=== PATIENT | male | born 1945 | race Caucasian/White ===

== ENCOUNTER 2016-12-12 14:44 | Inpatient (IN) | payer MEDICARE ==
--- NOTE | 2016-12-12 15:49 | ED ---
Recheck HPI - General Chief Complaint: Recheck/Abnormal Lab/Rx Stated Complaint: low blood sugar; sent from Dialysis Center Time Seen by Provider: 12/12/16 15:20 Source: patient, family, RN notes reviewed Mode of arrival: wheelchair Limitations: no limitations - History of Present Illness Initial Comments: This is a 71-year-old male with history of chronic renal failure on dialysis who was sent here for evaluation for low hemoglobin and low blood pressure. He feels generally tired and weak denies any fevers chills or sweats he states he always have black stool because he is iron infusions as well as oral iron he denies any change in texture or the color of his stool is had no bright red blood or burgundy colored stools. No bleeding from any other source. He states she's had this before and he could never find a source of bleeding. Per family he did have blood work done today at the Dialysis [facility]tr[facility] which showed a hemoglobin of 5.4 this is down from where was a month ago. - Related Data Home Medications Medication Instructions Recorded Confirmed ALPRAZolam [Xanax] 0.5 mg PO HS 12/12/16 12/12/16 Albuterol Inhaler [Ventolin Hfa 2 puff INHALATION RT-QID PRN 12/12/16 12/12/16 Inhaler] Budesonide/Formoterol Fumarate 2 puff INHALATION RT-BID 12/12/16 12/12/16 [Symbicort 80-4.5 Mcg Inhaler] Cholecalciferol [Vitamin D3] 1,000 unit PO DAILY 12/12/16 12/12/16 Clopidogrel Bisulfate [Plavix] 75 mg PO DAILY 12/12/16 12/12/16 Levothyroxine Sodium [Synthroid] 100 mcg PO DAILY 12/12/16 12/12/16 Liothyronine Sodium [Cytomel] 5 mcg PO BID 12/12/16 12/12/16 Mirtazapine [Remeron] 15 mg PO HS 12/12/16 12/12/16 Multivitamin [Men's Multi-Vitamin] 1 tab PO DAILY 12/12/16 12/12/16 Omeprazole [PriLOSEC] 20 mg PO AC-BRKFST 12/12/16 12/12/16 Tamsulosin [Flomax] 0.4 mg PO DAILY 12/12/16 12/12/16 Ubidecarenone [Co Q-10] 100 mg PO DAILY 12/12/16 12/12/16 Velphoro 500 mg PO AC-TID 12/12/16 12/12/16 Allergies Allergy/AdvReac Type Severity Reaction Status Date / Time cimetidine Allergy Nausea & Verified 12/12/16 15:17 Vomiting & Diarrhea Penicillins Allergy Rash/Hives Verified 12/12/16 15:17 Review of Systems ROS Statement: Those systems with pertinent positive or pertinent negative responses have been documented in the HPI. ROS Other: All systems not noted in ROS Statement are negative. Past Medical History Past Medical History: Coronary Artery Disease (CAD), Chest Pain / Angina, COPD, Hyperlipidemia, Renal Disease History of Any Multi-Drug Resistant Organisms: None Reported Past Surgical History: AICD, Heart Catheterization With Stent Past Psychological History: No Psychological Hx Reported Smoking Status: Former smoker Past Alcohol Use History: None Reported Past Drug Use History: None Reported General Exam - General Exam Comments Initial Comments: This is a well-developed well-nourished awake alert oriented 3 male Limitations: no limitations General appearance: alert Head exam: Present: atraumatic, normocephalic, normal inspection Eye exam: Present: normal appearance, PERRL, EOMI. Absent: scleral icterus, conjunctival injection, periorbital swelling ENT exam: Present: normal exam, mucous membranes moist Neck exam: Present: normal inspection. Absent: tenderness, meningismus, lymphadenopathy Respiratory exam: Present: normal lung sounds bilaterally. Absent: respiratory distress, wheezes, rales, rhonchi, stridor Cardiovascular Exam: Present: regular rate, normal rhythm, normal heart sounds. Absent: systolic murmur, diastolic murmur, rubs, gallop, clicks GI/Abdominal exam: Present: soft, normal bowel sounds. Absent: distended, tenderness, guarding, rebound, rigid Extremities exam: Present: normal inspection, full ROM, normal capillary refill. Absent: tenderness, pedal edema, joint swelling, calf tenderness Back exam: Present: normal inspection Neurological exam: Present: alert, oriented X3, CN II-XII intact Psychiatric exam: Present: normal affect, normal mood Skin exam: Present: warm, dry, intact, pallor. Absent: rash Course Vital Signs 12/12/16 12/12/16 12/12/16 14:52 15:36 15:42 Temperature 97.5 F L Pulse Rate 67 70 Respiratory 20 18 Rate Blood Pressure 81/46 72/45 81/47 O2 Sat by Pulse 88 L 92 L 93 L Oximetry 12/12/16 12/12/16 16:05 16:39 Temperature Pulse Rate 76 Respiratory 18 Rate Blood Pressure 86/48 86/51 O2 Sat by Pulse 100 Oximetry Medical Decision Making - Medical Decision Making I did discuss findings with the patient and family as well as with Dr. Traylor patient will be admitted to units of blood been ordered the lab work is pending from the other facility. - EKG Data -: EKG Interpreted by Me (EKG shows a pacemaker rhythm with occasional P PVCs. Rate was 74 QRS of 20) Disposition Clinical Impression: Anemia, Chronic renal failure syndrome Disposition: ADMITTED IP TO THIS HOSP Condition: Stable
--- NOTE | 2016-12-12 16:53 | ED ---
Disposition Clinical Impression: Anemia, Chronic renal failure syndrome, Hypotensive episode Disposition: ADMITTED IP TO THIS HOSP Condition: Stable Referrals: Jamal Posada DO [Primary Care Provider] - 1-2 days
[2016-12-12 17:16] LABS: Anisocytosis Moderate; Basophils % (A) 1 %; CH 32.3; CHCM 30.5; Eosinophils # (A) 0.3 k/uL (0-0.7); Eosinophils % (A) 11 %; HCT 21.3 % (39.0-53.0); HDW 3.13; Hypochromasia Moderate; Luc # (Auto) 0.11; Luc % (Auto) 4; Lymphocytes # (A) 0.4 k/uL (1.0-4.8); Lymphocytes % (A) 15 %; MCH 32.3 pg (25.0-35.0); MCHC 30.2 g/dL (31.0-37.0); Macrocytosis Marked; Mean Platelet Volume 8.3; Monocytes # (A) 0.2 k/uL (0-1.0); Monocytes % (A) 9 %; Neutrophils # (A) 1.5 k/uL (1.3-7.7); Neutrophils % (A) 60 %; RBC 1.99 m/uL (4.30-5.90); RDW 23.2 % (11.5-15.5); WBC 2.5 k/uL (3.8-10.6); WBC (Perox) 2.52
[2016-12-12 17:21] LABS: HGB 6.4 gm/dL (13.0-17.5)
[2016-12-12 18:45] LABS: Manual Review Performed; Polychromasia Present
[2016-12-12 18:46] LABS: Ovalocytes Present
[2016-12-12 19:01] LABS: Calcium 8.8 mg/dL (8.4-10.2); Potassium 3.3 mmol/L (3.5-5.1); Total Protein 6.1 g/dL (6.3-8.2)
[2016-12-12 19:06] LABS: INR 1.2 (<1.1); Partial Thromboplastin Time 26.7 sec (22.0-30.0); Prothrombin Time 11.5 sec (9.0-12.0)
[2016-12-12 19:16] LABS: Creatine Kinase MB 2.1 ng/mL (0.0-2.4)
[2016-12-12 19:18] LABS: Troponin I 0.27 ng/mL (0.000-0.034)
[2016-12-12] MEDS ORDERED: NALOXONE 0.4 MG/ML 1 ML VIAL IV PRN (21:19)
[2016-12-12 22:35] LABS: Glucose,Whole Blood 94 mg/dL (75-99)
[2016-12-12 23:32] VITALS: BMI 21.7
[2016-12-12] MEDS ORDERED: Potassium Replacement Protocol 1 EACH MISC MISCELLANE PRN (23:47)
[2016-12-13] MEDS: POTASSIUM CHLORIDE ORAL LIQUID 40 MEQ/30 ML CUP NG-TUBE SCH ×2 (00:05→03:43)
[2016-12-13] MEDS ORDERED: SODIUM CHLORIDE 0.9% 1,000 ML IV SCH (00:45)
[2016-12-13 05:24] LABS: Calcium 8.8 mg/dL (8.4-10.2); Magnesium 2.1 mg/dL (1.6-2.3); Phosphorous 3.6 mg/dL (2.5-4.5)
[2016-12-13 05:55] LABS: Anisocytosis Moderate; Aty Lym Flag Slight; CH 31.8; CHCM 30.4; HCT 28.2 % (39.0-53.0); HDW 4.01; Hypochromasia Marked; MCH 32.5 pg (25.0-35.0); MCHC 30.6 g/dL (31.0-37.0); MCV 106.2 fL (80.0-100.0); Macrocytosis Marked; Mean Platelet Volume 8.3; Poikilocytosis Moderate; RBC 2.65 m/uL (4.30-5.90); RDW 22.9 % (11.5-15.5); WBC 3.4 k/uL (3.8-10.6)
[2016-12-13 05:58] LABS: HGB 8.6 gm/dL (13.0-17.5)
[2016-12-13] MEDS: LEVOTHYROXINE 100 MCG TAB PO SCH (06:27)
[2016-12-13] MEDS ORDERED: BENZOCAINE/MENTHOL LOZENG 1 EACH LOZENGE MUCOUS MEM PRN (06:28)
--- NOTE | 2016-12-13 07:39 | XR ---
EXAMINATION TYPE: XR chest 1V DATE OF EXAM: 12/13/2016 6:32 AM COMPARISON: NONE HISTORY: Shortness of breath TECHNIQUE: Single frontal view of the chest is obtained. FINDINGS: Large right pleural effusion is seen. Cardiomegaly with cardiac device noted. Small left p leural effusion and basilar consolidation. Underlying COPD suspected. Dialysis catheter seen with tip overlying the right atrium. Underlying venous congestion suggested. IMPRESSION: 1. Large right pleural effusion with small left effusion and bilateral lower lobe infiltrate. Correla te for venous congestion.
[2016-12-13] MEDS: SYMBICORT 80-4.5 MCG INHALER INHALATION SCH ×2 (07:54→20:59)
[2016-12-13] MEDS: ALBUTEROL NEBULIZED 2.5 MG/3 ML INHALATION PRN ×3 (07:55→20:59)
[2016-12-13] MEDS: CHOLECALCIFEROL 1,000 UNIT TAB PO SCH (08:45)
[2016-12-13] MEDS: LIOTHYRONINE SODIUM 5 MCG TAB PO SCH ×2 (08:45→20:36)
[2016-12-13] MEDS: PANTOPRAZOLE 40 MG TABLET PO SCH (08:45)
--- NOTE | 2016-12-13 10:42 | P.CNPUL ---
History of Present Illness Consult date: 12/13/16 Reason for consult: other Chief complaint: Abnormal labs, possible pneumonia, renal failure, anemia. History of present illness: 71-year-old gentleman who apparently was sent in from my hemodialysis because of a low hemoglobin. His single lobe was apparently 5.4. The patient was given a 2 units of PRBCs. He is a dialysis patient. His primary doctor is Dr. Posada this he also sees Dr. Escobedo and cardiology. Also sees his hemodialysis doctor. Cannot remember his name. He's currently on 0.9 IV at KVO in 2 L nasal cannula. He was would've a week admission to the ICU. The patient really denies any blood in his stools or black tarry stools. Was vomiting up any blood or anything like that. Anyway the patient was admitted to the ICU for observation and he's been stable here throughout. He was admitted on December 12. Review of Systems A 12 point review of system is really not remarkable. He does have a bit of a cough. Not producing really any phlegm. No fever no chills. No shortness of breath. Feels rather well. Past Medical History Past Medical History: Coronary Artery Disease (CAD), Chest Pain / Angina, COPD, Hyperlipidemia, Renal Disease History of Any Multi-Drug Resistant Organisms: None Reported Past Surgical History: AICD, Heart Catheterization With Stent Past Anesthesia/Blood Transfusion Reactions: No Reported Reaction Date of Last Stent Placement:: april 2016 Type of Cardiac Device: AICD Device Placement Date:: april 2016 Past Psychological History: No Psychological Hx Reported Smoking Status: Former smoker Past Alcohol Use History: None Reported Past Drug Use History: None Reported Medications and Allergies Home Medications Medication Instructions Recorded Confirmed Type ALPRAZolam [Xanax] 0.5 mg PO HS 12/12/16 12/12/16 History Albuterol Inhaler [Ventolin Hfa 2 puff INHALATION RT-QID PRN 12/12/16 12/12/16 History Inhaler] Budesonide/Formoterol Fumarate 2 puff INHALATION RT-BID 12/12/16 12/12/16 History [Symbicort 80-4.5 Mcg Inhaler] Cholecalciferol [Vitamin D3] 1,000 unit PO DAILY 12/12/16 12/12/16 History Clopidogrel Bisulfate [Plavix] 75 mg PO DAILY 12/12/16 12/12/16 History Levothyroxine Sodium [Synthroid] 100 mcg PO DAILY 12/12/16 12/12/16 History Liothyronine Sodium [Cytomel] 5 mcg PO BID 12/12/16 12/12/16 History Mirtazapine [Remeron] 15 mg PO HS 12/12/16 12/12/16 History Multivitamin [Men's Multi-Vitamin] 1 tab PO DAILY 12/12/16 12/12/16 History Omeprazole [PriLOSEC] 20 mg PO AC-BRKFST 12/12/16 12/12/16 History Tamsulosin [Flomax] 0.4 mg PO DAILY 12/12/16 12/12/16 History Ubidecarenone [Co Q-10] 100 mg PO DAILY 12/12/16 12/12/16 History Velphoro 500 mg PO AC-TID 12/12/16 12/12/16 History Allergies Allergy/AdvReac Type Severity Reaction Status Date / Time cimetidine Allergy Nausea & Verified 12/12/16 15:17 Vomiting & Diarrhea Penicillins Allergy Rash/Hives Verified 12/12/16 15:17 Physical Exam Osteopathic Statement: *. No significant issues noted on an osteopathic structural exam other than those noted in the History and Physical/Consult. Vitals: Vital Signs Temp Pulse Resp BP Pulse Ox 12/13/16 10:00 69 12 86/52 100 12/13/16 09:00 69 18 85/52 94 L 12/13/16 08:05 61 12/13/16 08:00 97.3 F L 73 15 91/58 90 L 12/13/16 07:55 62 15 12/13/16 07:00 71 15 90 L 12/13/16 06:00 62 15 84/55 92 L 12/13/16 05:00 71 15 86/55 94 L 12/13/16 04:00 98.0 F 70 14 85/58 92 L 12/13/16 03:00 69 13 86/47 96 12/13/16 01:00 69 15 86/46 93 L 12/13/16 00:17 97.8 F 69 16 88/56 93 L 12/13/16 00:00 97.8 F 70 19 87/50 93 L 12/12/16 23:00 55 L 14 82/49 92 L 12/12/16 22:37 72 16 12/12/16 22:10 97.5 F L 69 18 82/54 94 L 12/12/16 21:50 97.7 F 69 20 81/50 97 12/12/16 21:40 98.2 F 70 20 85/52 95 12/12/16 21:23 97.9 F 70 20 91/52 Intake and Output 12/12/16 12/13/16 12/13/16 21:59 06:59 14:59 Intake Total 80 Output Total Balance 80 Intake: IV 80 .9 Nacl 80 Amount of Fluid Infused ( ml) Oral Blood Product Rc As-1 Unit [id number] Rc As-1 Unit [id number] Output: Urine Other: Voiding Method Urinal Weight No acute distress, oriented 3. Next HEENT examination is grossly unremarkable. Mucous membranes are moist. Next Supple. Full range of motion. No adenopathy. Next Cardiovascular examination reveals regular rhythm rate. Heart sounds are somewhat distant. Lungs reveal relatively clear breath sounds. A few scattered mild rhonchi. No wheezes or crackles. Abdomen soft bowel sounds are heard. Next Extremities are intact. Results - Laboratory Findings CBC and BMP: 12/13/16 04:11 12/13/16 04:11 PT/INR, D-dimer PT 11.5 sec (9.0-12.0) 12/12/16 15:35 INR 1.2 (<1.1) 12/12/16 15:35 Abnormal lab findings: Abnormal Labs 12/13/16 12/13/16 04:11 04:11 WBC 3.4 L RBC 2.65 L Hgb 8.6 L D Hct 28.2 L MCV 106.2 H MCHC 30.6 L RDW 22.9 H Plt Count 83 L BUN 24 H Creatinine 3.00 H - Diagnostic Findings Chest x-ray: image reviewed (Chest x-ray labs and medications are reviewed. Chest x-ray appears to show either fluid or infiltrate at the right lung base.) Assessment and Plan (1) Pneumonia Status: Acute (2) Pleural effusion Status: Acute (3) Anemia Status: Acute (4) Chronic renal failure syndrome Status: Acute (5) Hypotensive episode Status: Acute Plan: Plan The patient's doing well. He can be transferred out to the general medical floor. No additional recommendations are made. Labs medications x-rays are all reviewed. His overall condition is very stable. Not really having any respiratory issues or hemodynamic issues at this time. Feeling well. Again only up 0.9 at KVO on 2 L nasal cannula. Did receive 2 units of PRBCs. Time with Patient: Greater than 30
--- NOTE | 2016-12-13 12:13 | P.CRDCN ---
History of Present Illness Reason for Consult (text): Cardiomyopathy. History of present illness: This 71-year-old gentleman who is seen for cardiac evaluation. This patient was sent from the dialysis because of the low pressure and low hemoglobin. This patient had a fall couple of days ago he did have some bleeding from his arm. Hemoglobin initially was 5.4. He subsequently admitted to the intensive care unit. This patient has a known coronary artery disease and he had a stent placed in April 2016 at [facility]. This has subsequently had an AICD placed in and he is on dialysis since June. Patient otherwise was doing fairly well. Physically and functionally independent. She denies any orthopnea PND or denies any significant chest pain. Past Medical History Past Medical History: Coronary Artery Disease (CAD), Chest Pain / Angina, COPD, Hyperlipidemia, Renal Disease History of Any Multi-Drug Resistant Organisms: None Reported Past Surgical History: AICD, Heart Catheterization With Stent Past Anesthesia/Blood Transfusion Reactions: No Reported Reaction Date of Last Stent Placement:: april 2016 Type of Cardiac Device: AICD Device Placement Date:: april 2016 Past Psychological History: No Psychological Hx Reported Smoking Status: Former smoker Past Alcohol Use History: None Reported Past Drug Use History: None Reported Medications and Allergies Home Medications Medication Instructions Recorded Confirmed Type ALPRAZolam [Xanax] 0.5 mg PO HS 12/12/16 12/12/16 History Albuterol Inhaler [Ventolin Hfa 2 puff INHALATION RT-QID PRN 12/12/16 12/12/16 History Inhaler] Budesonide/Formoterol Fumarate 2 puff INHALATION RT-BID 12/12/16 12/12/16 History [Symbicort 80-4.5 Mcg Inhaler] Cholecalciferol [Vitamin D3] 1,000 unit PO DAILY 12/12/16 12/12/16 History Clopidogrel Bisulfate [Plavix] 75 mg PO DAILY 12/12/16 12/12/16 History Levothyroxine Sodium [Synthroid] 100 mcg PO DAILY 12/12/16 12/12/16 History Liothyronine Sodium [Cytomel] 5 mcg PO BID 12/12/16 12/12/16 History Mirtazapine [Remeron] 15 mg PO HS 12/12/16 12/12/16 History Multivitamin [Men's Multi-Vitamin] 1 tab PO DAILY 12/12/16 12/12/16 History Omeprazole [PriLOSEC] 20 mg PO AC-BRKFST 12/12/16 12/12/16 History Tamsulosin [Flomax] 0.4 mg PO DAILY 12/12/16 12/12/16 History Ubidecarenone [Co Q-10] 100 mg PO DAILY 12/12/16 12/12/16 History Velphoro 500 mg PO AC-TID 12/12/16 12/12/16 History Allergies Allergy/AdvReac Type Severity Reaction Status Date / Time cimetidine Allergy Nausea & Verified 12/12/16 15:17 Vomiting & Diarrhea Penicillins Allergy Rash/Hives Verified 12/12/16 15:17 Physical Exam Vitals: Vital Signs Temp Pulse Resp BP Pulse Ox 12/13/16 10:00 69 12 86/52 100 12/13/16 09:00 69 18 85/52 94 L 12/13/16 08:05 61 12/13/16 08:00 97.3 F L 73 15 91/58 90 L 12/13/16 07:55 62 15 12/13/16 07:00 71 15 90 L 12/13/16 06:00 62 15 84/55 92 L 12/13/16 05:00 71 15 86/55 94 L 12/13/16 04:00 98.0 F 70 14 85/58 92 L 12/13/16 03:00 69 13 86/47 96 12/13/16 01:00 69 15 86/46 93 L 12/13/16 00:17 97.8 F 69 16 88/56 93 L 12/13/16 00:00 97.8 F 70 19 87/50 93 L 12/12/16 23:00 55 L 14 82/49 92 L 12/12/16 22:37 72 16 12/12/16 22:10 97.5 F L 69 18 82/54 94 L 12/12/16 21:50 97.7 F 69 20 81/50 97 12/12/16 21:40 98.2 F 70 20 85/52 95 12/12/16 21:23 97.9 F 70 20 91/52 Intake and Output 12/12/16 12/13/16 12/13/16 21:59 06:59 14:59 Intake Total 80 Output Total Balance 80 Intake: IV 80 .9 Nacl 80 Amount of Fluid Infused ( ml) Oral Blood Product Rc As-1 Unit [id number] Rc As-1 Unit [id number] Output: Urine Other: Voiding Method Urinal Weight This patient is comfortable and is not in any acute distress. Vital signs are reviewed. HEENT negative. . Supple there is no increase in jugular venous pressure. No carotid bruits noted. Heart. First and second heart sounds are normal. No significant murmurs are heard. Lungs. The diminished percussive note in the lower one half of the lung field on the right side. Bilateral wheezing noted. Abdomen is soft. Extremities no evidence of any leg edema. EKG shows normal sinus rhythm with ventricular pacing. Chest x-ray shows evidence of moderate sized pleural effusion on the right side. Results 12/13/16 04:11 12/13/16 04:11 CBC 12/13/16 Range/Units 04:11 WBC 3.4 L (3.8-10.6) k/uL RBC 2.65 L (4.30-5.90) m/uL Hgb 8.6 L D (13.0-17.5) gm/dL Hct 28.2 L (39.0-53.0) % Plt Count 83 L (150-450) k/uL Comprehensive Metabolic Panel 12/13/16 Range/Units 04:11 Sodium 137 (137-145) mmol/L Potassium 4.0 (3.5-5.1) mmol/L Chloride 99 (98-107) mmol/L Carbon Dioxide 27 (22-30) mmol/L BUN 24 H (9-20) mg/dL Creatinine 3.00 H (0.66-1.25) mg/dL Glucose 87 (74-99) mg/dL Calcium 8.8 (8.4-10.2) mg/dL Current Medications Generic Name Dose Route Start Last Admin Trade Name Freq PRN Reason Stop Dose Admin Albuterol Sulfate 2.5 mg 12/12/16 21:21 12/13/16 07:55 Ventolin Nebulized INHALATION 2.5 mg RT-QID PRN Administration Shortness Of Breath Alprazolam 0.5 mg 12/13/16 21:00 Xanax PO HS [facility] Aspirin 81 mg 12/14/16 09:00 Aspirin PO DAILY [facility] Benzocaine/Menthol 1 each 12/13/16 06:28 Cepacol Lozenge MUCOUS MEM Q4HR PRN Cough Budesonide/Formoterol Fumarate 2 puff 12/13/16 08:00 12/13/16 07:54 Symbicort 80-4.5 Mcg Inhaler INHALATION 2 puff RT-BID [facility] Administration Cholecalciferol 1,000 unit 12/13/16 09:00 12/13/16 08:45 Vitamin D3 PO 1,000 unit DAILY [facility] Administration Clopidogrel Bisulfate 75 mg 12/14/16 09:00 Plavix PO DAILY [facility] Sodium Chloride 1,000 mls @ 20 mls/hr 12/13/16 00:45 12/13/16 03:43 Saline 0.9% IV 20 mls/hr .Q24H [facility] Administration Levothyroxine Sodium 100 mcg 12/13/16 06:30 12/13/16 06:27 Synthroid PO 100 mcg 0630 [facility] Administration Liothyronine Sodium 5 mcg 12/13/16 09:00 12/13/16 08:45 Cytomel PO 5 mcg BID [facility] Administration Mirtazapine 15 mg 12/13/16 21:00 Remeron PO HS [facility] Miscellaneous Information 1 each 12/12/16 23:47 Potassium Per Protocol MISCELLANE DAILY PRN Per Protocol Protocol Naloxone HCl 0.2 mg 12/12/16 21:19 Narcan IV Q2M PRN Opioid Reversal Pantoprazole Sodium 40 mg 12/13/16 07:30 12/13/16 08:45 Protonix PO 40 mg AC-BRKFST [facility] Administration Intake and Output 12/12/16 12/13/16 12/13/16 21:59 06:59 14:59 Intake Total 80 Output Total Balance 80 Intake: IV 80 .9 Nacl 80 Amount of Fluid Infused ( ml) Oral Blood Product Rc As-1 Unit [id number] Rc As-1 Unit [id number] Output: Urine Other: Voiding Method Urinal Weight 12/13/16 04:11 12/13/16 04:11 Assessment and Plan Plan: This patient has a history of ischemic cardiomyopathy with a prior history of post stent and AICD placement. Patient has evidence of probably congestive heart failure and some degree of fluid overload. Patient's low hemoglobin is improved. We will switch the patient from Effient or Plavix 75 mg daily. Fully with his dialysis is fluid volume will be corrected. We will do echo and Doppler study.
--- NOTE | 2016-12-13 12:41 | CONS ---
DATE OF CONSULTATION: 12/13/2016 REASON FOR CONSULTATION: End-stage renal disease. HISTORY OF PRESENT ILLNESS: Patient is a 71-year-old male who was currently on dialysis on a Wednesday, , Wednesday schedule at [facility]. His back tender pulp drier is Dr. Stovall. Patient was admitted to the hospital with a severely low hemoglobin of 5.4 g/dL. Patient had hurt his left forearm. He had peeling of the skin and significant bleeding from that site. He denies any obvious GI bleeding. He has been transfused 2 units packed RBCs. His current hemoglobin is at 8.6 g/dL. Patient has been hemodynamically stable. PAST MEDICAL HISTORY: End-stage renal disease on dialysis in June of 2016. Coronary artery disease, COPD, hyperlipidemia, CKD bone mineral disorder. PAST SURGICAL HISTORY: Cardiac catheterization, coronary stent placement, AICD placement. SOCIAL HISTORY: Patient is an ex-smoker. Medications at home include Xanax, Vitamin D3, Plavix, Synthroid, Cytomel, Remeron, Prilosec, Flomax, Velphoro, CO Q-10. Allergies include PENICILLIN, CIMETIDINE. On examination, patient is currently comfortable, awake, not in any acute distress. Alert and oriented x3. Blood pressure is 85/52, heart rate 69 per minute. He is afebrile. Examination of the heart, S1 and S2. Examination of lungs, good air entry bilaterally. No crackles or wheezing is heard. Abdomen is soft, nontender. Examination of lower extremities shows no significant edema. NON DESTRUCTIVE EVALUATION SPECIALIST exam is grossly intact. Labs show sodium 137, potassium 4.0. Hemoglobin 8.6 g/dL. ASSESSMENT: 1. End-stage renal disease, on hemodialysis on a Wednesday, , Wednesday schedule. Patient has received 2 units packed RBCs; however, he is not in obvious volume overload. We will assess him tomorrow regarding need for dialysis. Otherwise, he can be dialyzed on his regular day which is Wednesday. 2. Severe anemia with bleeding from skin tear in the right forearm. No obvious GI bleed, status post 2 units packed RBC transfusion, currently at 8.6. Continue to monitor the hemoglobin. 3. Chronic obstructive pulmonary disease, being followed by Pulmonology, maintained on breathing treatments. 4. Pleural effusion, possibly chronic. 5. Coronary artery disease with history of coronary artery stenting. 6. Hypotension, most likely secondary to severe anemia. PLAN: Will assess for need for dialysis tomorrow morning. Continue to follow the hemoglobin levels. Thank you for this consultation.
[2016-12-13 13:41] LABS: Add Differential Manual Differential
[2016-12-13 13:45] LABS: Nucleated Red Blood Cells 0 /100 WBC (0-0); Total Cells Counted 100
[2016-12-13 13:46] LABS: Ovalocytes Present; Polychromasia Present; Target Cells Present
[2016-12-13] MEDS: TAMSULOSIN 0.4 MG CAP.ER.24H PO SCH (17:30)
[2016-12-13] MEDS: CLOPIDOGREL 75 MG TAB PO SCH (17:30)
[2016-12-13] MEDS: SEVELAMER 800 MG TAB PO SCH (17:30)
--- NOTE | 2016-12-13 19:22 | HP ---
DATE OF ADMISSION: 12/12/2016 PRESENTING COMPLAINT: Weak, tired, low hemoglobin. HISTORY OF PRESENTING COMPLAINT: This is a 71-year-old patient of Dr. Posada, rather extensive medical history, was sent in because the patient has been feeling weak, tired, rundown. Patient's hemoglobin was 6.4. Patient does go for his dialysis to [facility]. Patient's chronic stable medical conditions include coronary artery disease, stents, COPD, hyperlipidemia, end-stage kidney disease on hemodialysis Wednesday, and Wednesday, AICD. Patient also has got some insomnia, hypothyroid, BPH, anxiety. Patient had a unilateral kidney, had a cardiac cath recently and then went on dialysis. Patient has also got an abdominal aneurysm. Patient did take a fall 2 to 3 days ago, had a lot of bleeding from his right hand as the skin is thin. Patient was ordered 2 units of blood. He also was hypotensive when he first presented with the blood pressure down in the 80s systolic. Patient's and son at the bedside. Patient initially was admitted into the ICU. REVIEW OF SYSTEMS: CONSTITUTIONAL: Weak and tired. HEENT: Decreased hearing. RESPIRATORY: Baseline short of breath. CARDIOVASCULAR: No chest pain. GASTROINTESTINAL: Occasional loose dark stools and work-up in the past has been negative. HEMATOLOGICAL: Bruising. DERMATOLOGICAL: Dry and thin skin. LYMPHATICS: None. PSYCHIATRY: None. NEUROLOGICAL: No focal weakness. Past medical history of coronary disease and stent, COPD, hyperlipidemia, end-stage kidney disease, hemodialysis, had unilateral kidney, AICD, COPD, insomnia, hyperthyroid, BPH, anxiety, abdominal aneurysm, no appetite. PAST SURGICAL HISTORY: AICD, cardiac cath with stent in April of 2016. PAST SOCIAL HISTORY: Patient smoked about 50 years; stopped last year. Does use a cane, retired police patrol officer, . FAMILY HISTORY: Reviewed, noncontributory to presentation. HOME MEDICATIONS: 1. Remeron 50 mg q.h.s. 2. Men's multivitamin 1 tablet p.o. daily. 3. Ventolin HFA 2 puffs q.i.d. p.r.n. 4. Co Q-10 one hundred mg p.o. daily. 5. Velphoro 500 mg a.c. t.i.d. 6. Xanax 0.5 mg q.h.s. 7. Flomax 0.4 mg p.o. daily. 8. Vitamin D3 three thousand units p.o. daily. 9. Symbicort 80/4.5 two puffs b.i.d. 10. Prilosec 20 mg p.o. at breakfast. 11. Cytomel 5 mcg p.o. b.i.d. 12. Synthroid 100 mcg p.o. daily. 13. Plavix 75 mg p.o. daily. Allergy to CIMETIDINE and PENICILLIN. On examination, vitals on presentation: Temperature 97.5, pulse 67, respirations 20, blood pressure 81/46, pulse ox 92% on room air. GENERAL APPEARANCE: Thin built, lying in bed, awake. EYES: Pupils equal. Conjunctivae are pale. HEENT: Oral cavity dry. NECK: JVD not raised. Mass not palpable. Respiratory effort normal. LUNGS: Diminished breath sounds. CARDIOVASCULAR: First and second sounds normal. No edema. ABDOMEN: Soft, nontender. Liver and spleen not palpable. LYMPHATIC: No lymph nodes palpable in neck or axillae. PSYCHIATRY: Alert and oriented x3, mood and affect normal. NEUROLOGICAL: Pupils equal. Cranial nerves grossly intact. Power and sensation grossly intact. MUSCULOSKELETAL: Evidence of osteoarthritis of multiple joints. DERMATOLOGICAL: Diffuse bruising and patient has got a dressing of the right hand where he had bled. INVESTIGATIONS: White count 2.5, hemoglobin 6.4 after transfusion. 8.6, MCV 107, platelets 83, potassium 3.3, BUN 23, creatinine 2.46. Troponin 0.27. ASSESSMENT: 1. Acute severe symptomatic blood loss anemia causing hypotension from blood loss from injury to the right hand when patient fell. 2. Hypotension from blood loss, present on admission. 3. End-stage kidney disease on hemodialysis Tuesdays, and Wednesday. 4. Chronic obstructive pulmonary disease in an ex-smoker. 5. AICD in place. 6. Hyperlipidemia. 7. Hypothyroidism. Rule out over-replacement. Patient is rather thin built. 8. Abdominal aortic aneurysm. 9. Benign prostatic hypertrophy. 10. Possible underlying chronic anemia, underlying end-stage kidney disease. 11. Troponin leak, not significant with no acute coronary syndrome symptoms likely from hypotension. PLAN: Patient did receive 2 units of blood. Patient will ( ) PPI, has had a previous GI work-up, has no need for further endoscopy at least at this point. This was discussed with the family. They are agreeable to the same. The patient may need erythropoietin injections for his renal failure. Care was discussed with the patient and family at the bedside. Patient probably cannot use the Symbicort inhaler, hence he will use nebulized bronchodilators and Pulmicort. Will also check patient's thyroid status and iron status. Consultation with Nephrology is being done. Care was discussed with the patient's family in detail.
[2016-12-13] MEDS: MELATONIN 3 MG TABLET PO SCH (20:36)
[2016-12-13] MEDS: ALPRAZolam 0.5 MG TAB PO SCH (20:36)
[2016-12-13] MEDS ORDERED: MIRTAZAPINE 15 MG TAB PO SCH (21:00)
[2016-12-14] MEDS: LEVOTHYROXINE 100 MCG TAB PO SCH (06:25)
--- NOTE | 2016-12-14 07:57 | XR ---
EXAMINATION TYPE: XR chest 1V DATE OF EXAM: 12/14/2016 7:34 AM COMPARISON: Prior chest x-ray 13 December 2016 HISTORY: Shortness of breath TECHNIQUE: Single frontal view of the chest is obtained. FINDINGS: Right jugular central venous catheter is present, distal tip is within the right atrium. G enerator is in the left pectoral region, there are leads in the right ventricle, coronary sinus. Basi lar density persists on the right, there is blunting of the costophrenic angles. No evident pneumotho rax. Heart size is stable. Interstitium is increased. Basilar density is greater on the right than on the left. IMPRESSION: Correlate for possible volume overload, congestive heart failure. Similar findings. Ther e may be a loculated right effusion.
[2016-12-14] MEDS: SEVELAMER 800 MG TAB PO SCH ×3 (08:14→16:21)
[2016-12-14] MEDS: PANTOPRAZOLE 40 MG TABLET PO SCH (08:14)
[2016-12-14] MEDS: CHOLECALCIFEROL 1,000 UNIT TAB PO SCH (08:15)
[2016-12-14] MEDS: LIOTHYRONINE SODIUM 5 MCG TAB PO SCH ×2 (08:15→21:54)
[2016-12-14] MEDS: ASPIRIN 81 MG CHEW PO SCH (08:15)
[2016-12-14] MEDS: CLOPIDOGREL 75 MG TAB PO SCH (08:15)
[2016-12-14] MEDS: TAMSULOSIN 0.4 MG CAP.ER.24H PO SCH (08:16)
[2016-12-14] MEDS: ALBUTEROL NEBULIZED 2.5 MG/3 ML INHALATION PRN (08:37)
[2016-12-14] MEDS: SYMBICORT 80-4.5 MCG INHALER INHALATION SCH (08:37)
[2016-12-14] MEDS ORDERED: CLOPIDOGREL 75 MG TAB PO SCH (09:00)
[2016-12-14 09:51] LABS: Anisocytosis Moderate; Basophils % (A) 1 %; CH 31.9; CHCM 30.9; Eosinophils # (A) 0.4 k/uL (0-0.7); Eosinophils % (A) 12 %; HCT 27.4 % (39.0-53.0); HDW 3.76; HGB 8.4 gm/dL (13.0-17.5); Hypochromasia Marked; Luc # (Auto) 0.13; Luc % (Auto) 4; Lymphocytes # (A) 0.4 k/uL (1.0-4.8); Lymphocytes % (A) 12 %; MCH 32.3 pg (25.0-35.0); MCHC 30.8 g/dL (31.0-37.0); MCV 104.8 fL (80.0-100.0); Macrocytosis Marked; Mean Platelet Volume 9.3; Monocytes # (A) 0.2 k/uL (0-1.0); Monocytes % (A) 7 %; Neutrophils % (A) 63 %; Poikilocytosis Slight; RBC 2.61 m/uL (4.30-5.90); RDW 21.9 % (11.5-15.5); WBC 3.2 k/uL (3.8-10.6); WBC (Perox) 3.25
--- NOTE | 2016-12-14 10:22 | P.PN ---
Subjective Patient is feeling better this morning is not short of breath. Is being dialyzed at the moment. Denies chest pain or difficulty in breathing. An echocardiogram I'm going to review the results Objective - Vital Signs Vital signs: Vital Signs Temp 97.3 F L 12/14/16 07:00 Pulse 72 12/14/16 08:50 Resp 19 12/14/16 07:00 BP 96/64 12/14/16 07:00 Pulse Ox 94 L 12/14/16 08:38 Intake & Output 12/13/16 12/14/16 12/14/16 18:59 06:59 18:59 Intake Total 80 Balance 80 Weight 76 kg Intake: IV 80 .9 Nacl 80 Other: Voiding Method Urinal Urinal # Voids 2 # Bowel Movements 0 - Exam Patient is comfortable at rest vital signs are stable chest exam reveals diminished air entry at the bases heart exam reveals first and second heart sounds systolic murmur at the left lower sternal border abdomen is soft exam extremities reveals bilateral 1+ edema - Labs CBC & Chem 7: 12/14/16 08:16 12/13/16 04:11 Labs: Abnormal Lab Results - Last 24 Hours (Table) 12/13/16 12/14/16 Range/Units 04:11 08:16 WBC 3.4 L 3.2 L (3.8-10.6) k/uL RBC 2.65 L 2.61 L (4.30-5.90) m/uL Hgb 8.6 L D 8.4 L (13.0-17.5) gm/dL Hct 28.2 L 27.4 L (39.0-53.0) % MCV 106.2 H 104.8 H (80.0-100.0) fL MCHC 30.6 L 30.8 L (31.0-37.0) g/dL RDW 22.9 H 21.9 H (11.5-15.5) % Plt Count 83 L 82 L (150-450) k/uL Lymphocytes # (Manual) 0.7 L (1.0-4.8) k/uL Assessment and Plan Plan: Shortness of breath secondary to anemia Known cardiomyopathy status post AICD CAD End-stage renal disease and hemodialysis I'm going to review the echocardiogram I reviewed labs I reviewed current medications reviewed the initial consultation
[2016-12-14 10:48] LABS: Manual Review Performed
[2016-12-14 11:35] LABS: Magnesium 2.2 mg/dL (1.6-2.3); Potassium 4.7 mmol/L (3.5-5.1)
[2016-12-14 11:47] LABS: % Iron Saturation 23.1 % (20-50)
--- NOTE | 2016-12-14 11:58 | ECHOF ---
Referral Reason:elevated troponins MEASUREMENTS -------- HEIGHT: 182.9 cm WEIGHT: 75.8 kg BP: 90/56 RVIDd: 3.4 cm (< 3.3) IVSd: 1.1 cm (0.6 - 1.1) LVIDd: 5.1 cm (3.9 - 5.3) LVPWd: 1.1 cm (0.6 - 1.1) IVSs: 1.5 cm LVIDs: 4.5 cm LVPWs: 1.4 cm LA Diam: 4.3 cm (2.7 - 3.8) LAESV Index (A-L): 35.24 ml/m Ao Diam: 2.7 cm (2.0 - 3.7) AV Cusp: 1.7 cm (1.5 - 2.6) LA Diam: 4.5 cm (2.7 - 3.8) MV EXCURSION: 8.677 mm (> 18.000) MV EF SLOPE: 58 mm/s (70 - 150) EPSS: 0.8 cm MV E Thierry: 0.96 m/s MV DecT: 216 ms MV A Thierry: 0.25 m/s MV E/A Ratio: 3.84 RAP: 15.00 mmHg RVSP: 47.51 mmHg FINDINGS -------- Paced rhythm. Pacerwire seen in RV and RA. This was a technically good study. There is borderline concentric left ventricular hypertrophy. Overall left ventricular systolic function is severely impaired with, an EF between 25 - 30 %. The right ventricle is mildly enlarged. LA is moderately dilated 34-39 ml/m2 The right atrium is normal in size. Aortic valve is trileaflet and is mildly thickened. The mitral valve leaflets are mild to moderately thickened. Moderate mitral annular calcification present. Mild mitral regurgitation is present. The peak and mean MV gradients are 4.48mmHg 1.36mmHg as measured by doppler. Mild tricuspid regurgitation present. There is mild to moderate pulmonary hypertension. The right ventricular systolic pressure, as measured by Doppler, is 47.51mmHg. Moderate pulmonic regurgitation. The aortic root size is normal. The inferior vena cava is dilated with no significant inspiratory collapse which is consistent estimated right atrial pressure of >15 mmHg. There is a small, generalized pericardial effusion present. CONCLUSIONS -------- 1. Paced rhythm. 2. The mitral valve leaflets are mild to moderately thickened. 3. Moderate mitral annular calcification present. 4. Mild mitral regurgitation is present. 5. The peak and mean MV gradients are 4.48mmHg 1.36mmHg as measured by doppler. 6. Mild tricuspid regurgitation present. 7. There is mild to moderate pulmonary hypertension. 8. The right ventricular systolic pressure, as measured by Doppler, is 47.51mmHg. 9. Moderate pulmonic regurgitation. 10. The aortic root size is normal. 11. The inferior vena cava is dilated with no significant inspiratory collapse which is consistent estimated right atrial pressure of >15 mmHg. 12. Pacerwire seen in RV and RA. 13. There is a small, generalized pericardial effusion present. 14. This was a technically good study. 15. There is borderline concentric left ventricular hypertrophy. 16. Overall left ventricular systolic function is severely impaired with, an EF between 25 - 30 %. 17. The right ventricle is mildly enlarged. 18. LA is moderately dilated 34-39 ml/m2 19. The right atrium is normal in size. 20. Aortic valve is trileaflet and is mildly thickened. CABLE WIRER: Garland Roman RDCS
--- NOTE | 2016-12-14 13:23 | P.PN ---
Subjective 71-year-old gentleman who apparently was sent in from my hemodialysis because of a low hemoglobin. His single lobe was apparently 5.4. The patient was given a 2 units of PRBCs. He is a dialysis patient. The patient really denies any blood in his stools or black tarry stools. He Was vomiting up any blood.The patient was initially admitted to the ICU because of his low hemoglobin. He was given a total of 2 units of packed RBCs. After being stabilized, the patient was moved out of the intensive care unit. He is currently on a medical floor. He is undergoing his routine dialysis which she does typically 3 days a week, Tuesdays, and Saturdays. His chest x- ray shows a chronic and large right-sided pleural effusion and the patient and his are very much aware of that. He is known to have congestion heart failure with an ejection fraction of 25% and he sees Dr. De Anda regarding his congestion heart failure. He has no chest pain. He was treated for a respiratory tract infection and he was given several courses of antibiotics over the past few months. He was also treated for cellulitis of the lower extremities. Objective - Vital Signs Vital signs: Vital Signs Temp 97.3 F L 12/14/16 07:00 Pulse 72 12/14/16 08:50 Resp 19 12/14/16 07:00 BP 96/64 12/14/16 07:00 Pulse Ox 94 L 12/14/16 08:38 Intake & Output 12/13/16 12/14/16 12/14/16 18:59 06:59 18:59 Intake Total 80 Balance 80 Weight 76 kg Intake: IV 80 .9 Nacl 80 Other: Voiding Method Urinal Urinal Urinal # Voids 2 # Bowel Movements 0 - Exam Head exam was generally normal. There was no scleral icterus or corneal arcus. Mucous membranes were moist.Neck was supple and without jugular venous distension, thyromegaly, or carotid bruits. Carotids were easily palpable bilaterally. There was no adenopathy. Lung sounds are diminished in the right lung base along with some dullness to percussion.Cardiac exam revealed the PMI to be normally situated and sized. The rhythm was regular and no extrasystoles were noted during several minutes of auscultation. The first and second heart sounds were normal and physiologic splitting of the second heart sound was noted. There were no murmurs, rubs, clicks, or gallops.Abdominal exam revealed normal bowel sounds. The abdomen was soft, non-tender, and without masses, organomegaly, or appreciable enlargement of the abdominal aorta. Examination of the extremities revealed easily palpable radial, femoral and pedal pulses. There was no cyanosis, clubbing plus 1 edema. - Labs CBC & Chem 7: 12/14/16 08:16 12/14/16 08:16 Labs: Abnormal Lab Results - Last 24 Hours (Table) 12/13/16 12/14/16 12/14/16 Range/Units 04:11 08:16 08:16 WBC 3.4 L 3.2 L (3.8-10.6) k/uL RBC 2.65 L 2.61 L (4.30-5.90) m/uL Hgb 8.6 L D 8.4 L (13.0-17.5) gm/dL Hct 28.2 L 27.4 L (39.0-53.0) % MCV 106.2 H 104.8 H (80.0-100.0) fL MCHC 30.6 L 30.8 L (31.0-37.0) g/dL RDW 22.9 H 21.9 H (11.5-15.5) % Plt Count 83 L 82 L (150-450) k/uL Lymphocytes # 0.4 L (1.0-4.8) k/uL Lymphocytes # (Manual) 0.7 L (1.0-4.8) k/uL Sodium 133 L (137-145) mmol/L Chloride 96 L (98-107) mmol/L BUN 32 H (9-20) mg/dL Creatinine 4.10 H (0.66-1.25) mg/dL TIBC 234 L (261-462) ug/dL TSH 13.300 H (0.465-4.680) mIU/L Assessment and Plan Plan: Assessment 1 right-sided pleural effusion, chronic, no signs of an acute pneumonia this point. This is most likely related to congestion heart failure and today's chest x-ray shows a stable right-sided pleural effusion 2 renal failure, end-stage renal disease currently on hemodialysis and the patient has been on dialysis since jun 2016 via permacath in his right chest area 3 profound anemia with interval drop in his hemoglobin status post transfusion with 2 units of packed RBCs. Hemoglobin is stable for now and there is no signs of GI bleeding 4 congestion heart failure with an ejection fraction of 20-25% secondary pulmonary hypertension 5 chronic anemia 6 COPD 7 peripheral vascular disease 8 recurrence unless of the lower extremities 9 history of pacemaker/defibrillator insertion 10 coronary artery disease with previous coronary intervention and stenting and previous bypass surgery. 11 chronic hypotension 12 hyperlipidemia 13 BPH 14 hypothyroidism Plan The chest x-ray was reviewed. The pleural effusion is most likely chronic and related to congestion heart failure. The patient is undergoing hemodialysis. He is hemodynamically stable. Follow-up with cardiology. Follow-up with nephrology. Monitor the hemoglobin and make sure there is no signs of GI bleeding. Further recommendations are to follow based on this patient's overall clinical progress.
[2016-12-14] MEDS ORDERED: HEPARIN SODIUM,PORCINE 5,000 UNIT/ML 1 ML VIAL ONE (13:30)
[2016-12-14 13:32] LABS: Hepatitis B Surface Ag Index 0.07
--- NOTE | 2016-12-14 19:19 | PN ---
Patient is seen on hemodialysis, tolerating his treatment fairly well. He is awake, comfortable, not in any acute distress. Blood pressure is about 92/53. He is afebrile. Heart rate 72 per minute. EXAMINATION OF THE HEART: S1 and S2. EXAMINATION OF THE LUNGS: Bilateral breath sounds are heard. ABDOMEN: Soft, nontender. Examination of lower extremities shows no evidence of edema. Labs show hemoglobin 8.4, sodium 133, potassium 4.7. ASSESSMENT: 1. End-stage renal disease, on hemodialysis on a Wednesday, , Wednesday schedule out of [place]. Looking to transfer here to [place] once room is available. 2. Severe anemia at the time of admission, currently improved, status post 2 units packed RBC transfusion. 3. Chronic kidney disease bone mineral disorder, maintained on Renvela. 4. Hypothyroidism. PLAN: Repeat dialysis in a.m., as tomorrow is patient's regular day. He can be discharged tomorrow with plans to follow up as outpatient for his regular dialysis on .
[2016-12-14] MEDS: IPRATROPIUM-ALBUTEROL 3 ML NEB INHALATION SCH (21:19)
[2016-12-14] MEDS: BUDESONIDE 0.5 MG/2 ML NEBU INHALATION SCH (21:19)
[2016-12-14] MEDS: MELATONIN 3 MG TABLET PO SCH (21:53)
[2016-12-14] MEDS: ALPRAZolam 0.5 MG TAB PO SCH (21:53)
[2016-12-14 23:08] VITALS: RESP 18
[2016-12-15] MEDS: LEVOTHYROXINE 100 MCG TAB PO SCH (05:53)
[2016-12-15] MEDS: SEVELAMER 800 MG TAB PO SCH ×2 (08:00→12:15)
[2016-12-15] MEDS: BUDESONIDE 0.5 MG/2 ML NEBU INHALATION SCH (08:06)
[2016-12-15] MEDS: IPRATROPIUM-ALBUTEROL 3 ML NEB INHALATION SCH ×2 (08:06→12:05)
[2016-12-15] MEDS: SYMBICORT 80-4.5 MCG INHALER INHALATION SCH (08:14)
[2016-12-15] MEDS: PANTOPRAZOLE 40 MG TABLET PO SCH ×2 (08:15→12:14)
[2016-12-15 08:24] VITALS: BP 97/38; TEMP 97.6
[2016-12-15 09:33] LABS: Calcium 8.8 mg/dL (8.4-10.2); Magnesium 2.1 mg/dL (1.6-2.3); Potassium 4.5 mmol/L (3.5-5.1)
--- NOTE | 2016-12-15 09:37 | PN ---
DATE OF SERVICE: 12/14/2016 PRESENTING COMPLAINT: Weak and tired. INTERVAL HISTORY: This is a patient who presented with severe symptomatic blood loss anemia after he had a bleed from his right hand. Patient has also got kidney disease. Patient is doing better. Tolerating his diet. Got dialyzed today. Review of systems is done for constitutional, cardiovascular, GI, pulmonary; relevant findings as above. Current medications are reviewed. On examination, temperature 97.3, pulse 70, respiration 19, blood pressure 96/64, pulse ox 98% on 2 L. GENERAL APPEARANCE: Sitting up, comfortable. EYES: Pupils equal. Conjunctivae are pale. NECK: JVD not raised. Mass not palpable. Respiratory effort normal. LUNGS: Diminished breath sounds. CARDIOVASCULAR: First and second sounds normal. No edema. ABDOMEN: Soft, nontender. PSYCHIATRY: Awake, answering questions. INVESTIGATIONS: White count 3.2, hemoglobin 8.4, platelets 82. A 2-D echo shows an EF of 25% to 30%. ASSESSMENT: 1. Acute severe symptomatic blood loss anemia causing hypotension from blood loss from injury to the right hand when patient fell. 2. Hypotension from blood loss, present on admission. 3. End-stage kidney disease on hemodialysis on Wednesday, and Wednesday. 4. Chronic obstructive pulmonary disease in an ex-smoker. 5. AICD, chronic. 6. Hyperlipidemia. 7. Hypothyroidism, probably sick euthyroid. 8. Abdominal aortic aneurysm. 9. Benign prostatic hypertrophy. 10. Anemia of chronic disease, probably underlying end-stage kidney disease. 11. Troponin leak, probably with hemodynamic instability. PLAN: Spoke to Dr. Mcelroy, patient will get dialyzed tomorrow morning and then patient can be discharged after that.
[2016-12-15] MEDS ORDERED: DARBEPOETIN ALFA 40 MCG/0.4 ML SYRINGE SQ SCH (12:00)
--- NOTE | 2016-12-15 12:00 | P.PN ---
Subjective Patient is seen in follow-up for end-stage renal disease. He is maintained on hemodialysis on a Wednesday schedule via permacath. Currently undergoing hemodialysis. Patient was noted to have anemia with a hemoglobin of 6.4 for which she did receive 2 units of packed red blood cell transfusion. Hemoglobin is of yesterday was 8.4. Denies any active chest pain or shortness of breath. No vomiting or diarrhea. Appetite is good. Vital signs are stable. General: The patient appeared well nourished and normally developed. HEENT: Head exam is unremarkable. Neck is without jugular venous distension. LUNGS: Lungs are clear to auscultation and percussion. Breath sounds decreased. HEART: Rate and Rhythm are regular. First and second heart sounds normal. No murmurs, rubs or gallops. ABDOMEN: Abdominal exam reveals normal bowel sounds. Non-tender and non- distended. No evidence of peritonitis. EXTREMITITES: No clubbing, cyanosis, or edema. Objective - Vital Signs Vital signs: Vital Signs Temp 97.6 F 12/15/16 07:00 Pulse 74 12/15/16 08:21 Resp 18 12/15/16 08:00 BP 97/38 12/15/16 07:00 Pulse Ox 99 12/15/16 08:08 Intake & Output 12/14/16 12/15/16 12/15/16 18:59 06:59 18:59 Intake Total 480 Output Total 0 Balance 480 0 Weight 76 kg Intake: Oral 480 Output: Urine 0 Other: Voiding Method Urinal Urinal Urinal # Voids 1 1 # Bowel Movements 0 - Labs CBC & Chem 7: 12/14/16 08:16 12/15/16 08:00 Labs: Abnormal Lab Results - Last 24 Hours (Table) 12/14/16 12/15/16 Range/Units 08:16 08:00 Sodium 133 L 135 L (137-145) mmol/L Chloride 96 L 97 L (98-107) mmol/L BUN 32 H 22 H (9-20) mg/dL Creatinine 4.10 H 3.57 H (0.66-1.25) mg/dL TIBC 234 L (261-462) ug/dL TSH 13.300 H (0.465-4.680) mIU/L Assessment and Plan Plan: Assessment: #1. End-stage renal disease maintained on hemodialysis on a Wednesday schedule via permacath. #2. Acute anemia status post packed red blood cell transfusion. #3. Chronic kidney disease mineral bone disease. Plan: Currently undergoing hemodialysis with goal to liters ultrafiltration. Maintain Aranesp. Maintain Renvela with meals. Possible discharge after dialysis today.
[2016-12-15 12:09] VITALS: PULSE 74
[2016-12-15] MEDS: CHOLECALCIFEROL 1,000 UNIT TAB PO SCH ×2 (12:15→12:17)
[2016-12-15] MEDS: ASPIRIN 81 MG CHEW PO SCH ×2 (12:15→12:18)
[2016-12-15] MEDS: TAMSULOSIN 0.4 MG CAP.ER.24H PO SCH (12:16)
[2016-12-15] MEDS: LIOTHYRONINE SODIUM 5 MCG TAB PO SCH (12:16)
[2016-12-15] MEDS: CLOPIDOGREL 75 MG TAB PO SCH (12:16)
--- NOTE | 2016-12-15 13:14 | XR ---
EXAMINATION TYPE: XR chest 1V DATE OF EXAM: 12/15/2016 1:08 PM CLINICAL HISTORY: Difficulty breathing progress study. COPD. TECHNIQUE: Single AP portable upright view of the chest is obtained. COMPARISON: Chest x-ray from one day earlier FINDINGS: There is stable right internal jugular large bore catheter. There is persistent cardiomega ly with dual lead pacemaker/AICD. There is persistent atherosclerotic change of thoracic aorta. There is persistent moderate-sized right pleural effusion. There is persistent bibasilar atelectasis and/o r infiltrate. There is suggestion of central vascular congestion. Chronic parenchymal changes are see n. Upper lungs remain clear without pneumothorax. Osseous structures are demineralized. IMPRESSION: Overall stable findings, cardiomegaly with central vascular congestion and moderate-siz ed right pleural effusion with bibasilar infiltrate and/or atelectasis all redemonstrated. No signifi cant change from prior.
--- NOTE | 2016-12-15 14:05 | P.PN ---
Subjective 71-year-old gentleman who apparently was sent in from my hemodialysis because of a low hemoglobin. His single lobe was apparently 5.4. The patient was given a 2 units of PRBCs. He is a dialysis patient. The patient really denies any blood in his stools or black tarry stools. He Was vomiting up any blood.The patient was initially admitted to the ICU because of his low hemoglobin. He was given a total of 2 units of packed RBCs. After being stabilized, the patient was moved out of the intensive care unit. He is currently on a medical floor. He is undergoing his routine dialysis which she does typically 3 days a week, Tuesdays, and Saturdays. His chest x- ray shows a chronic and large right-sided pleural effusion and the patient and his are very much aware of that. He is known to have congestion heart failure with an ejection fraction of 25% and he sees Dr. Morton regarding his congestion heart failure. He has no chest pain. He was treated for a respiratory tract infection and he was given several courses of antibiotics over the past few months. He was also treated for cellulitis of the lower extremities. The patient is seen again today 12/15/2016 in follow-up on the regular medical floor. He is awake and alert in no acute distress. He had hemodialysis today and 1.5 L were removed. His chest x-ray reveals overall stable findings of cardiomegaly with central vascular congestion and a moderate size right pleural effusion with bibasilar infiltrate/atelectasis. No significant change from previous. He denies any worsening shortness of breath, cough or congestion. No chills or night sweats. He is maintaining good O2 saturations in the high 90s on 2 L/m per nasal cannula. No significant dyspnea on exertion. Objective - Vital Signs Vital signs: Vital Signs Temp 97.6 F 12/15/16 07:00 Pulse 74 12/15/16 12:19 Resp 18 12/15/16 08:00 BP 97/38 12/15/16 07:00 Pulse Ox 99 12/15/16 08:08 Intake & Output 12/14/16 12/15/16 12/15/16 18:59 06:59 18:59 Intake Total 480 Output Total 0 Balance 480 0 Weight 76 kg Intake: Oral 480 Output: Urine 0 Other: Voiding Method Urinal Urinal Urinal # Voids 1 1 # Bowel Movements 0 - Exam Head exam was generally normal. There was no scleral icterus or corneal arcus. Mucous membranes were moist.Neck was supple and without jugular venous distension, thyromegaly, or carotid bruits. Carotids were easily palpable bilaterally. There was no adenopathy. Lung sounds are diminished in the right lung base along with some dullness to percussion.Cardiac exam revealed the PMI to be normally situated and sized. The rhythm was regular and no extrasystoles were noted during several minutes of auscultation. The first and second heart sounds were normal and physiologic splitting of the second heart sound was noted. There were no murmurs, rubs, clicks, or gallops.Abdominal exam revealed normal bowel sounds. The abdomen was soft, non-tender, and without masses, organomegaly, or appreciable enlargement of the abdominal aorta. Examination of the extremities revealed easily palpable radial, femoral and pedal pulses. There was no cyanosis, clubbing plus 1 edema. - Labs CBC & Chem 7: 12/14/16 08:16 12/15/16 08:00 Labs: Abnormal Lab Results - Last 24 Hours (Table) 12/15/16 Range/Units 08:00 Sodium 135 L (137-145) mmol/L Chloride 97 L (98-107) mmol/L BUN 22 H (9-20) mg/dL Creatinine 3.57 H (0.66-1.25) mg/dL Assessment and Plan Plan: Assessment 1 right-sided pleural effusion, chronic, no signs of an acute pneumonia this point. This is most likely related to congestion heart failure and today's chest x-ray shows a stable right-sided pleural effusion 2 renal failure, end-stage renal disease currently on hemodialysis and the patient has been on dialysis since jun 2016 via permacath in his right chest area 3 profound anemia with interval drop in his hemoglobin status post transfusion with 2 units of packed RBCs. Hemoglobin is stable for now and there is no signs of GI bleeding 4 congestion heart failure with an ejection fraction of 20-25% secondary pulmonary hypertension 5 chronic anemia 6 COPD 7 peripheral vascular disease 8 recurrence unless of the lower extremities 9 history of pacemaker/defibrillator insertion 10 coronary artery disease with previous coronary intervention and stenting and previous bypass surgery. 11 chronic hypotension 12 hyperlipidemia 13 BPH 14 hypothyroidism Plan: The patient was seen and evaluated by Dr. Masters. His chest x-ray was reviewed. The right pleural effusion is most likely chronic in nature and is currently stable. We'll continue with his current medications. Dialysis per nephrology. He could be discharged from the pulmonary standpoint. He is offered a follow-up in our office we can repeat his chest x-ray then. He and his are both encouraged however to call sooner with any recurrence of symptoms or other questions or concerns.
--- NOTE | 2016-12-16 08:17 | DS ---
DATE OF ADMISSION: 12/12/2016 DATE OF DISCHARGE: 12/15/2016 FINAL DIAGNOSES: 1. Acute right hand bleeding secondary to fall. 2. Hypertension from blood loss anemia, present at admission. 3. End-stage kidney disease, on hemodialysis Wednesday, , and Wednesday. 4. Chronic obstructive pulmonary disease in an ex-smoker. 5. AICD, chronic. 6. Hyperlipidemia. 7. Hypothyroidism. 8. Abdominal aortic aneurysm. 9. Benign prostatic hypertrophy. 10. Anemia of chronic disease, probably underlying end-stage kidney disease secondary to. 11. Troponin leak in the setting of renal failure, not significant. HOSPITAL COURSE: This patient presented with hypertension, severe anemia after losing blood from a skin tear after having a fall. Patient did receive 2 units of blood. Hemoglobin at the time of discharge was 8.4 kg. Care was discussed in detail with the patient and . Questions were answered. CONSULTATIONS: 1. Dr. Marie from Nephrology. 2. Dr. Kera Morton from Cardiology. 3. Dr. Hdez from Pulmonary. On examination, lungs decreased breath sounds. CARDIOVASCULAR: First and second seconds normal. DISCHARGE MEDICATIONS: 1. Xanax 0.5 p.o. q.h.s. 2. Ventolin HFA 2 puffs q.i.d. p.r.n. 3. Symbicort 80/4.5 two puffs b.i.d. 4. Vitamin D3 one thousand units p.o. daily. 5. Plavix 75 mg p.o. daily. 6. Synthroid 100 mcg p.o. daily. 7. Cytomel 5 mcg p.o. b.i.d. 8. Men's multivitamin 1 tablet p.o. daily. 9. Prilosec 20 mg at breakfast. 10. Flomax 0.4 mg p.o. daily. 11. Co Q-10 one hundred mg p.o. daily. 12. Velphoro 500 mg a.c. t.i.d. 13. Aspirin 81 mg p.o. daily. 14. Aranesp 40 mcg subQ every 7 days. 15. DuoNeb t.i.d. 16. Melatonin 3 mg p.o. q.h.s. Follow up with Dr. Posada on 12/18/2016. Patient to maintain dialysis, continue schedule. On exam, alert and oriented x3. LUNGS: Decreased breath sounds.
--- NOTE | 2017-01-04 18:30 | DS ---
DATE OF ADMISSION: 12/12/2016 DATE OF DISCHARGE: 12/15/2016 ADDENDUM: CORRECTION: FINAL DIAGNOSES: #2 should Correctly read as: Hypotension from blood loss anemia, present on admission.
== END 2016-12-15 16:13 | disposition home or self-care (01) | DRG 811 ==
LOC: EC 14:44 → 6ICU 21:19 → 4MS4W 12-13 14:11
PROVIDERS: ADMIT Hospitalist; ATTEND Hospitalist
PROC: 30233N1 Transfusion of Nonautologous Red Blood Cells into Peripheral Vein, Percutaneous Approach (ICD-10-PCS; principal; 2016-12-12)
PROC: 5A1D60Z (ICD-10-PCS; 2016-12-14)
DX: D62 Acute posthemorrhagic anemia (principal); N18.6 End stage renal disease; I13.2 Hypertensive heart and chronic kidney disease with heart failure and with stage 5 chronic kidney disease, or end stage renal disease; I95.89 Other hypotension; I27.2 Other secondary pulmonary hypertension; Q60.0 Renal agenesis, unilateral; D63.1 Anemia in chronic kidney disease; J44.9 Chronic obstructive pulmonary disease, unspecified; I71.4 Abdominal aortic aneurysm, without rupture; I25.10 Atherosclerotic heart disease of native coronary artery without angina pectoris; I73.9 Peripheral vascular disease, unspecified; I50.9 Heart failure, unspecified; R74.8 Abnormal levels of other serum enzymes; S61.411A Laceration without foreign body of right hand, initial encounter; E07.81 Sick-euthyroid syndrome; I49.3 Ventricular premature depolarization; I25.5 Ischemic cardiomyopathy; E03.9 Hypothyroidism, unspecified; E78.5 Hyperlipidemia, unspecified; M19.90 Unspecified osteoarthritis, unspecified site; N40.0 Benign prostatic hyperplasia without lower urinary tract symptoms; G47.00 Insomnia, unspecified; F41.9 Anxiety disorder, unspecified; R53.1 Weakness; H91.90 Unspecified hearing loss, unspecified ear; Z88.0 Allergy status to penicillin; Z95.810 Presence of automatic (implantable) cardiac defibrillator; Z99.2 Dependence on renal dialysis; Z87.891 Personal history of nicotine dependence; Z88.8 Allergy status to other drugs, medicaments and biological substances; Z86.19 Personal history of other infectious and parasitic diseases; Z87.09 Personal history of other diseases of the respiratory system; Z79.51 Long term (current) use of inhaled steroids; Z79.899 Other long term (current) drug therapy; Z79.02 Long term (current) use of antithrombotics/antiplatelets; Z95.5 Presence of coronary angioplasty implant and graft; Z95.1 Presence of aortocoronary bypass graft; W19.XXXA Unspecified fall, initial encounter; Y93.9 Activity, unspecified
CPT/HCPCS: 36415; 36430; 71010; 80048; 80053; 82550; 82553; 82607; 82728; 83540; 83550; 83735; 84100; 84439; 84443; 84484; 85025; 85610; 85730; 86850; 86900; 86901; 86920; 87340; 90935; 93005; 93306; 94640; 94760; 99285

== ENCOUNTER 2017-08-11 17:34 | Inpatient (IN) | payer MEDICARE ==
[2017-08-11] MEDS ORDERED: SODIUM CHLORIDE 0.9% 500 ML IV STA (18:03)
[2017-08-11] MEDS ORDERED: methylPREDNISolone SOD SUCCI 125 MG/2 ML VIAL IV STA (18:06)
[2017-08-11] MEDS ORDERED: IPRATROPIUM-ALBUTEROL 3 ML NEB INHALATION STA (18:06)
[2017-08-11 18:31] LABS: Anisocytosis Moderate; Basophils % (A) 1 %; CH 28.4; CHCM 29.7; Eosinophils # (A) 0.1 k/uL (0-0.7); Eosinophils % (A) 4 %; HCT 30.6 % (39.0-53.0); HDW 3.93; HGB 8.8 gm/dL (13.0-17.5); Hypochromasia Marked; Luc # (Auto) 0.17; Luc % (Auto) 4; Lymphocytes # (A) 0.7 k/uL (1.0-4.8); Lymphocytes % (A) 17 %; MCHC 28.9 g/dL (31.0-37.0); Macrocytosis Slight; Mean Platelet Volume 7.4; Monocytes # (A) 0.4 k/uL (0-1.0); Monocytes % (A) 9 %; Neutrophils # (A) 2.7 k/uL (1.3-7.7); Neutrophils % (A) 65 %; Poikilocytosis Slight; RBC 3.16 m/uL (4.30-5.90); RDW 20.8 % (11.5-15.5); VBG PH 7.34 (7.31-7.41); WBC 4.1 k/uL (3.8-10.6); WBC (Perox) 3.83
--- NOTE | 2017-08-11 18:37 | ED ---
Weakness HPI - General Chief complaint: Weakness Stated complaint: Weakness/sob Time Seen by Provider: 08/11/17 17:55 Source: family Mode of arrival: wheelchair Limitations: physical limitation - History of Present Illness Initial comments: 72 years old male with end-stage renal disease on dialysis with a history of coronary artery disease has a pacemaker in place, he had his dialysis done today feeling quite weak his blood pressure was noticed to be 73/30 and oxygen saturation was less than 80. His noticed he was quite shaky quite weak, and ambulate and she also noticed that he was confused his vision was blurred as well. Headaches no neck stiffness no chest pain has a shortness of breath no abdominal pain no frequency urgency dysuria no symptoms of TIA or CVA - Related Data Home Medications Medication Instructions Recorded Confirmed Albuterol Inhaler [Ventolin Hfa 2 puff INHALATION RT-QID PRN 12/12/16 08/11/17 Inhaler] Budesonide/Formoterol Fumarate 2 puff INHALATION RT-BID 12/12/16 08/11/17 [Symbicort 80-4.5 Mcg Inhaler] Clopidogrel Bisulfate [Plavix] 75 mg PO DAILY 12/12/16 08/11/17 Liothyronine Sodium [Cytomel] 5 mcg PO BID 12/12/16 08/11/17 Omeprazole [PriLOSEC] 20 mg PO HS 12/12/16 08/11/17 Midodrine [ProAmatine] 10 mg PO TID 05/29/17 08/11/17 Acetaminophen Tab [Tylenol] 500 mg PO Q6HR PRN 06/26/17 08/11/17 Cyanocobalamin [Vitamin B-12] 500 mcg PO DAILY 06/26/17 08/11/17 Levothyroxine Sodium [Synthroid] 137 mcg PO DAILY 06/26/17 08/11/17 Mirtazapine [Remeron] 15 mg PO HS 06/26/17 08/11/17 Renal Vitamin 1 tab PO HS 06/26/17 08/11/17 ALPRAZolam [Xanax] 0.25 mg PO DAILY PRN 08/11/17 08/11/17 ALPRAZolam [Xanax] 0.5 mg PO HS 08/11/17 08/11/17 Ipratropium-Albuterol Nebulize 3 ml INHALATION RT-QID PRN 08/11/17 08/11/17 [Duoneb 0.5 mg-3 mg/3 ml Soln] Sevelamer [Renvela] 800 mg PO AC-BID 08/11/17 08/11/17 Allergies Allergy/AdvReac Type Severity Reaction Status Date / Time cimetidine Allergy Nausea & Verified 08/11/17 18:35 Vomiting & Diarrhea Penicillins Allergy Rash/Hives Verified 08/11/17 18:35 Review of Systems ROS Statement: Those systems with pertinent positive or pertinent negative responses have been documented in the HPI. ROS Other: All systems not noted in ROS Statement are negative. Past Medical History Past Medical History: Coronary Artery Disease (CAD), Chest Pain / Angina, COPD, Hyperlipidemia, Renal Disease, Thyroid Disorder Additional Past Medical History / Comment(s): ESRD disease on hemodialysis, chronic right-sided pleural effusion, dialysis 3 times a week MWF chronic anemia , CHF with an ejection fraction of 20-25% and secondary pulmonary hypertension, COPD, peripheral vascular disease, recurrent cellulites of the lower extremities , pacemaker defibrillator insertion, coronary artery disease, chronic hypotension, hyperlipidemia, BPH, hypothyroidism History of Any Multi-Drug Resistant Organisms: None Reported Past Surgical History: AICD, Heart Catheterization With Stent Past Anesthesia/Blood Transfusion Reactions: No Reported Reaction Date of Last Stent Placement:: april 2016 Type of Cardiac Device: AICD Device Placement Date:: april 2016 Past Psychological History: No Psychological Hx Reported Smoking Status: Current some day smoker Past Alcohol Use History: None Reported Past Drug Use History: None Reported General Exam - General Exam Comments Initial Comments: General: The patient is awake and alert, looks pale and weak Skin: Skin is warm and dry and no rashes or lesions are noted. Eye: Pupils are equal, round and reactive to light, extra-ocular movements are intact; there is normal conjunctiva bilaterally. Ears, nose, mouth and throat: There are moist mucous membranes and no oral lesions. Neck: The neck is supple, there is no tenderness or JVD. Cardiovascular: There is a regular rate and rhythm. No murmur, rub or gallop is appreciated. Respiratory: To auscultation bilateral, severe COPD and crackles at the bases Gastrointestinal: Soft, non-distended, non-tender abdomen without masses or organomegaly noted. There is no rebound or guarding present. Bowel sounds are unremarkable. Back: There is no tenderness to palpation in the midline. There is no obvious deformity. Musculoskeletal: Normal ROM, no tenderness, There is no pedal edema. There is no calf tenderness or swelling. No cords were appreciated. Neurological: CN II-XII intact, Cranial nerves III through XII are intact. There are no obvious motor or sensory deficits. Coordination appears grossly intact. Speech is normal. Psychiatric: Cooperative, appropriate mood & affect, normal judgment. Limitations: physical limitation Course Vital Signs 08/11/17 08/11/17 08/11/17 17:37 18:11 18:17 Temperature 97.5 F L Pulse Rate 84 84 74 Respiratory 16 18 Rate Blood Pressure 73/30 95/50 O2 Sat by Pulse 78 L 97 Oximetry 08/11/17 08/11/17 08/11/17 18:21 19:02 19:26 Temperature Pulse Rate 84 74 81 Respiratory 16 20 Rate Blood Pressure 93/39 84/46 O2 Sat by Pulse 97 92 L Oximetry EKG Findings - EKG Comments: EKG Findings:: EKG is paced rhythm ventricular rate is 72 QRS duration is 152 QT /QTc is 438/479 Medical Decision Making - Lab Data Result diagrams: 08/11/17 18:16 08/11/17 18:16 Lab Results 08/11/17 08/11/17 08/11/17 Range/Units 18:16 18:16 18:16 WBC 4.1 (3.8-10.6) k/uL RBC 3.16 L (4.30-5.90) m/uL Hgb 8.8 L (13.0-17.5) gm/dL Hct 30.6 L (39.0-53.0) % MCV 97.0 (80.0-100.0) fL MCH 28.0 (25.0-35.0) pg MCHC 28.9 L (31.0-37.0) g/dL RDW 20.8 H (11.5-15.5) % Plt Count 173 (150-450) k/uL Neutrophils % 65 % Lymphocytes % 17 % Monocytes % 9 % Eosinophils % 4 % Basophils % 1 % Neutrophils # 2.7 (1.3-7.7) k/uL Lymphocytes # 0.7 L (1.0-4.8) k/uL Monocytes # 0.4 (0-1.0) k/uL Eosinophils # 0.1 (0-0.7) k/uL Basophils # 0.0 (0-0.2) k/uL Hypochromasia Marked Poikilocytosis Slight Anisocytosis Moderate Macrocytosis Slight PT (9.0-12.0) sec INR (<1.2) APTT (22.0-30.0) sec D-Dimer (<0.60) mg/L FEU VBG pH 7.34 (7.31-7.41) VBG pCO2 55 H (37-51) mmHg VBG HCO3 29 H (24-28) mmol/L Sodium (137-145) mmol/L Potassium (3.5-5.1) mmol/L Chloride (98-107) mmol/L Carbon Dioxide (22-30) mmol/L Anion Gap mmol/L BUN (9-20) mg/dL Creatinine (0.66-1.25) mg/dL Est GFR (MDRD) Af Amer (>60 ml/min/1.73 sqM) Est GFR (MDRD) Non-Af (>60 ml/min/1.73 sqM) Glucose (74-99) mg/dL Plasma Lactic Acid Roderick (0.7-2.0) mmol/L Calcium (8.4-10.2) mg/dL Total Bilirubin (0.2-1.3) mg/dL AST (17-59) U/L ALT (21-72) U/L Alkaline Phosphatase (38-126) U/L Total Creatine Kinase 35 L (55-170) U/L CK-MB (CK-2) 2.7 H* (0.0-2.4) ng/mL CK-MB (CK-2) Rel Index 7.7 Troponin I 0.066 H* (0.000-0.034) ng/mL Total Protein (6.3-8.2) g/dL Albumin (3.5-5.0) g/dL 08/11/17 08/11/17 08/11/17 Range/Units 18:16 18:16 18:16 WBC (3.8-10.6) k/uL RBC (4.30-5.90) m/uL Hgb (13.0-17.5) gm/dL Hct (39.0-53.0) % MCV (80.0-100.0) fL MCH (25.0-35.0) pg MCHC (31.0-37.0) g/dL RDW (11.5-15.5) % Plt Count (150-450) k/uL Neutrophils % % Lymphocytes % % Monocytes % % Eosinophils % % Basophils % % Neutrophils # (1.3-7.7) k/uL Lymphocytes # (1.0-4.8) k/uL Monocytes # (0-1.0) k/uL Eosinophils # (0-0.7) k/uL Basophils # (0-0.2) k/uL Hypochromasia Poikilocytosis Anisocytosis Macrocytosis PT 11.3 (9.0-12.0) sec INR 1.1 (<1.2) APTT 32.8 H (22.0-30.0) sec D-Dimer 3.99 H (<0.60) mg/L FEU VBG pH (7.31-7.41) VBG pCO2 (37-51) mmHg VBG HCO3 (24-28) mmol/L Sodium 134 L (137-145) mmol/L Potassium 3.6 (3.5-5.1) mmol/L Chloride 98 (98-107) mmol/L Carbon Dioxide 27 (22-30) mmol/L Anion Gap 9 mmol/L BUN 9 (9-20) mg/dL Creatinine 1.88 H (0.66-1.25) mg/dL Est GFR (MDRD) Af Amer 43 (>60 ml/min/1.73 sqM) Est GFR (MDRD) Non-Af 36 (>60 ml/min/1.73 sqM) Glucose 58 L (74-99) mg/dL Plasma Lactic Acid Roderick 1.6 (0.7-2.0) mmol/L Calcium 7.8 L (8.4-10.2) mg/dL Total Bilirubin 0.8 (0.2-1.3) mg/dL AST 22 (17-59) U/L ALT 27 (21-72) U/L Alkaline Phosphatase 380 H (38-126) U/L Total Creatine Kinase (55-170) U/L CK-MB (CK-2) (0.0-2.4) ng/mL CK-MB (CK-2) Rel Index Troponin I (0.000-0.034) ng/mL Total Protein 5.7 L (6.3-8.2) g/dL Albumin 2.7 L (3.5-5.0) g/dL Critical Care Time Total Critical Care Time: 60 Critical Care Time: 72 years old male came from dialysis with a blood pressure from 73/30, we gave him some mild fluids we cultured blood and urine and his oxygen saturation was 78 with the oxygen oxygen saturation improved chest x-ray revealed congestive heart failure he also had a confusion that led to a head CT which is normal and d-dimer is quite elevated considering his end-stage renal failure we'll go ahead and do a VQ scan as inpatient and he had a fluid bolus which didn't quite help with his blood pressure we can start him on a norepinephrine he be going to the ICU Dr. Street or has been paged and he be admitted under Dr. Korey dickinson noted his troponin is elevated we will heparinize him and will consult cardiology Disposition Clinical Impression: Hypertension, Myocardial infarction, Congestive heart failure Disposition: ADMITTED IP TO THIS HOSP Condition: Poor Referrals: Jamal Posada DO [Primary Care Provider] - 1-2 days
[2017-08-11 18:44] LABS: INR 1.1 (<1.2); Partial Thromboplastin Time 32.8 sec (22.0-30.0); Prothrombin Time 11.3 sec (9.0-12.0)
[2017-08-11 18:48] LABS: Calcium 7.8 mg/dL (8.4-10.2); Potassium 3.6 mmol/L (3.5-5.1); Total Bilirubin 0.8 mg/dL (0.2-1.3); Total Protein 5.7 g/dL (6.3-8.2)
--- NOTE | 2017-08-11 19:07 | CT ---
EXAMINATION TYPE: CT brain wo con DATE OF EXAM: 08/11/2017 COMPARISON: 06/27/2017 HISTORY: weakness and generalized pain CT DLP: 1184.9 mGycm Automated exposure control for dose reduction was used. FINDINGS: There is cerebral cortical atrophy. There is no mass effect nor midline shift. There is no sign of in tracranial hemorrhage. There is mucosal thickening in the maxillary sinuses. IMPRESSION: CEREBRAL ATROPHY AND CHRONIC SMALL VESSEL ISCHEMIA THERE IS SLIGHTLY WORSE THAN LAST EXAM. THERE IS N EW MILD BILATERAL MAXILLARY SINUSITIS.
--- NOTE | 2017-08-11 19:09 | XR ---
EXAMINATION TYPE: XR chest 2V DATE OF EXAM: 08/11/2017 COMPARISON: 07/05/2017 HISTORY: Weakness TECHNIQUE: Frontal and lateral views of the chest are obtained. FINDINGS: There is pulmonary edema. There is blunting of costophrenic angles and much more on the ri ght side. Thoracic aorta is atheromatous. There is a dual-lumen right central venous catheter with th e tip over the right atrium. There are chest leads. There is left axillary pacemaker with the lead ti p in the right ventricle. IMPRESSION: Congestive heart failure with pulmonary edema and bilateral pleural effusions. No signif icant change compared to last exam.
[2017-08-11 19:18] LABS: Creatine Kinase MB 2.7 ng/mL (0.0-2.4); Troponin I 0.066 ng/mL (0.000-0.034)
[2017-08-11] MEDS ORDERED: NOREPINEPHRIN 4 MG-0.9% NS PMX 4 MG/250 ML ML IV ONE (20:18)
[2017-08-11] MEDS ORDERED: NALOXONE 0.4 MG/ML 1 ML VIAL IV PRN (20:23)
[2017-08-11] MEDS ORDERED: ACETAMINOPHEN TAB 325 MG TAB PO PRN (20:23)
[2017-08-11] MEDS ORDERED: MORPHINE SULFATE 10 MG/ML SYRINGE IV PRN (20:23)
[2017-08-11] MEDS ORDERED: ALBUTEROL INHALER 60 PUFF/8 GM INHALER INHALATION PRN (20:36)
[2017-08-11] MEDS ORDERED: VANCOMYCIN 1,250 MG in SODIUM CHLORIDE 0.9% 250 ML IVPB STA (20:36)
[2017-08-11] MEDS ORDERED: ACETAMINOPHEN TAB 500 MG TAB PO PRN (20:36)
[2017-08-11] MEDS ORDERED: ALPRAZolam 0.25 MG TAB PO PRN (20:36)
[2017-08-11] MEDS ORDERED: cefTRIAXone IN SWFI 2,000 MG/20 ML SYRINGE IVP STA (20:38)
[2017-08-11] MEDS ORDERED: VANCOMYCIN IV PER PHARMACY 1 EACH MISC MISCELLANE ONE (20:45)
--- NOTE | 2017-08-11 22:16 | NM ---
EXAMINATION TYPE: NM pul vent and perfuse DATE OF EXAM: 08/11/2017 COMPARISON: NONE HISTORY: TECHNIQUE: Utilizing inhalation of 67.8 mCi Tc 99m DTPA aerosol and intravenous injection of 5.34 mC i of Tc 99m MAA, ventilation and perfusion images are acquired post injection in multiple projections . FINDINGS: There is a large area of decreased ventilation and perfusion involving the right lung. There is a lar ge right pleural effusion on the chest x-ray today. There is a matched defect at the left lung base r elated to left pleural effusion. I see no ventilation/perfusion mismatch. Perfusion of the lungs is b beverley than the ventilation. IMPRESSION: Large matched defects consistent with an intermediate probability of pulmonary embolism.
[2017-08-11] MEDS ORDERED: HEPARIN SODIUM,PORCINE 10,000 UNIT/ML 1 ML VIAL IV ONE (23:30)
[2017-08-11] MEDS ORDERED: HEPARIN SODIUM,PORCINE 5,000 UNIT/ML 1 ML VIAL IV PRN (23:30)
[2017-08-11] MEDS ORDERED: HEPARIN SODIUM,PORCINE/D5W PMX 25,000 UNIT in DEXTROSE/WATER 1 500ML.BAG IV SCH (23:30)
[2017-08-11] MEDS ORDERED: HEPARIN SODIUM,PORCINE 5,000 UNIT/ML 1 ML VIAL IV ONE (23:45)
[2017-08-12 00:38] LABS: Glucose,Whole Blood 87 mg/dL (75-99)
[2017-08-12] MEDS: LIOTHYRONINE SODIUM 5 MCG TAB PO SCH ×3 (02:34→20:46)
[2017-08-12] MEDS: ALPRAZolam 0.5 MG TAB PO SCH ×2 (02:34→20:46)
[2017-08-12] MEDS: FOLIC ACID-VIT B COMPLEX-VIT C 1 CAP PO SCH ×2 (02:34→20:46)
[2017-08-12] MEDS: MIRTAZAPINE 15 MG TAB PO SCH ×2 (02:35→20:46)
[2017-08-12] MEDS: PANTOPRAZOLE 40 MG TABLET PO SCH ×2 (02:35→20:46)
[2017-08-12] MEDS: SODIUM CHLORIDE 0.9% 500 ML IV SCH (02:51)
[2017-08-12 03:13] LABS: Anisocytosis Moderate; CH 27.1; CHCM 28.6; HCT 31.8 % (39.0-53.0); HDW 3.83; HGB 9.2 gm/dL (13.0-17.5); Hypochromasia Marked; MCH 27.9 pg (25.0-35.0); MCV 96.2 fL (80.0-100.0); Macrocytosis Slight; Mean Platelet Volume 7.3; Poikilocytosis Slight; RBC 3.31 m/uL (4.30-5.90); RDW 21.9 % (11.5-15.5); WBC 4.5 k/uL (3.8-10.6)
[2017-08-12 03:33] LABS: Calcium 8.4 mg/dL (8.4-10.2); Magnesium 1.9 mg/dL (1.6-2.3); Phosphorus 4.3 mg/dL (2.5-4.5); Potassium 4.1 mmol/L (3.5-5.1)
[2017-08-12] MEDS: LEVOTHYROXINE 137 MCG TAB PO SCH (06:47)
--- NOTE | 2017-08-12 07:07 | XR ---
EXAMINATION TYPE: XR chest 1V DATE OF EXAM: 08/12/2017 CLINICAL HISTORY: Difficulty breathing progress study. TECHNIQUE: Single AP portable upright view of the chest is obtained. COMPARISON: Chest x-ray from one day earlier and older studies. FINDINGS: There is stable large bore right internal jugular dialysis catheter with tip felt to be in IVC. There is persistent mild cardiomegaly with dual lead pacemaker/AICD and atherosclerotic thoraci c aorta. There is moderate size right pleural effusion and small size left pleural effusion with asso ciated compressive atelectasis and/or infiltrates. There is central vascular congestion which is slig htly improved. Osseous structures are intact. Atherosclerotic aorta is noted. IMPRESSION: There is persistent cardiomegaly with moderate size right and small size left pleural eff usions and associated bibasilar atelectasis and/or infiltrate felt stable. Improving but still persis tent mild to moderate central vascular congestion however is felt present.
[2017-08-12] MEDS: SYMBICORT 80-4.5 MCG INHALER INHALATION SCH ×2 (07:51→20:01)
[2017-08-12] MEDS: IPRATROPIUM-ALBUTEROL 3 ML NEB INHALATION PRN ×2 (07:51→15:07)
[2017-08-12] MEDS: MIDODRINE 5 MG TAB PO SCH ×3 (08:47→17:33)
[2017-08-12] MEDS: SEVELAMER 800 MG TAB PO SCH ×2 (08:48→17:32)
[2017-08-12] MEDS: HEPARIN SODIUM,PORCINE 5,000 UNIT/ML 1 ML VIAL SQ SCH ×2 (08:49→17:32)
[2017-08-12] MEDS ORDERED: VANCOMYCIN 1,250 MG in SODIUM CHLORIDE 0.9% 250 ML IVPB ONE (09:00)
[2017-08-12] MEDS ORDERED: CLOPIDOGREL 75 MG TAB PO SCH (09:00)
[2017-08-12] MEDS ORDERED: NOREPINEPHRIN 16 MG-0.9%NS PMX 16 MG/250 ML ML IV SCH (09:30)
[2017-08-12] MEDS ORDERED: DARBEPOETIN ALFA 40 MCG/0.4 ML SYRINGE SQ SCH (11:00)
--- NOTE | 2017-08-12 11:02 | P.NPCON ---
History of Present Illness - Reason for Consult end stage renal disease - History of Present Illness Reason for consultation: End-stage renal disease History of present illness: Patient is a 72-year-old male seen in renal consultation for end-stage renal disease. He is maintained on hemodialysis on a Wednesday schedule via permacath. Patient states he underwent dialysis yesterday. Patient states that since Wednesday he's been feeling progressively weaker. He initially refused to go to the hospital but when he went home after dialysis yesterday he felt quite shaky and had blurry vision as well. He was subsequently taken to the hospital. He was noted to be quite hypotensive with systolic blood pressure in the 70s to 80s. He was started on levo fed and is currently on 4 mics. Patient does have systolic CHF with ejection fraction of 20-25% with moderate pulmonary hypertension and his blood pressure tends to run low in the systolic 80s to 90s as an outpatient. He denies any vomiting or diarrhea. Denies chest pain. He denies excessive salt intake. He does not drink excess amounts of fluids. He does have pleural effusions and underwent bilateral thoracentesis during his last hospitalization in June 2017. He then went to an ECF and had developed pneumonia for which she completed antibiotics about 5 days ago. Denies any cough. No fever or chills at this time. Vital signs are stable. General: The patient appeared well nourished and normally developed. HEENT: Head exam is unremarkable. Neck is without jugular venous distension. LUNGS: Lungs are clear to auscultation and percussion. Breath sounds decreased. HEART: Rate and Rhythm are regular. First and second heart sounds normal. No murmurs, rubs or gallops. ABDOMEN: Abdominal exam reveals normal bowel sounds. Non-tender and non- distended. No evidence of peritonitis. EXTREMITITES: 1+ edema. Past Medical History Past Medical History: Coronary Artery Disease (CAD), Chest Pain / Angina, Heart Failure, COPD, Renal Disease, Thyroid Disorder Additional Past Medical History / Comment(s): ESRD disease on hemodialysis, chronic right-sided pleural effusion, dialysis 3 times a week MWF chronic anemia , CHF with an ejection fraction of 20-25% and secondary pulmonary hypertension, COPD, peripheral vascular disease, recurrent cellulites of the lower extremities , pacemaker, defibrillator insertion, coronary artery disease, chronic hypotension, hyperlipidemia, BPH, hypothyroidism History of Any Multi-Drug Resistant Organisms: None Reported Past Surgical History: AICD, Heart Catheterization With Stent, Pacemaker Past Anesthesia/Blood Transfusion Reactions: No Reported Reaction Date of Last Stent Placement:: april 2016 Type of Cardiac Device: AICD Device Placement Date:: april 2016 Past Psychological History: Anxiety, Depression Smoking Status: Former smoker Past Alcohol Use History: Heavy Additional Past Alcohol Use History / Comment(s): Past heavy drinking; quit 2014. Past Drug Use History: None Reported - Past Family History Mother Family Medical History: Diabetes Mellitus, Hypertension, Myocardial Infarction ( [place]) Father Family Medical History: Diabetes Mellitus, Hypertension, Myocardial Infarction ( [place]) Brother(s) Family Medical History: Hypertension Medications and Allergies Home Medications Medication Instructions Recorded Confirmed Type Albuterol Inhaler [Ventolin Hfa 2 puff INHALATION RT-QID PRN 12/12/16 08/11/17 History Inhaler] Budesonide/Formoterol Fumarate 2 puff INHALATION RT-BID 12/12/16 08/11/17 History [Symbicort 80-4.5 Mcg Inhaler] Clopidogrel Bisulfate [Plavix] 75 mg PO DAILY 12/12/16 08/11/17 History Liothyronine Sodium [Cytomel] 5 mcg PO BID 12/12/16 08/11/17 History Omeprazole [PriLOSEC] 20 mg PO HS 12/12/16 08/11/17 History Midodrine [ProAmatine] 10 mg PO TID 05/29/17 08/11/17 History Acetaminophen Tab [Tylenol] 500 mg PO Q6HR PRN 06/26/17 08/11/17 History Cyanocobalamin [Vitamin B-12] 500 mcg PO DAILY 06/26/17 08/11/17 History Levothyroxine Sodium [Synthroid] 137 mcg PO DAILY 06/26/17 08/11/17 History Mirtazapine [Remeron] 15 mg PO HS 06/26/17 08/11/17 History Renal Vitamin 1 tab PO HS 06/26/17 08/11/17 History ALPRAZolam [Xanax] 0.25 mg PO DAILY PRN 08/11/17 08/11/17 History ALPRAZolam [Xanax] 0.5 mg PO HS 08/11/17 08/11/17 History Ipratropium-Albuterol Nebulize 3 ml INHALATION RT-QID PRN 08/11/17 08/11/17 History [Duoneb 0.5 mg-3 mg/3 ml Soln] Sevelamer [Renvela] 800 mg PO AC-BID 08/11/17 08/11/17 History Allergies Allergy/AdvReac Type Severity Reaction Status Date / Time cimetidine Allergy Nausea & Verified 08/11/17 18:35 Vomiting & Diarrhea Penicillins Allergy Rash/Hives Verified 08/11/17 18:35 Physical Exam Vitals: Vital Signs Temp Pulse Resp BP Pulse Ox 08/12/17 08:01 65 08/12/17 07:51 85 08/12/17 07:00 90 20 83/52 99 08/12/17 06:00 84 20 95/53 99 08/12/17 05:00 92 20 95/52 99 08/12/17 04:00 98.5 F 91 20 94/50 96 08/12/17 03:00 89 22 95/53 94 L 08/12/17 02:00 85 20 82/47 92 L 08/12/17 01:38 98.1 F 08/12/17 01:00 86 18 90/50 84 L 08/12/17 00:25 98.1 F 79 20 77/44 90 L 08/12/17 00:00 81 20 90/52 97 08/11/17 23:00 77 18 92/55 97 08/11/17 22:00 80 20 96/52 98 08/11/17 21:40 79 18 101/55 84 L 08/11/17 21:00 68 18 95/53 93 L 08/11/17 20:44 67 18 84/50 94 L 08/11/17 19:26 81 20 84/46 92 L 08/11/17 19:02 74 16 93/39 97 08/11/17 18:21 84 08/11/17 18:17 74 18 95/50 97 08/11/17 18:11 84 08/11/17 17:37 97.5 F L 84 16 73/30 78 L Intake and Output 08/11/17 08/12/17 08/12/17 22:59 06:59 14:59 Intake Total 120 40 Output Total 0 0 Balance 120 40 Intake: IV 120 40 Sodium Chloride 0.9% 500 120 40 ml @ 20 mls/hr IV .Q24H [facility] Rx#:[id number] Output: Urine 0 0 Other: Weight 73.028 kg 72.9 kg 72.9 kg Patient Weight 08/13/17 06:59 Weight 72.9 kg Results - Lab Results Most recent lab results Calcium 8.4 mg/dL (8.4-10.2) 08/12/17 02:54 Phosphorus 4.3 mg/dL (2.5-4.5) 08/12/17 02:54 Magnesium 1.9 mg/dL (1.6-2.3) 08/12/17 02:54 08/12/17 02:54 08/12/17 02:54 Assessment and Plan Plan: Assessment: #1. End-stage renal disease maintained on hemodialysis on a Wednesday schedule via right chest permacath. Patient was not cleared by cardiology to undergo AV fistula surgery. #2. Systolic CHF with ejection fraction of 20-25% with moderate pulmonary hypertension. #3. Chronic hypotension maintained on midodrine due to underlying cardiac status. Currently also on vasopressors. #4. Volume overload. #5. Anemia of chronic kidney disease. Rule out iron deficiency. #6. Chronic kidney disease mineral bone disease maintained on Renvela. Plan: Hemodialysis tomorrow with goal 3-4 L ultrafiltration. Will use cool dialysate. Maintain midodrine 10 mg 3 times daily. Wean levofed. Check iron studies. Start Aranesp. Low-salt and 1500 mL fluid restricted diet. Chest ultrasound today to further characterize the pleural effusions. May require thoracentesis. Thank you for the consultation. I will continue to follow the patient with you during his hospital stay.
--- NOTE | 2017-08-12 11:51 | P.CRDCN ---
History of Present Illness Consult date: 08/12/17 Chief complaint: Weakness History of present illness: This is a pleasant 72-year-old gentleman who sees Dr. Escobedo in the office as an outpatient with an extensive past medical history consistent off coronary artery disease and prior coronary revascularization, severe ischemic cardiomyopathy and status post ICD, end stage renal disease on hemodialysis, chronic persistent atrial fibrillation not on any anticoagulation, was brought to the hospital by his after dialysis yesterday. The patient just was admitted to the hospital a few weeks ago after he was found unconscious at his bed by his . At that point he was intubated and then he was extubated and discharged in stable medical condition. This time the patient was in his usual state of health until yesterday when he had dialysis and 3 L of fluid were taken out on subsequently the patient was feeling weak and shaky and unable to stand up as usual. He did not lose his consciousness. No dizziness or lightheadedness and no syncope. No chest pain or chest discomfort. The blood pressure was found to be low in the 70s and 80s but the patient's blood pressure normally runs in the 80s systolic. The patient was admitted to the hospital and he was started on Levophed to support the blood pressure. Beside that he is on midodrine. The EKG showed ventricular paced rhythm with baseline atrial fibrillation. The cardiac enzymes are slightly elevated but the patient did not have any chest pain or chest discomfort. The chest x-ray showed bilateral pleural effusion and pulmonary vascular congestion. He is going to have dialysis tomorrow. Past Medical History Past Medical History: Coronary Artery Disease (CAD), Chest Pain / Angina, Heart Failure, COPD, Renal Disease, Thyroid Disorder Additional Past Medical History / Comment(s): ESRD disease on hemodialysis, chronic right-sided pleural effusion, dialysis 3 times a week MWF chronic anemia , CHF with an ejection fraction of 20-25% and secondary pulmonary hypertension, COPD, peripheral vascular disease, recurrent cellulites of the lower extremities , pacemaker, defibrillator insertion, coronary artery disease, chronic hypotension, hyperlipidemia, BPH, hypothyroidism History of Any Multi-Drug Resistant Organisms: None Reported Past Surgical History: AICD, Heart Catheterization With Stent, Pacemaker Past Anesthesia/Blood Transfusion Reactions: No Reported Reaction Date of Last Stent Placement:: april 2016 Type of Cardiac Device: AICD Device Placement Date:: april 2016 Past Psychological History: Anxiety, Depression Smoking Status: Former smoker Past Alcohol Use History: Heavy Additional Past Alcohol Use History / Comment(s): Past heavy drinking; quit 2014. Past Drug Use History: None Reported - Past Family History Mother Family Medical History: Diabetes Mellitus, Hypertension, Myocardial Infarction ( [place]) Father Family Medical History: Diabetes Mellitus, Hypertension, Myocardial Infarction ( [place]) Brother(s) Family Medical History: Hypertension Medications and Allergies Home Medications Medication Instructions Recorded Confirmed Type Albuterol Inhaler [Ventolin Hfa 2 puff INHALATION RT-QID PRN 12/12/16 08/11/17 History Inhaler] Budesonide/Formoterol Fumarate 2 puff INHALATION RT-BID 12/12/16 08/11/17 History [Symbicort 80-4.5 Mcg Inhaler] Clopidogrel Bisulfate [Plavix] 75 mg PO DAILY 12/12/16 08/11/17 History Liothyronine Sodium [Cytomel] 5 mcg PO BID 12/12/16 08/11/17 History Omeprazole [PriLOSEC] 20 mg PO HS 12/12/16 08/11/17 History Midodrine [ProAmatine] 10 mg PO TID 05/29/17 08/11/17 History Acetaminophen Tab [Tylenol] 500 mg PO Q6HR PRN 06/26/17 08/11/17 History Cyanocobalamin [Vitamin B-12] 500 mcg PO DAILY 06/26/17 08/11/17 History Levothyroxine Sodium [Synthroid] 137 mcg PO DAILY 06/26/17 08/11/17 History Mirtazapine [Remeron] 15 mg PO HS 06/26/17 08/11/17 History Renal Vitamin 1 tab PO HS 06/26/17 08/11/17 History ALPRAZolam [Xanax] 0.25 mg PO DAILY PRN 08/11/17 08/11/17 History ALPRAZolam [Xanax] 0.5 mg PO HS 08/11/17 08/11/17 History Ipratropium-Albuterol Nebulize 3 ml INHALATION RT-QID PRN 08/11/17 08/11/17 History [Duoneb 0.5 mg-3 mg/3 ml Soln] Sevelamer [Renvela] 800 mg PO AC-BID 08/11/17 08/11/17 History Allergies Allergy/AdvReac Type Severity Reaction Status Date / Time cimetidine Allergy Nausea & Verified 08/11/17 18:35 Vomiting & Diarrhea Penicillins Allergy Rash/Hives Verified 08/11/17 18:35 Physical Exam Vitals: Vital Signs Temp Pulse Resp BP Pulse Ox 08/12/17 11:00 79 32 H 86/52 98 08/12/17 10:00 94 22 97/57 96 08/12/17 09:00 89 85 H 94/55 95 08/12/17 08:01 65 08/12/17 08:00 97.9 F 89 61 H 105/62 98 08/12/17 07:51 85 08/12/17 07:00 90 20 83/52 99 08/12/17 06:00 84 20 95/53 99 08/12/17 05:00 92 20 95/52 99 08/12/17 04:00 98.5 F 91 20 94/50 96 08/12/17 03:00 89 22 95/53 94 L 08/12/17 02:00 85 20 82/47 92 L 08/12/17 01:38 98.1 F 08/12/17 01:00 86 18 90/50 84 L 08/12/17 00:25 98.1 F 79 20 77/44 90 L 08/12/17 00:00 81 20 90/52 97 08/11/17 23:00 77 18 92/55 97 08/11/17 22:00 80 20 96/52 98 08/11/17 21:40 79 18 101/55 84 L 08/11/17 21:00 68 18 95/53 93 L 08/11/17 20:44 67 18 84/50 94 L 08/11/17 19:26 81 20 84/46 92 L 08/11/17 19:02 74 16 93/39 97 08/11/17 18:21 84 08/11/17 18:17 74 18 95/50 97 08/11/17 18:11 84 08/11/17 17:37 97.5 F L 84 16 73/30 78 L Intake and Output 08/11/17 08/12/17 08/12/17 22:59 06:59 14:59 Intake Total 120 350 Output Total 0 0 Balance 120 350 Intake: IV 120 350 Sodium Chloride 0.9% 500 120 100 ml @ 20 mls/hr IV .Q24H [facility] Rx#:[id number] Vancomycin 1,250 mg In 250 Sodium Chloride 0.9% 250 ml @ 125 mls/hr IVPB ONCE ONE Rx#:[id number] Output: Urine 0 0 Other: Weight 73.028 kg 72.9 kg 72.9 kg Patient Weight 08/13/17 06:59 Weight 72.9 kg - Constitutional General appearance: no acute distress - Respiratory Respiratory: bilateral: diminished - Cardiovascular Rhythm: regular Heart sounds: normal: S1, S2 Abnormal Heart Sounds: systolic murmur Results 08/12/17 02:54 08/12/17 02:54 Cardiac Enzymes 08/11/17 08/11/17 Range/Units 18:16 18:16 AST 22 (17-59) U/L CK-MB (CK-2) 2.7 H* (0.0-2.4) ng/mL Troponin I 0.066 H* (0.000-0.034) ng/mL Coagulation 08/11/17 08/12/17 Range/Units 18:16 02:54 PT 11.3 (9.0-12.0) sec APTT 32.8 H 78.0 H (22.0-30.0) sec CBC 08/11/17 08/12/17 Range/Units 18:16 02:54 WBC 4.1 4.5 (3.8-10.6) k/uL RBC 3.16 L 3.31 L (4.30-5.90) m/uL Hgb 8.8 L 9.2 L (13.0-17.5) gm/dL Hct 30.6 L 31.8 L (39.0-53.0) % Plt Count 173 179 (150-450) k/uL Comprehensive Metabolic Panel 08/11/17 08/12/17 Range/Units 18:16 02:54 Sodium 134 L 134 L (137-145) mmol/L Potassium 3.6 4.1 (3.5-5.1) mmol/L Chloride 98 98 (98-107) mmol/L Carbon Dioxide 27 25 (22-30) mmol/L BUN 9 15 (9-20) mg/dL Creatinine 1.88 H 2.30 H (0.66-1.25) mg/dL Glucose 58 L 109 H (74-99) mg/dL Calcium 7.8 L 8.4 (8.4-10.2) mg/dL AST 22 (17-59) U/L ALT 27 (21-72) U/L Alkaline Phosphatase 380 H (38-126) U/L Total Protein 5.7 L (6.3-8.2) g/dL Albumin 2.7 L (3.5-5.0) g/dL Current Medications Generic Name Dose Route Start Last Admin Trade Name Freq PRN Reason Stop Dose Admin Acetaminophen 500 mg 08/11/17 20:36 Tylenol Tab PO Q6HR PRN Pain Albuterol/Ipratropium 3 ml 08/11/17 20:36 08/12/17 07:51 Duoneb 0.5 Mg-3 Mg/3 Ml Soln INHALATION 3 ml RT-QID PRN Administration Shortness Of Breath Alprazolam 0.25 mg 08/11/17 20:36 Xanax PO DAILY PRN Anxiety Alprazolam 0.5 mg 08/11/17 21:00 08/12/17 02:34 Xanax PO Not Given HS [facility] Budesonide/Formoterol Fumarate 2 puff 08/12/17 08:00 08/12/17 07:51 Symbicort 80-4.5 Mcg Inhaler INHALATION 2 puff RT-BID [facility] Administration Clopidogrel Bisulfate 75 mg 08/12/17 09:00 08/12/17 08:58 Plavix PO 75 mg DAILY [facility] Administration Cyanocobalamin 500 mcg 08/12/17 12:00 Vitamin B-12 PO 1200 [facility] Darbepoetin Xander 40 mcg 08/12/17 11:00 Aranesp SQ Q7D [facility] Heparin Sodium (Porcine) 5,000 unit 08/12/17 08:00 08/12/17 08:49 Heparin SQ 5,000 unit Q8HR [facility] Administration Sodium Chloride 500 mls @ 20 mls/hr 08/11/17 23:45 08/12/17 02:51 Saline 0.9% IV Not Given .Q24H [facility] Norepinephrine Bitartrate 16 mg in 250 mls @ 0 mls/hr 08/12/17 09:30 10:27 Levophed-0.9% Nacl 16 Mg/250ml Pmx IV 3 mcg/min .Q0M [facility] 2.813 mls/hr Protocol Administration Titrate Levothyroxine Sodium 137 mcg 08/12/17 06:30 08/12/17 06:47 Synthroid PO 137 mcg 0630 [facility] Administration Liothyronine Sodium 5 mcg 08/11/17 21:00 08/12/17 08:59 Cytomel PO 5 mcg BID [facility] Administration Midodrine 10 mg 08/12/17 07:30 08/12/17 08:47 Proamatine PO 10 mg AC-TID [facility] Administration Mirtazapine 15 mg 08/11/17 21:00 08/12/17 02:35 Remeron PO Not Given HS [facility] Morphine Sulfate 2 mg 08/11/17 20:23 Morphine Sulfate (Inj) IV Q2HR PRN Pain Scale 4 to 5 Multivit/Ca Carb/B Cmplx/FA/Prenat 1 each 08/11/17 21:00 08/12/17 02:34 Nephrocaps PO Not Given HS [facility] Naloxone HCl 0.2 mg 08/11/17 20:23 Narcan IV Q2M PRN Opioid Reversal Pantoprazole Sodium 40 mg 08/11/17 21:00 08/12/17 02:35 Protonix PO Not Given HS [facility] Sevelamer Carbonate 800 mg 08/12/17 07:30 08/12/17 08:48 Renvela PO Not Given AC-BID [facility] Intake and Output 08/11/17 08/12/17 08/12/17 22:59 06:59 14:59 Intake Total 120 350 Output Total 0 0 Balance 120 350 Intake: IV 120 350 Sodium Chloride 0.9% 500 120 100 ml @ 20 mls/hr IV .Q24H [facility] Rx#:[id number] Vancomycin 1,250 mg In 250 Sodium Chloride 0.9% 250 ml @ 125 mls/hr IVPB ONCE ONE Rx#:[id number] Output: Urine 0 0 Other: Weight 73.028 kg 72.9 kg 72.9 kg Patient Weight 08/13/17 06:59 Weight 72.9 kg 08/12/17 02:54 08/12/17 02:54 Assessment and Plan Assessment: This is a 72-year-old gentleman with extensive cardiac history as described above was brought to the hospital by his with generalized weakness and fatigue. Currently the patient is hypotensive and requires vasopressors. We will try to wean him from the Levophed. He is on midodrine 10 mg by mouth 3 times a day which quite high dose. The patient lives with a systolic blood pressure in the 80s. He is asymptomatic from a cardiovascular standpoint of view. I am not concerned about the mildly abnormal cardiac enzymes which is likely secondary to stage renal disease as well as cardiomyopathy. Anyway, the patient is not a candidate for any invasive cardiac workup because he is very frail and has multiple comorbidities. He is on Plavix which we will continue. Thank you for allowing us participate in his care and we'll continue following up with him.
--- NOTE | 2017-08-12 11:59 | US ---
EXAMINATION TYPE: US chest DATE OF EXAM: 08/12/2017 COMPARISON: Chest x-ray from earlier today CLINICAL HISTORY: rt pleural effusion. Right pleural effusion, exam done portable EXAM MEASUREMENTS: Right Pleural Effusion fluid pocket: 7.8 cm Right skin to fluid thickness: 2.5 cm Right side MARKED for possible thoracentesis outside the dept. Pulmonologists are able to review the images in the patient?s EMR. Moderate to large size right pleural effusion is confirmed on 3 images saved as suspected on recent c hest x-ray. IMPRESSIONS: As above
[2017-08-12 12:02] LABS: Glucose,Whole Blood 160 mg/dL (75-99)
[2017-08-12] MEDS: CYANOCOBALAMIN 500 MCG TAB PO SCH (12:19)
--- NOTE | 2017-08-12 14:30 | P.CNPUL ---
History of Present Illness Consult date: 08/12/17 Requesting physician: Cameron Traylor Reason for consult: pleural effusion Chief complaint: Weakness History of present illness: This is a 72-year-old white male with history of multiple medical problems including end-stage renal disease, on hemodialysis, severe ischemic cardiomyopathy and previous ICD placement, history of chronic right-sided pleural effusion, history of chronic atrial fibrillation, history of coronary artery disease and previous coronary revascularization, patient was recently discharged from [facility] on 07/07/2017, and at that time I saw the patient for pleural effusion were and I performed thoracentesis and 1500 mL of fluid were drained. Patient's last dialysis was yesterday, since Wednesday the patient has been progressively weaker. Refused to go to the hospital but when he went home after dialysis yesterday, he felt quite shaky, had some blurred vision, and was generally weak. Brought into the hospital were in he was found to be hypotensive systolic blood pressure was in the low 70s and 80s. Patient was placed on levo fed, however by the time I evaluated the patient in the ICU, he was off norepinephrine. Patient is known to have history of severe LV dysfunction and ejection fraction is 20-25%. His also known to have history of moderate pulmonary hypertension. At any rate considering his chest x-ray is showing pulmonary edema and right-sided pleural effusion, I was asked to see him on consultation. Ultrasound of the chest clearly showed is 7.8 cm pocket of fluid in the right pleural space, and I would likely consider holding anticoagulation therapy, and I will arrange for thoracentesis. Review of Systems 14 point review of systems were obtained, please refer to pertinent positives in the HPI, otherwise remaining systems are negative. Past Medical History Past Medical History: Coronary Artery Disease (CAD), Chest Pain / Angina, Heart Failure, COPD, Renal Disease, Thyroid Disorder Additional Past Medical History / Comment(s): ESRD disease on hemodialysis, chronic right-sided pleural effusion, dialysis 3 times a week MWF chronic anemia , CHF with an ejection fraction of 20-25% and secondary pulmonary hypertension, COPD, peripheral vascular disease, recurrent cellulites of the lower extremities , pacemaker, defibrillator insertion, coronary artery disease, chronic hypotension, hyperlipidemia, BPH, hypothyroidism History of Any Multi-Drug Resistant Organisms: None Reported Past Surgical History: AICD, Heart Catheterization With Stent, Pacemaker Past Anesthesia/Blood Transfusion Reactions: No Reported Reaction Date of Last Stent Placement:: april 2016 Type of Cardiac Device: AICD Device Placement Date:: april 2016 Past Psychological History: Anxiety, Depression Smoking Status: Former smoker Past Alcohol Use History: Heavy Additional Past Alcohol Use History / Comment(s): Past heavy drinking; quit 2014. Past Drug Use History: None Reported - Past Family History Mother Family Medical History: Diabetes Mellitus, Hypertension, Myocardial Infarction ( [place]) Father Family Medical History: Diabetes Mellitus, Hypertension, Myocardial Infarction ( [place]) Brother(s) Family Medical History: Hypertension Medications and Allergies Home Medications Medication Instructions Recorded Confirmed Type Albuterol Inhaler [Ventolin Hfa 2 puff INHALATION RT-QID PRN 12/12/16 08/11/17 History Inhaler] Budesonide/Formoterol Fumarate 2 puff INHALATION RT-BID 12/12/16 08/11/17 History [Symbicort 80-4.5 Mcg Inhaler] Clopidogrel Bisulfate [Plavix] 75 mg PO DAILY 12/12/16 08/11/17 History Liothyronine Sodium [Cytomel] 5 mcg PO BID 12/12/16 08/11/17 History Omeprazole [PriLOSEC] 20 mg PO HS 12/12/16 08/11/17 History Midodrine [ProAmatine] 10 mg PO TID 05/29/17 08/11/17 History Acetaminophen Tab [Tylenol] 500 mg PO Q6HR PRN 06/26/17 08/11/17 History Cyanocobalamin [Vitamin B-12] 500 mcg PO DAILY 06/26/17 08/11/17 History Levothyroxine Sodium [Synthroid] 137 mcg PO DAILY 06/26/17 08/11/17 History Mirtazapine [Remeron] 15 mg PO HS 06/26/17 08/11/17 History Renal Vitamin 1 tab PO HS 06/26/17 08/11/17 History ALPRAZolam [Xanax] 0.25 mg PO DAILY PRN 08/11/17 08/11/17 History ALPRAZolam [Xanax] 0.5 mg PO HS 08/11/17 08/11/17 History Ipratropium-Albuterol Nebulize 3 ml INHALATION RT-QID PRN 11/08/17 11/08/17 History [Duoneb 0.5 mg-3 mg/3 ml Soln] Sevelamer [Renvela] 800 mg PO AC-BID 08/11/17 08/11/17 History Allergies Allergy/AdvReac Type Severity Reaction Status Date / Time cimetidine Allergy Nausea & Verified 08/11/17 18:35 Vomiting & Diarrhea Penicillins Allergy Rash/Hives Verified 08/11/17 18:35 Physical Exam Vitals: Vital Signs Temp Pulse Resp BP Pulse Ox 08/12/17 14:00 71 18 98/59 98 08/12/17 13:00 88 63 H 86/48 99 08/12/17 12:00 96.9 F L 83 16 85/46 98 08/12/17 11:00 79 32 H 86/52 98 08/12/17 10:00 94 22 97/57 96 08/12/17 09:00 89 85 H 94/55 95 08/12/17 08:01 65 08/12/17 08:00 97.9 F 89 61 H 105/62 98 08/12/17 07:51 85 08/12/17 07:00 90 20 83/52 99 08/12/17 06:00 84 20 95/53 99 08/12/17 05:00 92 20 95/52 99 08/12/17 04:00 98.5 F 91 20 94/50 96 08/12/17 03:00 89 22 95/53 94 L 08/12/17 02:00 85 20 82/47 92 L 08/12/17 01:38 98.1 F 08/12/17 01:00 86 18 90/50 84 L 08/12/17 00:25 98.1 F 79 20 77/44 90 L 08/12/17 00:00 81 20 90/52 97 08/11/17 23:00 77 18 92/55 97 08/11/17 22:00 80 20 96/52 98 08/11/17 21:40 79 18 101/55 84 L 08/11/17 21:00 68 18 95/53 93 L 08/11/17 20:44 67 18 84/50 94 L 08/11/17 19:26 81 20 84/46 92 L 08/11/17 19:02 74 16 93/39 97 08/11/17 18:21 84 08/11/17 18:17 74 18 95/50 97 11/08/17 18:11 84 08/11/17 17:37 97.5 F L 84 16 73/30 78 L Intake and Output 08/11/17 08/12/17 08/12/17 22:59 06:59 14:59 Intake Total 120 420.643 Output Total 0 0 Balance 120 420.643 Intake: IV 120 410 Sodium Chloride 0.9% 500 120 160 ml @ 20 mls/hr IV .Q24H [facility] Rx#:[id number] Vancomycin 1,250 mg In 250 Sodium Chloride 0.9% 250 ml @ 125 mls/hr IVPB ONCE ONE Rx#:[id number] Intake, IV Titration 10.643 Amount Norepinephrin 16 mg-0.9% 10.643 Ns Pmx 16 mg In 250 ml @ Titrate IV .Q0M [facility] Rx#: [id number] Output: Urine 0 0 Other: Weight 73.028 kg 72.9 kg 72.9 kg Patient Weight 08/13/17 06:59 Weight 72.9 kg Gen. appearance, comfortable no acute distress. Head exam was generally normal. There was no scleral icterus or corneal arcus. Mucous membranes were moist. Neck was supple and without jugular venous distension, thyromegaly, or carotid bruits. Carotids were easily palpable bilaterally. There was no adenopathy. His got a permacath in his right subclavian area. Exit site is clean at this point Pulmonary: Diminished breath sounds bilaterally, no crackles or rhonchi or wheezes. Heart sounds are distant, positive S1-S2, rhythm. 2/6 systolic murmur throughout the precordium. Abdominal exam revealed normal bowel sounds. The abdomen was soft, non-tender, and without masses, organomegaly, or appreciable enlargement of the abdominal aorta. Examination of the extremities revealed easily palpable radial, femoral and pedal pulses. There was no cyanosis, clubbing or edema. Skin is thin and brittle and there is some ecchymotic areas and some superficial skin tears throughout his upper extremities. Neurologically is awake and alert and there is no focal neurological deficit. Skeletal exam shows no significant deformities or swelling Psychiatric: Adequate mental status examination, patient does have a blunt affect, Results - Laboratory Findings CBC and BMP: 08/12/17 02:54 08/12/17 02:54 PT/INR, D-dimer PT 11.3 sec (9.0-12.0) 08/11/17 18:16 INR 1.1 (<1.2) 08/11/17 18:16 D-Dimer 3.99 mg/L FEU (<0.60) H 08/11/17 18:16 Abnormal lab findings: Abnormal Labs 08/11/17 08/11/17 08/11/17 18:16 18:16 18:16 RBC 3.16 L Hgb 8.8 L Hct 30.6 L MCHC 28.9 L RDW 20.8 H Lymphocytes # 0.7 L APTT D-Dimer VBG pCO2 55 H VBG HCO3 29 H Sodium Creatinine Glucose POC Glucose (mg/dL) Calcium Alkaline Phosphatase Total Creatine Kinase 35 L CK-MB (CK-2) 2.7 H* Troponin I 0.066 H* Total Protein Albumin 08/11/17 08/11/17 08/12/17 18:16 18:16 02:54 RBC Hgb Hct MCHC RDW Lymphocytes # APTT 32.8 H 78.0 H D-Dimer 3.99 H VBG pCO2 VBG HCO3 Sodium 134 L Creatinine 1.88 H Glucose 58 L POC Glucose (mg/dL) Calcium 7.8 L Alkaline Phosphatase 380 H Total Creatine Kinase CK-MB (CK-2) Troponin I Total Protein 5.7 L Albumin 2.7 L 08/12/17 08/12/17 08/12/17 02:54 02:54 12:01 RBC 3.31 L Hgb 9.2 L Hct 31.8 L MCHC 29.0 L RDW 21.9 H Lymphocytes # APTT D-Dimer VBG pCO2 VBG HCO3 Sodium 134 L Creatinine 2.30 H Glucose 109 H POC Glucose (mg/dL) 160 H Calcium Alkaline Phosphatase Total Creatine Kinase CK-MB (CK-2) Troponin I Total Protein Albumin - Diagnostic Findings Chest x-ray: image reviewed Additional studies: Ultrasound of the chest was also reviewed and showed good sized right-sided pleural effusion. Assessment and Plan Assessment: Impression: 1 acute hypovolemic shock, possibility of sepsis and septic shock is less likely. His hypertension seems to be related to his recent hemodialysis and ultrafiltration. Not to mention the patient is known to have history of chronic hypotension related to severe LV function and has been on midodrine 10 mg 3 times a day for quite some time. 2 chronic right-sided pleural effusion and chronic systolic congestive heart failure. Will likely consider again a right-sided thoracentesis however I would have to hold Plavix for now. 3 multiple comorbidities including chronic renal failure and end-stage renal disease, COPD, peripheral vessel occlusive disease, coronary artery disease and previous stenting as well as previous bypass surgery, chronic hypotension, hyperlipidemia, hypothyroidism, chronic anemia, chronic medical debility, and previous history of syncope. Recommendation: Continue present supportive care measures, discussed his condition with his daughter at bedside, will likely arrange for thoracentesis in the next 24 hours. Time with Patient: Greater than 30
[2017-08-12 16:14] LABS: Iron Saturation 19.23 (15.00-50.00)
[2017-08-12 17:32] LABS: Glucose,Whole Blood 153 mg/dL (75-99)
--- NOTE | 2017-08-12 19:33 | HP ---
HISTORY AND PHYSICAL DATE OF ADMISSION: 08/11/2017. DATE OF SERVICE: 08/12/2017 PRESENTING COMPLAINT: Tired, short of breath. HISTORY OF PRESENTING COMPLAINT: This is a pleasant 72-year-old patient of Dr. Posada, rather extensive medical history. Patient has known end-stage kidney disease on hemodialysis Wednesday, , and Wednesday for close to a year and a half. The patient is a heavy ex-smoker. The patient normally runs a systolic blood pressure in the 70s. History is obtained from the patient and the at the bedside. The patient has been rather weak and needs to be transferred from bed to the wheelchair, barely able to walk. The patient's appetite has been fair. The patient has not been feeling well for the last 3 or 4 days. Patient did go home after hemodialysis yesterday. He felt really weak and tired. Again, blood pressure down in the 70s systolic. Like I said, the patient's blood pressure normally does run that low. The patient was short of breath. The patient was put on Levophed, admitted to the ICU. The patient has known chronic pleural effusion, was here in the hospital about 4 weeks ago and had pleural effusion that was tapped. The patient also had congestive heart failure with EF of 20% to 25%. Denies any fever. Some cough. REVIEW OF SYSTEMS: CONSTITUTIONAL: Weak, tired. HEENT: None. RESPIRATORY: Baseline short of breath. CARDIOVASCULAR: As above. GASTROINTESTINAL: Last bowel movement 5 days ago. GENITOURINARY: Does not make urine. MUSCULOSKELETAL: Aches and pains in joints. DERMATOLOGICAL: Some chronic skin changes. HEMATOLOGIC: None. LYMPHATIC: None. PSYCHIATRY: Some depression. NEUROLOGICAL: Generalized weakness of muscles. PAST MEDICAL HISTORY: End-stage kidney disease on hemodialysis, COPD, AICD, hyperlipidemia, hypothyroid, AAA, BPH, anemia, CHF from systolic and diastolic dysfunction, EF 20% to 25%, bilateral pleural effusion, secondary pulmonary hypertension, coronary artery disease with stent, depression. PAST SURGICAL HISTORY: Cardiac cath with stent, AICD, pacemaker. SOCIAL HISTORY: Patient was a heavy drinker, stopped in 2014. Smoked a pack a day for 50 years, stopped about a year and a half ago. Lives with his . FAMILY HISTORY: Diabetes, hypertension, myocardial infarction. HOME MEDICATIONS: 1. Renal vitamin 1 tablet p.o. q.h.s. 2. Renvela 800 mg p.o. a.c. b.i.d. 3. Prilosec 20 mg p.o. q.h.s. 4. Remeron 15 mg p.o. q.h.s. 5. Midodrine 10 mg p.o. t.i.d. 6. Cytomel 5 mcg p.o. daily. 7. Synthroid 137 mcg p.o. daily. 8. DuoNeb q.i.d. p.r.n. 9. Vitamin B12 500 mcg p.o. daily. 10.Plavix 75 mg p.o. daily. 11.Symbicort 80/4.5, 2 puffs b.i.d. 12.Ventolin HFA 2 puffs q.i.d. p.r.n. 13.Tylenol 500 mg every 6 hours p.r.n. 14.Xanax 0.5 p.o. q.h.s. ALLERGIES: TO CIMETIDINE, PENICILLIN. PHYSICAL EXAMINATION: VITAL SIGNS: On presentation, temperature 97.5, pulse 84, respirations 16, blood pressure 73/30, pulse ox 98% on room air. GENERAL APPEARANCE: Thin build, sitting up, tired-appearing. EYES: Showing exophthalmos. Conjunctivae pale. HEENT: External nose and ears normal. Oral cavity normal. NECK: JVD unable to assess. Mass not palpable. RESPIRATORY: Effort increased. LUNGS: Decreased breath sounds. Some crackles and wheezing. CARDIOVASCULAR: First and second sounds normal. Slight edema present. ABDOMEN: Soft, nontender. Liver, spleen not palpable. LYMPHATIC: No lymph nodes palpable in neck or axillae. PSYCHIATRY: Alert and oriented x3. Mood and affect tired-appearing. CHEST WALL: Right chest wall hemodialysis catheter. LOWER EXTREMITY: Slight redness is present with scabs are present. MUSCULOSKELETAL: Evidence of osteoarthritis in multiple joints. INVESTIGATIONS: White count 4.1, hemoglobin 8.8. D-dimer 3.99. Potassium 3.6, BUN 9, creatinine 1.88. Troponin 0.066. Albumin 2.7. Chest x-ray shows pleural effusion and pulmonary edema, more so on the right side. ASSESSMENT: 1. Acute on chronic congestive heart failure exacerbation with systolic and diastolic dysfunction, ejection fraction 20% to 25% from underlying hypertensive heart disease. 2. End-stage kidney disease on hemodialysis Wednesday, and Wednesday. 3. Acute chronic obstructive pulmonary disease exacerbation in an ex-smoker. 4. Automatic implantable cardioverter-defibrillator. 5. Hyperlipidemia. 6. Hypothyroidism. 7. Benign prostatic hypertrophy. 8. Anemia secondary to chronic kidney disease. 9. Bilateral pleural effusion. 10.Underlying congestive heart failure, right greater than left. 11.Secondary pulmonary hypertension secondary to chronic obstructive pulmonary disease. 12.Coronary artery disease with prior history of stent. 13.Depression, not otherwise specified. 14.Moderate protein-calorie malnutrition with decreased muscle mass, hypoalbuminemia. 15.Secondary hyperparathyroidism. 16.Chronic hypotension from decreased muscle mass. Poor ejection fraction. 17.CODE STATUS: FULL. PLAN: The patient has been on a Levophed drip. Cardiology, Pulmonary, Nephrology were consulted. The patient is already on midodrine. The patient has a very slight cellulitis of the lower extremity. We will use Silvadene cream with Kerlix and Medhat wrap. This should also help with the blood pressure. Will check patient's thyroid status, as I feel it may be a bit over-replaced, given that he has a bit of exophthalmos. Care was discussed in detail with the patient and the . Questions were answered. MMGERALDOL / GABRIELN: [id number] /
[2017-08-12] MEDS: IPRATROPIUM-ALBUTEROL 3 ML NEB INHALATION SCH (20:01)
[2017-08-13] MEDS: SODIUM CHLORIDE 0.9% 500 ML IV SCH ×2 (00:43→23:17)
[2017-08-13] MEDS: HEPARIN SODIUM,PORCINE 5,000 UNIT/ML 1 ML VIAL SQ SCH ×4 (00:49→23:17)
[2017-08-13 04:45] LABS: Anisocytosis Moderate; Basophils % (A) 0 %; CHCM 28.7; Eosinophils % (A) 0 %; HCT 29.1 % (39.0-53.0); HDW 3.71; HGB 8.7 gm/dL (13.0-17.5); Hypochromasia Marked; Luc # (Auto) 0.18; Luc % (Auto) 3; Lymphocytes # (A) 0.5 k/uL (1.0-4.8); Lymphocytes % (A) 9 %; MCH 28.4 pg (25.0-35.0); MCHC 29.7 g/dL (31.0-37.0); MCV 95.4 fL (80.0-100.0); Macrocytosis Slight; Mean Platelet Volume 8.3; Monocytes # (A) 0.4 k/uL (0-1.0); Monocytes % (A) 7 %; Neutrophils # (A) 4.2 k/uL (1.3-7.7); Neutrophils % (A) 80 %; Poikilocytosis Slight; RBC 3.05 m/uL (4.30-5.90); RDW 22.1 % (11.5-15.5); WBC 5.2 k/uL (3.8-10.6); WBC (Perox) 5.69
[2017-08-13 05:05] LABS: Calcium 8.8 mg/dL (8.4-10.2); Phosphorus 5.7 mg/dL (2.5-4.5); Potassium 3.8 mmol/L (3.5-5.1)
[2017-08-13] MEDS: LEVOTHYROXINE 137 MCG TAB PO SCH (06:17)
[2017-08-13] MEDS: SYMBICORT 80-4.5 MCG INHALER INHALATION SCH ×2 (07:12→20:46)
[2017-08-13] MEDS: IPRATROPIUM-ALBUTEROL 3 ML NEB INHALATION SCH ×4 (07:12→20:50)
[2017-08-13] MEDS: MIDODRINE 5 MG TAB PO SCH ×3 (07:52→22:56)
[2017-08-13] MEDS: SEVELAMER 800 MG TAB PO SCH ×2 (07:52→22:57)
[2017-08-13] MEDS: LIOTHYRONINE SODIUM 5 MCG TAB PO SCH ×2 (08:46→22:57)
--- NOTE | 2017-08-13 09:05 | XR ---
EXAMINATION TYPE: XR chest 1V DATE OF EXAM: 08/13/2017 COMPARISON: 08/12/2017 INDICATION: Congestive heart failure TECHNIQUE: Single frontal view of the chest is obtained. FINDINGS: The heart size is normal. The pulmonary vasculature is prominent. There is a moderate right pleural effusion. A small left pleural effusion is present. These appear st able. Some mild infiltrate is within the lungs likely on the basis of pulmonary edema or compressive atelectasis. Pacemaker overlies left chest. EKG leads overlie the chest. Double-lumen catheter is on the right wit h the tips in right atrium. IMPRESSION: 1. Moderate right and small left pleural effusion, stable. 2. Mild stable pulmonary edema or compressive atelectasis.
--- NOTE | 2017-08-13 10:37 | P.PN ---
Subjective Progress Note Date: 08/13/17 Principal diagnosis: Hypertension This is a pleasant 72-year-old gentleman who sees Dr. Escobedo in the office as an outpatient with an extensive past medical history consistent off coronary artery disease and prior coronary revascularization, severe ischemic cardiomyopathy and status post ICD, end stage renal disease on hemodialysis, chronic persistent atrial fibrillation not on any anticoagulation, was brought to the hospital by his after dialysis yesterday. The patient just was admitted to the hospital a few weeks ago after he was found unconscious at his bed by his . At that point he was intubated and then he was extubated and discharged in stable medical condition. This time the patient was in his usual state of health until yesterday when he had dialysis and 3 L of fluid were taken out on subsequently the patient was feeling weak and shaky and unable to stand up as usual. He did not lose his consciousness. No dizziness or lightheadedness and no syncope. No chest pain or chest discomfort. The blood pressure was found to be low in the 70s and 80s but the patient's blood pressure normally runs in the 80s systolic. The patient was admitted to the hospital and he was started on Levophed to support the blood pressure. Beside that he is on midodrine. The EKG showed ventricular paced rhythm with baseline atrial fibrillation. The cardiac enzymes are slightly elevated but the patient did not have any chest pain or chest discomfort. The chest x-ray showed bilateral pleural effusion and pulmonary vascular congestion. On follow-up with the patient on August 13, overall he is feeling better. He is off Levophed and currently he is on midodrine only. He just underwent pleurocentesis and 2 L of fluid were taken out. Otherwise the patient is asymptomatic. Objective - Vital Signs Vital signs: Vital Signs Temp 98.1 F 08/13/17 04:00 Pulse 78 08/13/17 07:23 Resp 20 08/13/17 07:00 BP 84/57 08/13/17 07:00 Pulse Ox 98 08/13/17 06:00 Intake & Output 08/12/17 08/13/17 08/13/17 18:59 06:59 18:59 Intake Total 750.643 440 160 Output Total 0 0 0 Balance 750.643 440 160 Weight 72.9 kg 78.6 kg Intake: IV 490 240 60 Sodium Chloride 0.9% 500 240 240 60 ml @ 20 mls/hr IV .Q24H [facility] Rx#:[id number] Vancomycin 1,250 mg In 250 Sodium Chloride 0.9% 250 ml @ 125 mls/hr IVPB ONCE ONE Rx#:[id number] Intake, IV Titration 10.643 Amount Norepinephrin 16 mg-0.9% 10.643 Ns Pmx 16 mg In 250 ml @ Titrate IV .Q0M [facility] Rx#: [id number] Oral 250 200 100 Output: Urine 0 0 0 Other: Voiding Method Urinal # Voids 0 0 - Constitutional General appearance: Present: no acute distress - Respiratory Respiratory: bilateral: diminished - Cardiovascular Heart sounds: normal: S2 Abnormal Heart Sounds: Present: systolic murmur - Labs CBC & Chem 7: 08/13/17 04:26 08/13/17 04:26 Labs: Abnormal Lab Results - Last 24 Hours (Table) 08/12/17 08/12/17 08/12/17 Range/Units 02:54 12:01 17:30 RBC (4.30-5.90) m/uL Hgb (13.0-17.5) gm/dL Hct (39.0-53.0) % MCHC (31.0-37.0) g/dL RDW (11.5-15.5) % Lymphocytes # (1.0-4.8) k/uL Sodium (137-145) mmol/L BUN (9-20) mg/dL Creatinine (0.66-1.25) mg/dL Glucose (74-99) mg/dL POC Glucose (mg/dL) 160 H 153 H (75-99) mg/dL Phosphorus (2.5-4.5) mg/dL Iron 40 L (65-175) ug/dL TIBC 208 L (228-460) ug/dL Ferritin 947.6 H (22.0-322.0) ng/mL 08/13/17 08/13/17 Range/Units 04:26 04:26 RBC 3.05 L (4.30-5.90) m/uL Hgb 8.7 L (13.0-17.5) gm/dL Hct 29.1 L (39.0-53.0) % MCHC 29.7 L (31.0-37.0) g/dL RDW 22.1 H (11.5-15.5) % Lymphocytes # 0.5 L (1.0-4.8) k/uL Sodium 133 L (137-145) mmol/L BUN 33 H (9-20) mg/dL Creatinine 3.50 H (0.66-1.25) mg/dL Glucose 128 H (74-99) mg/dL POC Glucose (mg/dL) (75-99) mg/dL Phosphorus 5.7 H (2.5-4.5) mg/dL Iron (65-175) ug/dL TIBC (228-460) ug/dL Ferritin (22.0-322.0) ng/mL Microbiology - Last 24 Hours (Table) 08/11/17 18:16 Blood Culture - Preliminary Blood No Growth after 24 hours Assessment and Plan Assessment: This is a 72-year-old gentleman with extensive cardiac history as described above was brought to the hospital by his with generalized weakness and fatigue. The patient of Levophed and currently he is on midodrine to support the blood pressure. He is asymptomatic from a cardiovascular standpoint of view. We'll continue the current medical treatment and follow-up with the patient for additional 24 hours.
--- NOTE | 2017-08-13 11:29 | XR ---
EXAMINATION TYPE: XR chest 1V portable DATE OF EXAM: 08/13/2017 COMPARISON: 08/13/2017 earlier exam INDICATION: Postthoracentesis, right pleural effusion TECHNIQUE: Single frontal view of the chest is obtained. FINDINGS: The heart size is enlarged. The pulmonary vasculature is slightly prominent. The moderate right pleural effusion is diminished the right base. Some mild residual atelectasis may be at the right base. The left pleural effusion is stable. Electronic device overlies left chest. Cat heter present on the right with the tips in the right atrium is stable. No pneumothorax is evident po st thoracentesis. IMPRESSION: 1. No pneumothorax post right-sided thoracentesis.
--- NOTE | 2017-08-13 11:54 | PN ---
PROGRESS NOTE Patient is seen for followup for end-stage renal disease. He was admitted to the hospital with weakness and hypotension. Patient had been on Levophed overnight. This morning, the Levophed has been discontinued. He was also volume overloaded. He had dialysis. Patient will be dialyzed today. He is maintained on oral midodrine. He does have ischemic cardiomyopathy and normally runs low blood pressure with systolic in the 80s to 90s. PHYSICAL EXAMINATION: Today, patient is comfortable. He is asking for his lower extremity wraps to be removed. Blood pressure is 100/62, heart rate 73 per minute. He is afebrile. Examination of the heart S1, S2. Examination lungs, decreased breath sounds bases. Abdomen is soft, nontender. Examination of the lower extremities shows bilateral extremities to be wrapped. LABS: Revealed sodium 133, potassium 3.8, BUN 33, serum creatinine 3.5, hemoglobin 8.7 g/dL. ASSESSMENT: 1. End-stage renal disease, on hemodialysis on a Wednesday, Wednesday, Wednesday schedule. Patient will be dialyzed today. 2. Volume overload. We will try to increase UF as tolerated. 3. Systolic congestive heart failure with ejection fraction 20% to 25%, which is chronic with moderate pulmonary hypertension. 4. Anemia of chronic disease. 5. Chronic kidney disease mineral bone disease, maintained on Renvela. PLAN: Hemodialysis today. Maintain midodrine and increase oral intake. MMODL / IJN: [id number] /
--- NOTE | 2017-08-13 12:23 | P.PN ---
Subjective Progress Note Date: 08/13/17 Principal diagnosis: Acute hypotension and acute hypovolemic shock. This is a 72-year-old white male with history of multiple medical problems including end-stage renal disease, on hemodialysis, severe ischemic cardiomyopathy and previous ICD placement, history of chronic right-sided pleural effusion, history of chronic atrial fibrillation, history of coronary artery disease and previous coronary revascularization, patient was recently discharged from [facility] on 07/07/2017, and at that time I saw the patient for pleural effusion were and I performed thoracentesis and 1500 mL of fluid were drained. Patient's last dialysis was yesterday, since Wednesday the patient has been progressively weaker. Refused to go to the hospital but when he went home after dialysis yesterday, he felt quite shaky, had some blurred vision, and was generally weak. Brought into the hospital were in he was found to be hypotensive systolic blood pressure was in the low 70s and 80s. Patient was placed on levo fed, however by the time I evaluated the patient in the ICU, he was off norepinephrine. Patient is known to have history of severe LV dysfunction and ejection fraction is 20-25%. His also known to have history of moderate pulmonary hypertension. At any rate considering his chest x-ray is showing pulmonary edema and right-sided pleural effusion, I was asked to see him on consultation. Ultrasound of the chest clearly showed is 7.8 cm pocket of fluid in the right pleural space, and I would likely consider holding anticoagulation therapy, and I will arrange for thoracentesis. Reevaluated today on 08/13/2017, patient is basically about the same, continues to remain generally weak. Some shortness of breath with any activity, chest x- ray and ultrasound of the chest were reviewed, and I proceeded with a right- sided thoracentesis today, 2000 mL of fluid was removed from the right pleural space. Patient is going to receive hemodialysis today, and this is planned shortly after my thoracentesis. Patient is not requiring any hemodynamic support. CBC showed hemoglobin of 8.7 and electrolytes are normal BUN is 33 creatinine 3.50. Remains on antibiotics empirically, however I will go ahead and discontinue vancomycin. Blood cultures are negative so far Objective - Vital Signs Vital signs: Vital Signs Temp 97.9 F 08/13/17 08:00 Pulse 69 08/13/17 11:38 Resp 16 08/13/17 11:00 BP 100/62 08/13/17 11:00 Pulse Ox 98 08/13/17 11:00 Intake & Output 08/12/17 08/13/17 08/13/17 18:59 06:59 18:59 Intake Total 750.643 440 200 Output Total 0 0 0 Balance 750.643 440 200 Weight 72.9 kg 78.6 kg Intake: IV 490 240 100 Sodium Chloride 0.9% 500 240 240 100 ml @ 20 mls/hr IV .Q24H [facility] Rx#:[id number] Vancomycin 1,250 mg In 250 Sodium Chloride 0.9% 250 ml @ 125 mls/hr IVPB ONCE ONE Rx#:[id number] Intake, IV Titration 10.643 Amount Norepinephrin 16 mg-0.9% 10.643 Ns Pmx 16 mg In 250 ml @ Titrate IV .Q0M [facility] Rx#: [id number] Oral 250 200 100 Output: Urine 0 0 0 Other: Voiding Method Urinal # Voids 0 0 # Bowel Movements 1 - Exam Gen. appearance, comfortable no acute distress. Head exam was generally normal. There was no scleral icterus or corneal arcus. Mucous membranes were moist. Patient looks a bit pale. Neck was supple and without jugular venous distension, thyromegaly, or carotid bruits. Carotids were easily palpable bilaterally. There was no adenopathy. His got a permacath in his right subclavian area. Exit site is clean at this point Pulmonary: Diminished breath sounds bilaterally, no crackles or rhonchi or wheezes. Heart sounds are distant, positive S1-S2, rhythm. 2/6 systolic murmur throughout the precordium. Abdominal exam revealed normal bowel sounds. The abdomen was soft, non-tender, and without masses, organomegaly, or appreciable enlargement of the abdominal aorta. Examination of the extremities revealed easily palpable radial, femoral and pedal pulses. There was no cyanosis, clubbing or edema. Skin is thin and brittle and there is some ecchymotic areas and some superficial skin tears throughout his upper extremities. Neurologically is awake and alert and there is no focal neurological deficit. Skeletal exam shows no significant deformities or swelling Psychiatric: Adequate mental status examination, patient does have a blunt affect, - Labs CBC & Chem 7: 08/13/17 04:26 08/13/17 04:26 Labs: Abnormal Lab Results - Last 24 Hours (Table) 08/12/17 08/12/17 08/13/17 Range/Units 02:54 17:30 04:26 RBC 3.05 L (4.30-5.90) m/uL Hgb 8.7 L (13.0-17.5) gm/dL Hct 29.1 L (39.0-53.0) % MCHC 29.7 L (31.0-37.0) g/dL RDW 22.1 H (11.5-15.5) % Lymphocytes # 0.5 L (1.0-4.8) k/uL Sodium (137-145) mmol/L BUN (9-20) mg/dL Creatinine (0.66-1.25) mg/dL Glucose (74-99) mg/dL POC Glucose (mg/dL) 153 H (75-99) mg/dL Phosphorus (2.5-4.5) mg/dL Iron 40 L (65-175) ug/dL TIBC 208 L (228-460) ug/dL Ferritin 947.6 H (22.0-322.0) ng/mL 08/13/17 Range/Units 04:26 RBC (4.30-5.90) m/uL Hgb (13.0-17.5) gm/dL Hct (39.0-53.0) % MCHC (31.0-37.0) g/dL RDW (11.5-15.5) % Lymphocytes # (1.0-4.8) k/uL Sodium 133 L (137-145) mmol/L BUN 33 H (9-20) mg/dL Creatinine 3.50 H (0.66-1.25) mg/dL Glucose 128 H (74-99) mg/dL POC Glucose (mg/dL) (75-99) mg/dL Phosphorus 5.7 H (2.5-4.5) mg/dL Iron (65-175) ug/dL TIBC (228-460) ug/dL Ferritin (22.0-322.0) ng/mL Microbiology - Last 24 Hours (Table) 08/11/17 18:16 Blood Culture - Preliminary Blood No Growth after 24 hours Assessment and Plan Assessment: Impression: 1 acute hypovolemic shock, possibility of sepsis and septic shock is less likely. His hypertension seems to be related to his recent hemodialysis and ultrafiltration. Not to mention the patient is known to have history of chronic hypotension related to severe LV function and has been on midodrine 10 mg 3 times a day for quite some time. 2 chronic right-sided pleural effusion and chronic systolic congestive heart failure. Will likely consider again a right-sided thoracentesis however I would have to hold Plavix for now. 3 status post right sided thoracentesis and 2 L of fluid were removed. This was done on 08/13/2017. 4 multiple comorbidities including chronic renal failure and end-stage renal disease, COPD, peripheral vessel occlusive disease, coronary artery disease and previous stenting as well as previous bypass surgery, chronic hypotension, hyperlipidemia, hypothyroidism, chronic anemia, chronic medical debility, and previous history of syncope. Recommendation: Continue present supportive care measures, discussed his condition with his at bedside, patient could be transferred to a monitored bed on selective. Time with Patient: Less than 30
[2017-08-13] MEDS: CYANOCOBALAMIN 500 MCG TAB PO SCH (12:34)
--- NOTE | 2017-08-13 13:01 | PCN ---
PROCEDURE NOTE OPERATIVE REPORT: Right-sided thoracentesis. PREOPERATIVE DIAGNOSIS: Large right pleural effusion. POSTOPERATIVE DIAGNOSIS: Large right pleural effusion. ANESTHESIA USED: 3 mL of 1% lidocaine. PROCEDURE: The patient was placed in a sitting upright position, leaning over a table in front of him. Then, the area below the right scapula was prepared in a sterile fashion and drapes were applied. The area of the fluid was earlier localized by ultrasound guidance. At that same level, which is the level of the 8th intercostal space and tip of the scapula, the area was locally anesthetized with lidocaine. Then a standard 22- gauge needle was inserted and advanced into the pleural space until the fluid was localized to the needle. Then a small tiny incision was made at the same site using a scalpel, and the catheter with a needle was inserted at the same site, advanced into the pleural space until the fluid was obtained. Then, the catheter was advanced over the needle into the pleural space, and the needle was pulled out. Freely flowing fluid was noted, roughly 2000 mL of dennis colored fluid removed from the right pleural space. The fluid was not sent for diagnostic studies since it was already done previously. The procedure was well tolerated. No evidence of any immediate complication. A total of 2000 mL were drained from the right pleural space. MMODL / IJN: [id number] /
[2017-08-13 15:46] LABS: Calcium 8.7 mg/dL (8.4-10.2); Potassium 3.8 mmol/L (3.5-5.1)
[2017-08-13] MEDS ORDERED: MIDODRINE 5 MG TAB PO STA (15:52)
--- NOTE | 2017-08-13 17:15 | PN ---
PROGRESS NOTE DATE OF SERVICE: 08/13/2017 ATTENDING NOTE: Patient was seen and examined by me. I discussed with my nurse practitioner, Ms. Burt. Patient is in the ICU with hypotension, had been on Levophed. Patient today had 2 L of fluid tapped from the chest by Dr. Street. Breathing is better. Eating a bit better. EXAMINATION: Afebrile, pulse 72, blood pressure 93/52, pulse 96% on room air. Sitting up. LUNGS: Decreased breath sounds. Awake. INVESTIGATIONS: White count 5.2, hemoglobin 8.7. Potassium 3.8. ASSESSMENT: 1. Acute on chronic congestive heart failure exacerbation from systolic and diastolic dysfunction, ejection fraction 20% to 25%, underlying hypertensive heart disease. 2. Status post thoracentesis. 3. Chronically hypotensive for multiple reasons. The patient had been on a small dose of Levophed overnight. PLAN: Care was discussed with the patient and at the bedside. Will check the patient's thyroid status. Prognosis guarded. MMODL / IJN: [id number] /
--- NOTE | 2017-08-13 19:50 | P.PN ---
Progress Note - Text Progress Note Date: 08/13/17 DATE OF SERVICE: 08/13/2017 PRESENTING COMPLAINT: Tired short of breath HISTORY OF PRESENT ILLNESS: 72-year-old male resents to the emergency department because he is not been feeling well for the last 3 or 4 days. Has end-stage kidney disease with hemodialysis on Wednesdays. Patient had been to his most recent hemodialysis treatment and he felt more weak and tired and usual blood pressure was found to be in the 70s systolic. Chest x-ray showed pleural effusions and pulmonary edema more so on the right side. Found to be anemic acute on chronic congestive heart failure exacerbation and was admitted for the same. INTERVAL HISTORY: 08/13/2017: Patient seen in follow-up today in the ICU, appears tired, patient is status post thoracentesis at the bedside by Dr. Vega, 2 L of fluid removed. Patient' s breathing is much improved. Tolerating about 50% of his diet, is primarily wheelchair-bound so he requires assistance for moving about. Planning for hemodialysis today and remove 3 L if patient can tolerate. REVIEW OF SYSTEMS: Done for constitutional ,cardiovascular, GI, pulmonary with relevant findings as above. CURRENT MEDICATIONS DuoNeb's, Xanax 0.25 mg by mouth daily when necessary, Xanax 0.5 mg by mouth at bedtime, budesonide/formoterol, Aranesp 40 g subcu's every 7 days, heparin 5000 units subcu every 8 hours, Synthroid 137 g by mouth daily Cytomel 5 g by mouth twice a day, ProAmatine 10 mg by mouth before meals 3 times a day, Remeron 15 mg by mouth at bedtime Nephrocaps one by mouth at bedtime, Protonix 40 mg by mouth at bedtime, Renvela 800 mg by mouth before meals twice a day, Silvadene cream applied for local wound care PHYSICAL EXAM VITAL SIGNS: Temperature 97.9, pulse 83, respiratory rate 20, blood pressure 84/57, oxygen saturation 97% on 3 L nasal cannula. GENERAL APPEARANCE: Thin build Lying in bed, not in distress. EYES: Pupils equal. Conjunctiva normal. NECK: JVD not raised. Mass not palpable. RESPIRATORY: Respiratory effort normal. Lungs diminished to auscultation. CARDIOVASCULAR: First and second sounds normal. No edema. ABDOMEN: Soft. Liver and spleen not palpable. No tenderness. No mass palpable. PSYCHIATRY: Alert and oriented x3. Mood and affect normal. INVESTIGATIONS: ASSESSMENT: -Acute on chronic congestive heart failure exacerbation from systolic and diastolic dysfunction, ejection fraction 20-25%. Underlying hypertensive heart disease. -Status post thoracentesis, 2 L of fluid removed from the right pleural space -Chronically hypotensive for multiple reasons. Patient has been on a small dose of Levophed overnight now discontinued. -End-stage kidney disease on hemodialysis Wednesday, and Wednesday. -Acute chronic obstructive pulmonary disease exacerbation and an ex-smoker. -Automatic implantable cardioverter defibrillator. -Hyperlipidemia. -Hypothyroidism. -Benign prostatic hypertrophy. -Anemia secondary to chronic kidney disease. -Bilateral pleural effusion. -Underlying congestive heart failure, right greater than left. -Secondary pulmonary hypertension secondary to chronic obstructive pulmonary disease. -Coronary artery disease with prior history of stent. -Depression not otherwise specified. -Moderate protein calorie malnutrition with decreased muscle mass and hypoalbuminemia -Secondary hyperparathyroidism. -Chronic hypotension from decreased muscle mass. Poor ejection fraction. -CODE STATUS: FULL PLAN: Patient is status post right-sided thoracentesis with 2 L of fluid removed, and overall patient is back to his baseline. Patient could be transferred to a monitored bed on 6 E. We'll check thyroid in the morning. Prognosis remains guarded plan of care discussed with the and the patient at the bedside they are in agreement. We will follow closely. POUND ATTENDANT statement: Patient was seen and examined by nurse practitioner Dulce Burt and all elements of the case discussed with attending Dr. Traylor
[2017-08-13] MEDS: FOLIC ACID-VIT B COMPLEX-VIT C 1 CAP PO SCH (22:57)
[2017-08-13] MEDS: MIRTAZAPINE 15 MG TAB PO SCH (22:57)
[2017-08-13] MEDS: ALPRAZolam 0.5 MG TAB PO SCH (22:57)
[2017-08-13] MEDS: PANTOPRAZOLE 40 MG TABLET PO SCH (22:57)
[2017-08-14 06:17] LABS: Anisocytosis Moderate; Basophils % (A) 0 %; CH 27.7; CHCM 28.5; Eosinophils # (A) 0.2 k/uL (0-0.7); Eosinophils % (A) 3 %; HCT 30.2 % (39.0-53.0); HGB 8.6 gm/dL (13.0-17.5); Hypochromasia Marked; Luc % (Auto) 2; Lymphocytes # (A) 0.5 k/uL (1.0-4.8); Lymphocytes % (A) 10 %; MCH 27.9 pg (25.0-35.0); MCHC 28.3 g/dL (31.0-37.0); MCV 98.6 fL (80.0-100.0); Macrocytosis Moderate; Mean Platelet Volume 8.1; Monocytes # (A) 0.4 k/uL (0-1.0); Monocytes % (A) 8 %; Neutrophils # (A) 3.5 k/uL (1.3-7.7); Neutrophils % (A) 76 %; Poikilocytosis Slight; RBC 3.07 m/uL (4.30-5.90); RDW 22.3 % (11.5-15.5); WBC 4.6 k/uL (3.8-10.6); WBC (Perox) 4.51
[2017-08-14 06:33] LABS: Calcium 8.6 mg/dL (8.4-10.2); Magnesium 1.9 mg/dL (1.6-2.3); Phosphorus 3.4 mg/dL (2.5-4.5); Potassium 3.3 mmol/L (3.5-5.1)
[2017-08-14] MEDS: LEVOTHYROXINE 137 MCG TAB PO SCH (06:45)
[2017-08-14] MEDS: MIDODRINE 5 MG TAB PO SCH ×3 (06:45→16:53)
[2017-08-14] MEDS: SEVELAMER 800 MG TAB PO SCH ×2 (06:45→16:53)
[2017-08-14] MEDS: IPRATROPIUM-ALBUTEROL 3 ML NEB INHALATION SCH ×4 (07:45→20:00)
[2017-08-14] MEDS: SYMBICORT 80-4.5 MCG INHALER INHALATION SCH ×2 (07:45→20:00)
[2017-08-14] MEDS: HEPARIN SODIUM,PORCINE 5,000 UNIT/ML 1 ML VIAL SQ SCH ×3 (09:10→22:14)
[2017-08-14] MEDS: LIOTHYRONINE SODIUM 5 MCG TAB PO SCH ×2 (09:11→22:12)
[2017-08-14] MEDS ORDERED: POTASSIUM CHLORIDE ER 20 MEQ TAB.ER PO STA (09:43)
--- NOTE | 2017-08-14 09:43 | P.PN ---
Subjective Patient is seen in follow-up for end-stage renal disease. He is maintained on hemodialysis on a Wednesday schedule via right chest permacath. Patient presented with hypotension and generalized weakness. He was initially on vasopressors which has now been discontinued. He is currently resting in bed. No vomiting or diarrhea. Denies chest pain or shortness of breath. Oral intake is fair. He does have chronic CHF with ejection fraction of 20-25% with moderate pulmonary hypertension. He underwent right-sided thoracentesis on August 13 with 2 L drained. Vital signs are stable. General: The patient appeared well nourished and normally developed. HEENT: Head exam is unremarkable. Neck is without jugular venous distension. LUNGS: Lungs are clear to auscultation and percussion. Breath sounds decreased. HEART: Rate and Rhythm are regular. First and second heart sounds normal. No murmurs, rubs or gallops. ABDOMEN: Abdominal exam reveals normal bowel sounds. Non-tender and non- distended. No evidence of peritonitis. EXTREMITITES: No clubbing, cyanosis, or edema. Objective - Vital Signs Vital signs: Vital Signs Temp 96.9 F L 08/14/17 08:00 Pulse 69 08/14/17 08:00 Resp 18 08/14/17 08:00 BP 98/67 08/14/17 08:00 Pulse Ox 88 L 08/14/17 04:00 Intake & Output 08/13/17 08/14/17 08/14/17 18:59 06:59 18:59 Intake Total 480 160 0 Output Total 2000 Balance -1520 160 0 Weight 79.5 kg Intake: IV 220 60 Sodium Chloride 0.9% 500 220 60 ml @ 20 mls/hr IV .Q24H [facility] Rx#:[id number] Oral 260 100 0 Output: Urine 0 Other 1999 Other: Voiding Method Urinal Urinal # Voids 0 # Bowel Movements 1 - Labs CBC & Chem 7: 08/14/17 05:56 08/14/17 05:56 Labs: Abnormal Lab Results - Last 24 Hours (Table) 08/13/17 08/14/17 08/14/17 Range/Units 15:06 05:56 05:56 RBC 3.07 L (4.30-5.90) m/uL Hgb 8.6 L (13.0-17.5) gm/dL Hct 30.2 L (39.0-53.0) % MCHC 28.3 L (31.0-37.0) g/dL RDW 22.3 H (11.5-15.5) % Plt Count 136 L (150-450) k/uL Lymphocytes # 0.5 L (1.0-4.8) k/uL Sodium 133 L (137-145) mmol/L Potassium 3.3 L (3.5-5.1) mmol/L BUN 38 H 24 H (9-20) mg/dL Creatinine 3.70 H 2.98 H (0.66-1.25) mg/dL Glucose 111 H (74-99) mg/dL Microbiology - Last 24 Hours (Table) 08/11/17 18:16 Blood Culture - Preliminary Blood No Growth after 48 hours Assessment and Plan Plan: Assessment: #1. End-stage renal disease maintained on hemodialysis on a Wednesday schedule via right chest permacath. Patient was not cleared by cardiology to undergo AV fistula surgery. #2. Systolic CHF with ejection fraction of 20-25% with moderate pulmonary hypertension. #3. Chronic hypotension maintained on midodrine due to underlying cardiac status. Off all vasopressors. #4. Volume overload. #5. Anemia of chronic kidney disease. Iron deficiency noted. #6. Chronic kidney disease mineral bone disease maintained on Renvela. #7. Pleural effusion status post right-sided thoracentesis with 2 L drained on August 13. Plan: Hemodialysis Wednesday with goal 3-4 L ultrafiltration. Maintain midodrine 10 mg 3 times daily. Ferrlicit 125 mg IV once today. Maintain Aranesp. Low-salt and 1500 mL fluid restricted diet. Replace potassium. 20 mEq today.
[2017-08-14] MEDS ORDERED: SODIUM FERRIC GLUCONAT-SUCROSE 125 MG in SODIUM CHLORIDE 0.9% 100 ML IVPB ONE (09:45)
--- NOTE | 2017-08-14 11:02 | P.PN ---
Subjective Progress Note Date: 08/14/17 Principal diagnosis: Acute hypotension and acute hypovolemic shock. This is a 72-year-old white male with history of multiple medical problems including end-stage renal disease, on hemodialysis, severe ischemic cardiomyopathy and previous ICD placement, history of chronic right-sided pleural effusion, history of chronic atrial fibrillation, history of coronary artery disease and previous coronary revascularization, patient was recently discharged from [facility] on 07/07/2017, and at that time I saw the patient for pleural effusion were and I performed thoracentesis and 1500 mL of fluid were drained. Patient's last dialysis was yesterday, since Wednesday the patient has been progressively weaker. Refused to go to the hospital but when he went home after dialysis yesterday, he felt quite shaky, had some blurred vision, and was generally weak. Brought into the hospital were in he was found to be hypotensive systolic blood pressure was in the low 70s and 80s. Patient was placed on levo fed, however by the time I evaluated the patient in the ICU, he was off norepinephrine. Patient is known to have history of severe LV dysfunction and ejection fraction is 20-25%. His also known to have history of moderate pulmonary hypertension. At any rate considering his chest x-ray is showing pulmonary edema and right-sided pleural effusion, I was asked to see him on consultation. Ultrasound of the chest clearly showed is 7.8 cm pocket of fluid in the right pleural space, and I would likely consider holding anticoagulation therapy, and I will arrange for thoracentesis. Reevaluated today on 08/13/2017, patient is basically about the same, continues to remain generally weak. Some shortness of breath with any activity, chest x- ray and ultrasound of the chest were reviewed, and I proceeded with a right- sided thoracentesis today, 2000 mL of fluid was removed from the right pleural space. Patient is going to receive hemodialysis today, and this is planned shortly after my thoracentesis. Patient is not requiring any hemodynamic support. CBC showed hemoglobin of 8.7 and electrolytes are normal BUN is 33 creatinine 3.50. Remains on antibiotics empirically, however I will go ahead and discontinue vancomycin. Blood cultures are negative so far Reevaluated today on 08/14/2017, patient is feeling much better, remained generally weak, no cough no wheezing no shortness of breath no nausea no vomiting no abdominal pain. His pulmonary status has significantly improved since his right sided thoracentesis. CBC is relatively about the same hemoglobin is 8.6 electrolytes are relatively normal except for low potassium of 3.3 BUN is 24 creatinine 2.98. Follow-up chest x-ray yesterday after the thoracentesis showed dramatic improvement in his right pleural effusion. Objective - Vital Signs Vital signs: Vital Signs Temp 96.9 F L 08/14/17 08:00 Pulse 69 08/14/17 08:00 Resp 18 08/14/17 08:00 BP 98/67 08/14/17 08:00 Pulse Ox 88 L 08/14/17 04:00 Intake & Output 08/13/17 08/14/17 08/14/17 18:59 06:59 18:59 Intake Total 480 160 0 Output Total 1999 Balance -1520 160 0 Weight 79.5 kg Intake: IV 220 60 Sodium Chloride 0.9% 500 220 60 ml @ 20 mls/hr IV .Q24H [facility] Rx#:[id number] Oral 260 100 0 Output: Urine 0 Other 1999 Other: Voiding Method Urinal Urinal # Voids 0 # Bowel Movements 1 - Exam Gen. appearance, comfortable no acute distress. Head exam was generally normal. There was no scleral icterus or corneal arcus. Mucous membranes were moist. Patient looks a bit pale. Neck was supple and without jugular venous distension, thyromegaly, or carotid bruits. Carotids were easily palpable bilaterally. There was no adenopathy. His got a permacath in his right subclavian area. Exit site is clean at this point Pulmonary: Diminished breath sounds bilaterally, no crackles or rhonchi or wheezes. Heart sounds are distant, positive S1-S2, rhythm. 2/6 systolic murmur throughout the precordium. Abdominal exam revealed normal bowel sounds. The abdomen was soft, non-tender, and without masses, organomegaly, or appreciable enlargement of the abdominal aorta. Examination of the extremities revealed easily palpable radial, femoral and pedal pulses. There was no cyanosis, clubbing or edema. Skin is thin and brittle and there is some ecchymotic areas and some superficial skin tears throughout his upper extremities. Neurologically is awake and alert and there is no focal neurological deficit. Skeletal exam shows no significant deformities or swelling Psychiatric: Adequate mental status examination, patient does have a blunt affect, - Labs CBC & Chem 7: 08/14/17 05:56 08/14/17 05:56 Labs: Abnormal Lab Results - Last 24 Hours (Table) 08/13/17 08/14/17 08/14/17 Range/Units 15:06 05:56 05:56 RBC 3.07 L (4.30-5.90) m/uL Hgb 8.6 L (13.0-17.5) gm/dL Hct 30.2 L (39.0-53.0) % MCHC 28.3 L (31.0-37.0) g/dL RDW 22.3 H (11.5-15.5) % Plt Count 136 L (150-450) k/uL Lymphocytes # 0.5 L (1.0-4.8) k/uL Sodium 133 L (137-145) mmol/L Potassium 3.3 L (3.5-5.1) mmol/L BUN 38 H 24 H (9-20) mg/dL Creatinine 3.70 H 2.98 H (0.66-1.25) mg/dL Glucose 111 H (74-99) mg/dL Microbiology - Last 24 Hours (Table) 08/11/17 18:16 Blood Culture - Preliminary Blood No Growth after 48 hours Assessment and Plan Assessment: Impression: 1 acute hypovolemic shock, possibility of sepsis and septic shock is less likely. His hypertension seems to be related to his recent hemodialysis and ultrafiltration. Not to mention the patient is known to have history of chronic hypotension related to severe LV function and has been on midodrine 10 mg 3 times a day for quite some time. 2 chronic right-sided pleural effusion and chronic systolic congestive heart failure. Will likely consider again a right-sided thoracentesis however I would have to hold Plavix for now. 3 status post right sided thoracentesis and 2 L of fluid were removed. This was done on 08/13/2017. 4 multiple comorbidities including chronic renal failure and end-stage renal disease, COPD, peripheral vessel occlusive disease, coronary artery disease and previous stenting as well as previous bypass surgery, chronic hypotension, hyperlipidemia, hypothyroidism, chronic anemia, chronic medical debility, and previous history of syncope. Recommendation: Continue present supportive care measures, consider discharge planning early next week Time with Patient: Less than 30
[2017-08-14] MEDS: CYANOCOBALAMIN 500 MCG TAB PO SCH (12:36)
--- NOTE | 2017-08-14 15:04 | P.PN ---
Progress Note - Text Progress Note Date: 08/14/17 DATE OF SERVICE: 08/14/2017 PRESENTING COMPLAINT: Tired short of breath HISTORY OF PRESENT ILLNESS: 72-year-old male resents to the emergency department because he is not been feeling well for the last 3 or 4 days. Has end-stage kidney disease with hemodialysis on Wednesdays. Patient had been to his most recent hemodialysis treatment and he felt more weak and tired and usual blood pressure was found to be in the 70s systolic. Chest x-ray showed pleural effusions and pulmonary edema more so on the right side. Found to be anemic acute on chronic congestive heart failure exacerbation and was admitted for the same. INTERVAL HISTORY: 08/14/2017: Patient seen in follow-up today on 6 E. Tired appearing status post thoracentesis yesterday 2 L of fluid removed. States breathing is much improved , tolerating about 50% of his diet primarily wheelchair-bound requires assistance for getting around. Hemodialysis will be on Wednesday discharge planning for her rehabilitation for strengthening. Discussion had with the bedside with attending physician Dr. Traylor about CODE STATUS patient and understand state of patient's current condition and are agreeable changing CODE STATUS from full code to no code. 08/13/2017: Patient seen in follow-up today in the ICU, appears tired, patient is status post thoracentesis at the bedside by Dr. Vega, 2 L of fluid removed. Patient' s breathing is much improved. Blood pressure continues to be low systolic 70s to 90s, on midodrine. This is patient's norm. Tolerating about 50% of his diet , is primarily wheelchair-bound so he requires assistance for moving about. Planning for hemodialysis today and remove 3 L if patient can tolerate. REVIEW OF SYSTEMS: Done for constitutional ,cardiovascular, GI, pulmonary with relevant findings as above. CURRENT MEDICATIONS DuoNeb's, Xanax 0.25 mg by mouth daily when necessary, Xanax 0.5 mg by mouth at bedtime, budesonide/formoterol, Aranesp 40 g subcu's every 7 days, heparin 5000 units subcu every 8 hours, Synthroid 137 g by mouth daily Cytomel 5 g by mouth twice a day, ProAmatine 10 mg by mouth before meals 3 times a day, Remeron 15 mg by mouth at bedtime Nephrocaps one by mouth at bedtime, Protonix 40 mg by mouth at bedtime, Renvela 800 mg by mouth before meals twice a day, Silvadene cream applied for local wound care PHYSICAL EXAM VITAL SIGNS: Temperature 96.7, pulse 71, respiratory rate 16, blood pressure 90/53, oxygen saturation 89% on 2 L. GENERAL APPEARANCE: Thin build Lying in bed, not in distress. EYES: Pupils equal. Conjunctiva normal. NECK: JVD not raised. Mass not palpable. RESPIRATORY: Respiratory effort normal. Lungs diminished to auscultation. CARDIOVASCULAR: First and second sounds normal. No edema. ABDOMEN: Soft. Liver and spleen not palpable. No tenderness. No mass palpable. PSYCHIATRY: Alert and oriented x3. Mood and affect normal. INVESTIGATIONS: Hemoglobin 8.6, sodium 137, potassium 3.3, BUN 24, creatinine Accu-Cheks noted. ASSESSMENT: -Acute on chronic congestive heart failure exacerbation from systolic and diastolic dysfunction, ejection fraction 20-25%. Underlying hypertensive heart disease. -Status post thoracentesis, 2 L of fluid removed from the right pleural space -Chronically hypotensive for multiple reasons. Patient has been on a small dose of Levophed overnight now discontinued. -End-stage kidney disease on hemodialysis Wednesday, and Wednesday. -Acute chronic obstructive pulmonary disease exacerbation and an ex-smoker. -Automatic implantable cardioverter defibrillator. -Hyperlipidemia. -Hypothyroidism. -Benign prostatic hypertrophy. -Anemia secondary to chronic kidney disease. -Bilateral pleural effusion. -Underlying congestive heart failure, right greater than left. -Secondary pulmonary hypertension secondary to chronic obstructive pulmonary disease. -Coronary artery disease with prior history of stent. -Depression not otherwise specified. -Moderate protein calorie malnutrition with decreased muscle mass and hypoalbuminemia -Secondary hyperparathyroidism. -Chronic hypotension from decreased muscle mass. Poor ejection fraction. -CODE STATUS: No code PLAN: Patient is status post right-sided thoracentesis with 2 L of fluid removed, and overall patient is back to his baseline. Discussion had at the bedside with attending physician Dr. Traylor and regarding patient's current situation and the likelihood of seeing improvement as well as changing CODE STATUS to no code they were agreeable. Prognosis remains guarded plan of care discussed with the and the patient at the bedside. We will follow closely. BANANA HANDLER statement: Patient was seen and examined by nurse practitioner Dulce Burt and all elements of the case discussed with attending Dr. Traylor
[2017-08-14] MEDS: ALPRAZolam 0.5 MG TAB PO SCH (22:11)
--- NOTE | 2017-08-14 22:11 | PN ---
PROGRESS NOTE DATE OF SERVICE: 08/14/17. ATTENDING NOTE: This patient was seen and examined by me. I discussed with my nurse practitioner, Ms. Burt. This is a patient with the low ejection fraction, is chronically hypotensive, presented with some shortness of breath and thoracentesis was carried out. 2 L was removed. Patient blood pressure is running in around the 90s now. is at the bedside. PHYSICAL EXAMINATION: Afebrile, blood pressure 90/53, respiration 16. LUNGS: Decreased breath sounds. ASSESSMENT: Persistent hypotension, multifactorial in a patient with known ejection fraction of 20 to 25%, status post thoracentesis. PLAN: I discussed with Dr. Marie from Nephrology. Overall prognosis is guarded. Options are rather limited. Advance care planning: Care was discussed with the patient and at length. Overall guarded prognosis. End stage kidney disease and rather advanced cardiac function. The patient is agreeable to proceed to be DO NOT RESUSCITATE, understands his guarded prognosis. Different questions were answered to their satisfaction. Patient's code status is therefore being changed to DO NOT RESUSCITATE. Discussion in addition to the progress note took about 20 to 25 minutes. MMODL / IJN: [id number] /
[2017-08-14] MEDS: FOLIC ACID-VIT B COMPLEX-VIT C 1 CAP PO SCH (22:12)
[2017-08-14] MEDS: PANTOPRAZOLE 40 MG TABLET PO SCH (22:12)
[2017-08-14] MEDS: MIRTAZAPINE 15 MG TAB PO SCH (22:12)
[2017-08-14] MEDS: SODIUM CHLORIDE 0.9% 500 ML IV SCH (22:14)
[2017-08-15 06:17] LABS: Anisocytosis Moderate; Basophils % (A) 1 %; CH 27.4; CHCM 28.5; Eosinophils # (A) 0.2 k/uL (0-0.7); Eosinophils % (A) 4 %; HCT 30.1 % (39.0-53.0); HDW 3.71; HGB 8.6 gm/dL (13.0-17.5); Hypochromasia Marked; Luc # (Auto) 0.11; Luc % (Auto) 3; Lymphocytes # (A) 0.6 k/uL (1.0-4.8); Lymphocytes % (A) 15 %; MCHC 28.7 g/dL (31.0-37.0); MCV 97.9 fL (80.0-100.0); Macrocytosis Moderate; Mean Platelet Volume 7.6; Monocytes # (A) 0.3 k/uL (0-1.0); Monocytes % (A) 8 %; Neutrophils # (A) 2.7 k/uL (1.3-7.7); Neutrophils % (A) 69 %; Poikilocytosis Slight; RBC 3.08 m/uL (4.30-5.90); RDW 22.4 % (11.5-15.5); WBC 3.9 k/uL (3.8-10.6); WBC (Perox) 3.86
[2017-08-15 06:27] LABS: Calcium 8.8 mg/dL (8.4-10.2); Magnesium 1.9 mg/dL (1.6-2.3); Phosphorus 3.3 mg/dL (2.5-4.5); Potassium 3.6 mmol/L (3.5-5.1)
[2017-08-15] MEDS: LEVOTHYROXINE 137 MCG TAB PO SCH (06:30)
[2017-08-15] MEDS: MIDODRINE 5 MG TAB PO SCH ×3 (06:30→17:07)
[2017-08-15] MEDS: SEVELAMER 800 MG TAB PO SCH ×2 (06:31→17:07)
[2017-08-15] MEDS: IPRATROPIUM-ALBUTEROL 3 ML NEB INHALATION SCH ×4 (08:16→20:41)
[2017-08-15] MEDS: SYMBICORT 80-4.5 MCG INHALER INHALATION SCH ×2 (08:16→20:41)
[2017-08-15] MEDS: LIOTHYRONINE SODIUM 5 MCG TAB PO SCH ×2 (09:14→20:11)
[2017-08-15] MEDS: HEPARIN SODIUM,PORCINE 5,000 UNIT/ML 1 ML VIAL SQ SCH ×2 (09:14→15:21)
--- NOTE | 2017-08-15 09:16 | P.PN ---
Subjective Patient is seen in follow-up for end-stage renal disease. He is maintained on hemodialysis on a Wednesday schedule via right chest permacath. Patient presented with hypotension and generalized weakness. He was initially on vasopressors which has now been discontinued. He is currently resting in bed. No vomiting or diarrhea. Denies chest pain or shortness of breath. Oral intake is fair. He does have chronic CHF with ejection fraction of 20-25% with moderate pulmonary hypertension. He underwent right-sided thoracentesis on August 13 with 2 L drained. No active complaints at this time. Vital signs are stable. General: The patient appeared well nourished and normally developed. HEENT: Head exam is unremarkable. Neck is without jugular venous distension. LUNGS: Lungs are clear to auscultation and percussion. Breath sounds decreased. HEART: Rate and Rhythm are regular. First and second heart sounds normal. No murmurs, rubs or gallops. ABDOMEN: Abdominal exam reveals normal bowel sounds. Non-tender and non- distended. No evidence of peritonitis. EXTREMITITES: No clubbing, cyanosis, or edema. Objective - Vital Signs Vital signs: Vital Signs Temp 97.3 F L 08/15/17 00:00 Pulse 69 08/15/17 08:33 Resp 18 08/15/17 04:00 BP 102/52 08/15/17 04:00 Pulse Ox 96 08/15/17 08:16 Intake & Output 08/14/17 08/15/17 08/15/17 18:59 06:59 18:59 Intake Total 240 100 237 Balance 240 100 237 Weight 81 kg Intake: Oral 240 100 237 Other: Voiding Method Urinal Urinal # Voids 0 - Labs CBC & Chem 7: 08/15/17 05:31 08/15/17 05:31 Labs: Abnormal Lab Results - Last 24 Hours (Table) 08/15/17 08/15/17 Range/Units 05:31 05:31 RBC 3.08 L (4.30-5.90) m/uL Hgb 8.6 L (13.0-17.5) gm/dL Hct 30.1 L (39.0-53.0) % MCHC 28.7 L (31.0-37.0) g/dL RDW 22.4 H (11.5-15.5) % Plt Count 115 L (150-450) k/uL Lymphocytes # 0.6 L (1.0-4.8) k/uL Sodium 134 L (137-145) mmol/L BUN 32 H (9-20) mg/dL Creatinine 3.70 H (0.66-1.25) mg/dL Microbiology - Last 24 Hours (Table) 08/11/17 18:16 Blood Culture - Preliminary Blood No Growth after 72 hours Assessment and Plan Plan: Assessment: #1. End-stage renal disease maintained on hemodialysis on a Wednesday schedule via right chest permacath. Patient was not cleared by cardiology to undergo AV fistula surgery. #2. Systolic CHF with ejection fraction of 20-25% with moderate pulmonary hypertension. #3. Chronic hypotension maintained on midodrine due to underlying cardiac status. Off all vasopressors. #4. Volume overload. Improved. #5. Anemia of chronic kidney disease. Iron deficiency noted. #6. Chronic kidney disease mineral bone disease maintained on Renvela. #7. Pleural effusion status post right-sided thoracentesis with 2 L drained on August 13. Plan: Hemodialysis Wednesday with goal 3-4 L ultrafiltration. Maintain midodrine 10 mg 3 times daily. Ferrlicit 125 mg IV once today. This will be his second dose. Maintain Aranesp. Low-salt and 1500 mL fluid restricted diet.
[2017-08-15] MEDS ORDERED: SODIUM FERRIC GLUCONAT-SUCROSE 125 MG in SODIUM CHLORIDE 0.9% 100 ML IVPB ONE (10:00)
--- NOTE | 2017-08-15 10:35 | P.PN ---
Subjective Progress Note Date: 08/15/17 Principal diagnosis: Acute hypotension and acute hypovolemic shock. This is a 72-year-old white male with history of multiple medical problems including end-stage renal disease, on hemodialysis, severe ischemic cardiomyopathy and previous ICD placement, history of chronic right-sided pleural effusion, history of chronic atrial fibrillation, history of coronary artery disease and previous coronary revascularization, patient was recently discharged from [facility] on 07/07/2017, and at that time I saw the patient for pleural effusion were and I performed thoracentesis and 1500 mL of fluid were drained. Patient's last dialysis was yesterday, since Wednesday the patient has been progressively weaker. Refused to go to the hospital but when he went home after dialysis yesterday, he felt quite shaky, had some blurred vision, and was generally weak. Brought into the hospital were in he was found to be hypotensive systolic blood pressure was in the low 70s and 80s. Patient was placed on levo fed, however by the time I evaluated the patient in the ICU, he was off norepinephrine. Patient is known to have history of severe LV dysfunction and ejection fraction is 20-25%. His also known to have history of moderate pulmonary hypertension. At any rate considering his chest x-ray is showing pulmonary edema and right-sided pleural effusion, I was asked to see him on consultation. Ultrasound of the chest clearly showed is 7.8 cm pocket of fluid in the right pleural space, and I would likely consider holding anticoagulation therapy, and I will arrange for thoracentesis. Reevaluated today on 08/13/2017, patient is basically about the same, continues to remain generally weak. Some shortness of breath with any activity, chest x- ray and ultrasound of the chest were reviewed, and I proceeded with a right- sided thoracentesis today, 2000 mL of fluid was removed from the right pleural space. Patient is going to receive hemodialysis today, and this is planned shortly after my thoracentesis. Patient is not requiring any hemodynamic support. CBC showed hemoglobin of 8.7 and electrolytes are normal BUN is 33 creatinine 3.50. Remains on antibiotics empirically, however I will go ahead and discontinue vancomycin. Blood cultures are negative so far Reevaluated today on 08/14/2017, patient is feeling much better, remained generally weak, no cough no wheezing no shortness of breath no nausea no vomiting no abdominal pain. His pulmonary status has significantly improved since his right sided thoracentesis. CBC is relatively about the same hemoglobin is 8.6 electrolytes are relatively normal except for low potassium of 3.3 BUN is 24 creatinine 2.98. Follow-up chest x-ray yesterday after the thoracentesis showed dramatic improvement in his right pleural effusion. Reevaluated today on 08/15/2017, patient continues to do relatively well, asymptomatic, except for generalized weakness. Remains on hemodialysis Mondays 1 days and Fridays, patient is known to have chronic congestive heart failure and ejection fraction of 20% with moderate pulmonary hypertension and few days ago he underwent thoracentesis and 2 L of fluid were drained from the right pleural space. Objective - Vital Signs Vital signs: Vital Signs Temp 97.1 F L 08/15/17 08:00 Pulse 69 08/15/17 08:33 Resp 20 08/15/17 08:00 BP 81/49 08/15/17 08:00 Pulse Ox 96 08/15/17 08:16 Intake & Output 08/14/17 08/15/17 08/15/17 18:59 06:59 18:59 Intake Total 240 100 237 Balance 240 100 237 Weight 81 kg Intake: Oral 240 100 237 Other: Voiding Method Urinal Urinal Urinal # Voids 0 - Exam Gen. appearance, comfortable no acute distress. Head exam was generally normal. There was no scleral icterus or corneal arcus. Mucous membranes were moist. Patient looks a bit pale. Neck was supple and without jugular venous distension, thyromegaly, or carotid bruits. Carotids were easily palpable bilaterally. There was no adenopathy. His got a permacath in his right subclavian area. Exit site is clean at this point Pulmonary: Diminished breath sounds bilaterally, no crackles or rhonchi or wheezes. Heart sounds are distant, positive S1-S2, rhythm. 2/6 systolic murmur throughout the precordium. Abdominal exam revealed normal bowel sounds. The abdomen was soft, non-tender, and without masses, organomegaly, or appreciable enlargement of the abdominal aorta. Examination of the extremities revealed easily palpable radial, femoral and pedal pulses. There was no cyanosis, clubbing or edema. Skin is thin and brittle and there is some ecchymotic areas and some superficial skin tears throughout his upper extremities. Neurologically is awake and alert and there is no focal neurological deficit. Skeletal exam shows no significant deformities or swelling Psychiatric: Adequate mental status examination, patient does have a blunt affect, - Labs CBC & Chem 7: 08/15/17 05:31 08/15/17 05:31 Labs: Abnormal Lab Results - Last 24 Hours (Table) 08/15/17 08/15/17 Range/Units 05:31 05:31 RBC 3.08 L (4.30-5.90) m/uL Hgb 8.6 L (13.0-17.5) gm/dL Hct 30.1 L (39.0-53.0) % MCHC 28.7 L (31.0-37.0) g/dL RDW 22.4 H (11.5-15.5) % Plt Count 115 L (150-450) k/uL Lymphocytes # 0.6 L (1.0-4.8) k/uL Sodium 134 L (137-145) mmol/L BUN 32 H (9-20) mg/dL Creatinine 3.70 H (0.66-1.25) mg/dL Microbiology - Last 24 Hours (Table) 08/11/17 18:16 Blood Culture - Preliminary Blood No Growth after 72 hours Assessment and Plan Assessment: Impression: 1 acute hypovolemic shock, possibility of sepsis and septic shock is less likely. His hypertension seems to be related to his recent hemodialysis and ultrafiltration. Not to mention the patient is known to have history of chronic hypotension related to severe LV function and has been on midodrine 10 mg 3 times a day for quite some time. 2 chronic right-sided pleural effusion and chronic systolic congestive heart failure. Will likely consider again a right-sided thoracentesis however I would have to hold Plavix for now. 3 status post right sided thoracentesis and 2 L of fluid were removed. This was done on 08/13/2017. The fluid was not sent for any diagnostic studies. 4 multiple comorbidities including chronic renal failure and end-stage renal disease, COPD, peripheral vessel occlusive disease, coronary artery disease and previous stenting as well as previous bypass surgery, chronic hypotension, hyperlipidemia, hypothyroidism, chronic anemia, chronic medical debility, and previous history of syncope. Recommendation: Continue present supportive care measures, consider discharge planning in the next 24 hours. Time with Patient: Less than 30
[2017-08-15] MEDS: CYANOCOBALAMIN 500 MCG TAB PO SCH (12:06)
--- NOTE | 2017-08-15 13:35 | P.PN ---
Progress Note - Text Progress Note Date: 08/15/17 DATE OF SERVICE: 08/15/2017 PRESENTING COMPLAINT: Tired short of breath HISTORY OF PRESENT ILLNESS: 72-year-old male resents to the emergency department because he is not been feeling well for the last 3 or 4 days. Has end-stage kidney disease with hemodialysis on Wednesdays. Patient had been to his most recent hemodialysis treatment and he felt more weak and tired and usual blood pressure was found to be in the 70s systolic. Chest x-ray showed pleural effusions and pulmonary edema more so on the right side. Found to be anemic acute on chronic congestive heart failure exacerbation and was admitted for the same. INTERVAL HISTORY: 08/15/2017: Patient seen in follow-up today on 6 E. at the bedside, more perky today. Breathing much improved, tolerating his diet at about 50%, primarily wheelchair-bound requires assistance for getting around. Hemodialysis scheduled for Wednesday after that patient will potentially discharged to rehab facility pending authorization. Last BM 08/13/2017. 08/14/2017: Patient seen in follow-up today on 6 E. Tired appearing status post thoracentesis yesterday 2 L of fluid removed. States breathing is much improved , tolerating about 50% of his diet primarily wheelchair-bound requires assistance for getting around. Hemodialysis will be on Wednesday discharge planning for her rehabilitation for strengthening. Discussion had with the bedside with attending physician Dr. Traylor about CODE STATUS patient and understand state of patient's current condition and are agreeable changing CODE STATUS from full code to no code. 08/13/2017: Patient seen in follow-up today in the ICU, appears tired, patient is status post thoracentesis at the bedside by Dr. Vega, 2 L of fluid removed. Patient' s breathing is much improved. Blood pressure continues to be low systolic 70s to 90s, on midodrine. This is patient's norm. Tolerating about 50% of his diet , is primarily wheelchair-bound so he requires assistance for moving about. Planning for hemodialysis today and remove 3 L if patient can tolerate. REVIEW OF SYSTEMS: Done for constitutional ,cardiovascular, GI, pulmonary with relevant findings as above. CURRENT MEDICATIONS DuoNeb's, Xanax 0.25 mg by mouth daily when necessary, Xanax 0.5 mg by mouth at bedtime, budesonide/formoterol, Aranesp 40 g subcu's every 7 days, heparin 5000 units subcu every 8 hours, Synthroid 137 g by mouth daily Cytomel 5 g by mouth twice a day, ProAmatine 10 mg by mouth before meals 3 times a day, Remeron 15 mg by mouth at bedtime Nephrocaps one by mouth at bedtime, Protonix 40 mg by mouth at bedtime, Renvela 800 mg by mouth before meals twice a day, Silvadene cream applied for local wound care PHYSICAL EXAM VITAL SIGNS: Temperature 97.1, pulse 61, respiratory rate 20, blood pressure 81/49, oxygen saturation 94% on 2 L GENERAL APPEARANCE: Thin build Lying in bed, not in distress. EYES: Pupils equal. Conjunctiva normal. NECK: JVD not raised. Mass not palpable. RESPIRATORY: Respiratory effort normal. Lungs diminished to auscultation. CARDIOVASCULAR: First and second sounds normal. No edema. ABDOMEN: Soft. Liver and spleen not palpable. No tenderness. No mass palpable. PSYCHIATRY: Alert and oriented x3. Mood and affect normal. INVESTIGATIONS: Hemoglobin 8.6, sodium 134, BUN 32, creatinine 3.70, Accu-Cheks noted. ASSESSMENT: -Acute on chronic congestive heart failure exacerbation from systolic and diastolic dysfunction, ejection fraction 20-25%. Underlying hypertensive heart disease. -Status post thoracentesis, 2 L of fluid removed from the right pleural space -Chronically hypotensive for multiple reasons. Patient has been on a small dose of Levophed overnight now discontinued. -End-stage kidney disease on hemodialysis Wednesday, and Wednesday. -Acute chronic obstructive pulmonary disease exacerbation and an ex-smoker. -Automatic implantable cardioverter defibrillator. -Hyperlipidemia. -Hypothyroidism. -Benign prostatic hypertrophy. -Anemia secondary to chronic kidney disease. -Bilateral pleural effusion. -Underlying congestive heart failure, right greater than left. -Secondary pulmonary hypertension secondary to chronic obstructive pulmonary disease. -Coronary artery disease with prior history of stent. -Depression not otherwise specified. -Moderate protein calorie malnutrition with decreased muscle mass and hypoalbuminemia -Secondary hyperparathyroidism. -Chronic hypotension from decreased muscle mass. Poor ejection fraction. -CODE STATUS: DO NOT RESUSCITATE PLAN: Continue current medication treatment plan hemodialysis scheduled for Wednesday, possible discharge afterwards provided appropriate authorizations come in for rehabilitation. Prognosis remains guarded plan of care discussed with the and the patient at the bedside. We will follow closely. SCALE RECLAMATION TENDER statement: Patient was seen and examined by nurse practitioner Dulce Burt and all elements of the case discussed with attending Dr. Traylor
--- NOTE | 2017-08-15 19:21 | PN ---
PROGRESS NOTE DATE OF SERVICE: 08/15/17. ATTENDING NOTE: The patient is seen and exam by me. I discussed with nurse practitioner, Ms. Burt. The patient is doing better, though tired. Really did not want to get out of bed though eating his meals. EXAM: LUNGS: Decreased breath sounds. Awake, answering questions. Family at the bedside. On examination temperature 97, blood pressure 87/46, pulse ox 88% on 2 L. Lungs decreased breath sounds. INVESTIGATION: Hemoglobin 8.6, potassium 3.6. ASSESSMENT: Acute congestive heart failure exacerbation with systolic dysfunction, ejection fraction around 25%, diastolic dysfunction, stabilized, status post thoracentesis. Prognosis is not good. PLAN: Spoke with the , the patient and daughter. The patient to go to rehab tomorrow. CONNIE / GABRIELN: [id number] /
[2017-08-15] MEDS: ALPRAZolam 0.5 MG TAB PO SCH (20:11)
[2017-08-15] MEDS: MIRTAZAPINE 15 MG TAB PO SCH (20:11)
[2017-08-15] MEDS: PANTOPRAZOLE 40 MG TABLET PO SCH (20:11)
[2017-08-15] MEDS: FOLIC ACID-VIT B COMPLEX-VIT C 1 CAP PO SCH (20:11)
[2017-08-15] MEDS: SODIUM CHLORIDE 0.9% 500 ML IV SCH (20:12)
[2017-08-16] MEDS: HEPARIN SODIUM,PORCINE 5,000 UNIT/ML 1 ML VIAL SQ SCH ×4 (00:48→22:43)
[2017-08-16] MEDS: SEVELAMER 800 MG TAB PO SCH ×2 (06:25→16:52)
[2017-08-16] MEDS: MIDODRINE 5 MG TAB PO SCH ×3 (06:25→16:53)
[2017-08-16] MEDS: LEVOTHYROXINE 137 MCG TAB PO SCH (06:25)
[2017-08-16 06:36] LABS: Anisocytosis Moderate; Basophils % (A) 1 %; CH 27.9; CHCM 28.2; Eosinophils # (A) 0.3 k/uL (0-0.7); Eosinophils % (A) 7 %; HCT 31.8 % (39.0-53.0); HDW 3.77; HGB 8.9 gm/dL (13.0-17.5); Hypochromasia Marked; Luc # (Auto) 0.11; Luc % (Auto) 3; Lymphocytes # (A) 0.7 k/uL (1.0-4.8); Lymphocytes % (A) 15 %; MCH 28.1 pg (25.0-35.0); MCV 100.1 fL (80.0-100.0); Macrocytosis Moderate; Mean Platelet Volume 7.8; Monocytes # (A) 0.3 k/uL (0-1.0); Monocytes % (A) 8 %; Neutrophils % (A) 67 %; Poikilocytosis Slight; RBC 3.18 m/uL (4.30-5.90); RDW 20.9 % (11.5-15.5); WBC 4.5 k/uL (3.8-10.6); WBC (Perox) 4.64
[2017-08-16 06:45] LABS: Calcium 8.9 mg/dL (8.4-10.2); Phosphorus 4.1 mg/dL (2.5-4.5); Potassium 4.1 mmol/L (3.5-5.1)
[2017-08-16] MEDS: SYMBICORT 80-4.5 MCG INHALER INHALATION SCH ×2 (08:07→20:11)
[2017-08-16] MEDS: IPRATROPIUM-ALBUTEROL 3 ML NEB INHALATION SCH ×4 (08:07→20:11)
[2017-08-16] MEDS: LIOTHYRONINE SODIUM 5 MCG TAB PO SCH ×2 (08:57→20:34)
[2017-08-16] MEDS: CYANOCOBALAMIN 500 MCG TAB PO SCH (12:19)
--- NOTE | 2017-08-16 14:37 | P.PN ---
Progress Note - Text Progress Note Date: 08/16/17 DATE OF SERVICE: 08/16/2017 PRESENTING COMPLAINT: Tired short of breath HISTORY OF PRESENT ILLNESS: 72-year-old male resents to the emergency department because he is not been feeling well for the last 3 or 4 days. Has end-stage kidney disease with hemodialysis on Wednesday. Patient had been to his most recent hemodialysis treatment and he felt more weak and tired and usual blood pressure was found to be in the 70s systolic. Chest x-ray showed pleural effusions and pulmonary edema more so on the right side. Found to be anemic acute on chronic congestive heart failure exacerbation and was admitted for the same. INTERVAL HISTORY: 08/16/2017: Patient seen in follow-up on 6 E. today, sitting in a chair and daughter at the bedside. Breathing is much improved, tolerating his diet about 50% of it each meal. Primarily wheelchair-bound requires assistance for getting around. Hemodialysis scheduled for today, tentative discharge planning to [facility] waiting for insurance prior authorization. Last BM 08/1608/15/2017: Patient seen in follow-up today on 6 E. at the bedside, more perky today. Breathing much improved, tolerating his diet at about 50%, primarily wheelchair-bound requires assistance for getting around. Hemodialysis scheduled for Wednesday after that patient will potentially discharged to rehab facility pending authorization. Last BM 08/13/2017. 08/14/2017: Patient seen in follow-up today on 6 E. Tired appearing status post thoracentesis yesterday 2 L of fluid removed. States breathing is much improved , tolerating about 50% of his diet primarily wheelchair-bound requires assistance for getting around. Hemodialysis will be on Wednesday discharge planning for her rehabilitation for strengthening. Discussion had with the bedside with attending physician Dr. Traylor about CODE STATUS patient and understand state of patient's current condition and are agreeable changing CODE STATUS from full code to no code. 08/13/2017: Patient seen in follow-up today in the ICU, appears tired, patient is status post thoracentesis at the bedside by Dr. Vega, 2 L of fluid removed. Patient' s breathing is much improved. Blood pressure continues to be low systolic 70s to 90s, on midodrine. This is patient's norm. Tolerating about 50% of his diet , is primarily wheelchair-bound so he requires assistance for moving about. Planning for hemodialysis today and remove 3 L if patient can tolerate. REVIEW OF SYSTEMS: Done for constitutional ,cardiovascular, GI, pulmonary with relevant findings as above. CURRENT MEDICATIONS DuoNeb's, Xanax 0.25 mg by mouth daily when necessary, Xanax 0.5 mg by mouth at bedtime, budesonide/formoterol, Aranesp 40 g subcu's every 7 days, heparin 5000 units subcu every 8 hours, Synthroid 137 g by mouth daily Cytomel 5 g by mouth twice a day, ProAmatine 10 mg by mouth before meals 3 times a day, Remeron 15 mg by mouth at bedtime Nephrocaps one by mouth at bedtime, Protonix 40 mg by mouth at bedtime, Renvela 800 mg by mouth before meals twice a day, Silvadene cream applied for local wound care PHYSICAL EXAM VITAL SIGNS: Temperature 97.1, pulse 73, respiratory rate 18, blood pressure 111/62, oxygen saturation 91% on 2 L nasal cannula GENERAL APPEARANCE: Thin build sitting up in a chair at the bedside not in distress. EYES: Pupils equal. Conjunctiva normal. NECK: JVD not raised. Mass not palpable. RESPIRATORY: Respiratory effort normal. Lungs diminished to auscultation. CARDIOVASCULAR: First and second sounds normal. No edema. ABDOMEN: Soft. Liver and spleen not palpable. No tenderness. No mass palpable. PSYCHIATRY: Alert and oriented x3. Mood and affect normal. INVESTIGATIONS: Hemoglobin 8.9, sodium 132, BUN 39, creatinine 4.50 ASSESSMENT: -Acute on chronic congestive heart failure exacerbation from systolic and diastolic dysfunction, ejection fraction 20-25%. Underlying hypertensive heart disease, stabilized -Status post thoracentesis, 2 L of fluid removed from the right pleural space -Chronically hypotensive for multiple reasons. Patient has been on a small dose of Levophed overnight now discontinued. -End-stage kidney disease on hemodialysis Wednesday, and Wednesday. -Acute chronic obstructive pulmonary disease exacerbation and an ex-smoker. -Automatic implantable cardioverter defibrillator. -Hyperlipidemia. -Hypothyroidism. -Benign prostatic hypertrophy. -Anemia secondary to chronic kidney disease. -Bilateral pleural effusion. -Underlying congestive heart failure, right greater than left. -Secondary pulmonary hypertension secondary to chronic obstructive pulmonary disease. -Coronary artery disease with prior history of stent. -Depression not otherwise specified. -Moderate protein calorie malnutrition with decreased muscle mass and hypoalbuminemia -Secondary hyperparathyroidism. -Chronic hypotension from decreased muscle mass. Poor ejection fraction. -CODE STATUS: DO NOT RESUSCITATE PLAN: Continue current medication treatment plan hemodialysis scheduled for Wednesday, possible discharge afterwards provided appropriate authorizations come in for rehabilitation. Prognosis remains guarded plan of care discussed with the and the patient at the bedside. We will follow closely. METAL FURNITURE POLISHER statement: Patient was seen and examined by nurse practitioner Dulce Burt and all elements of the case discussed with attending Dr. Traylor
[2017-08-16] MEDS ORDERED: HEPARIN SODIUM,PORCINE 5,000 UNIT/ML 1 ML VIAL ONE (19:30)
[2017-08-16] MEDS: MIRTAZAPINE 15 MG TAB PO SCH (20:34)
[2017-08-16] MEDS: ALPRAZolam 0.5 MG TAB PO SCH (20:34)
[2017-08-16] MEDS: PANTOPRAZOLE 40 MG TABLET PO SCH (20:34)
[2017-08-16] MEDS: FOLIC ACID-VIT B COMPLEX-VIT C 1 CAP PO SCH (20:34)
[2017-08-16] MEDS: SODIUM CHLORIDE 0.9% 500 ML IV SCH (20:35)
--- NOTE | 2017-08-16 21:37 | PN ---
PROGRESS NOTE DATE OF SERVICE: August 16, 2017. ATTENDING NOTE: Patient seen and examined by me. I discussed with nurse practitioner, Ms. Burt. The patient is sitting in a chair comfortable, tolerating his diet. street worker looking into his transfer to the ECF. EXAMINATION: Awake, answering questions. Decreased breath sounds. Cardiovascular first and second sounds normal. Temperature 96.8, blood pressure 130/57, respiration 20, hemoglobin 8.9, potassium 4.1. ASSESSMENT: 1. Chronic hypotension, multifactorial including low ejection fraction. 2. End-stage kidney disease. PLAN: Care was discussed with the patient and the family at the bedside including the daughter and the . Awaiting transfer to the ECF. MMODL / IJN: [id number] /
--- NOTE | 2017-08-16 22:21 | PN ---
PROGRESS NOTE Patient is seen for followup for end-stage renal disease. He is scheduled for hemodialysis today. EXAMINATION: Blood pressure 91/64, heart rate 69 per minute. He is afebrile. Examination of the heart S1, S2. Examination lungs bilateral breath sounds are heard. Abdomen is soft, nontender. Examination lower extremities shows chronic skin changes. Bilaterally extremities are wrapped. FARM MECHANIC APPRENTICE exam is grossly intact. LABS SHOW: Sodium 132, potassium 4.1, hemoglobin 8.9 g/dL. ASSESSMENT: 1. End-stage renal disease, on hemodialysis on a Wednesday, Wednesday, Wednesday schedule. The patient will be dialyzed today. 2. Fluid overload, slowly improving. 3. Pleural effusion status post thoracentesis on the right side. 4. Cardiomyopathy. 5. Chronic kidney disease, mineral bone disorder. 6. Anemia of chronic disease. PLAN: Hemodialysis today. Increase UF as tolerated. Continue to maintain patient on midodrine and Aranesp. MMODL / IJN: [id number] /
[2017-08-17 06:04] LABS: Anisocytosis Moderate; Basophils % (A) 1 %; CH 27.3; CHCM 28.6; Eosinophils # (A) 0.4 k/uL (0-0.7); Eosinophils % (A) 8 %; HDW 3.79; HGB 8.9 gm/dL (13.0-17.5); Hypochromasia Marked; Luc # (Auto) 0.09; Luc % (Auto) 2; Lymphocytes # (A) 0.6 k/uL (1.0-4.8); Lymphocytes % (A) 14 %; MCH 27.8 pg (25.0-35.0); MCHC 28.7 g/dL (31.0-37.0); Macrocytosis Moderate; Mean Platelet Volume 8.1; Monocytes # (A) 0.4 k/uL (0-1.0); Monocytes % (A) 9 %; Neutrophils # (A) 3.2 k/uL (1.3-7.7); Neutrophils % (A) 67 %; Poikilocytosis Slight; RBC 3.19 m/uL (4.30-5.90); RDW 22.4 % (11.5-15.5); WBC 4.7 k/uL (3.8-10.6); WBC (Perox) 4.95
[2017-08-17 06:24] LABS: Calcium 9.1 mg/dL (8.4-10.2); Magnesium 1.9 mg/dL (1.6-2.3); Phosphorus 3.2 mg/dL (2.5-4.5); Potassium 3.9 mmol/L (3.5-5.1)
[2017-08-17] MEDS: SEVELAMER 800 MG TAB PO SCH ×2 (06:38→17:51)
[2017-08-17] MEDS: MIDODRINE 5 MG TAB PO SCH ×3 (06:38→17:51)
[2017-08-17] MEDS: LEVOTHYROXINE 137 MCG TAB PO SCH (06:38)
[2017-08-17] MEDS: SYMBICORT 80-4.5 MCG INHALER INHALATION SCH ×2 (08:32→19:52)
[2017-08-17] MEDS: IPRATROPIUM-ALBUTEROL 3 ML NEB INHALATION SCH ×4 (08:32→19:52)
[2017-08-17] MEDS: LIOTHYRONINE SODIUM 5 MCG TAB PO SCH ×2 (08:38→21:23)
[2017-08-17] MEDS: HEPARIN SODIUM,PORCINE 5,000 UNIT/ML 1 ML VIAL SQ SCH ×3 (08:38→22:57)
[2017-08-17 10:31] VITALS: BMI 21.9
[2017-08-17] MEDS: CYANOCOBALAMIN 500 MCG TAB PO SCH (11:55)
--- NOTE | 2017-08-17 15:37 | P.PN ---
Progress Note - Text Progress Note Date: 08/17/17 DATE OF SERVICE: 08/17/2017 PRESENTING COMPLAINT: Tired short of breath HISTORY OF PRESENT ILLNESS: 72-year-old male resents to the emergency department because he is not been feeling well for the last 3 or 4 days. Has end-stage kidney disease with hemodialysis on Wednesday. Patient had been to his most recent hemodialysis treatment and he felt more weak and tired and usual blood pressure was found to be in the 70s systolic. Chest x-ray showed pleural effusions and pulmonary edema more so on the right side. Found to be anemic acute on chronic congestive heart failure exacerbation and was admitted for the same. INTERVAL HISTORY: 08/17/2017: Patient seen in follow-up on 6 E. today, lying in bed, tired appearing states patient seems a bit more sleepy today. Wants explanation as to what's wrong. Provided explanation as to the nature of the patient's condition and will have good days and bad. Breathing is unlabored, occasional cough noted no sputum production. Spoke with dietary regarding changing his current diet plan , now on a regular low sodium diet. He ate about 30% of his meal today, up with assistance. Last BM 08/16/2017. 08/16/2017: Patient seen in follow-up on 6 E. today, sitting in a chair and daughter at the bedside. Breathing is much improved, tolerating his diet about 50% of it each meal. Primarily wheelchair-bound requires assistance for getting around. Hemodialysis scheduled for today, tentative discharge planning to [facility] waiting for insurance prior authorization. Last BM 08/1608/15/2017: Patient seen in follow-up today on 6 E. at the bedside, more perky today. Breathing much improved, tolerating his diet at about 50%, primarily wheelchair-bound requires assistance for getting around. Hemodialysis scheduled for Wednesday after that patient will potentially discharged to rehab facility pending authorization. Last BM 08/13/2017. 08/14/2017: Patient seen in follow-up today on 6 E. Tired appearing status post thoracentesis yesterday 2 L of fluid removed. States breathing is much improved , tolerating about 50% of his diet primarily wheelchair-bound requires assistance for getting around. Hemodialysis will be on Wednesday discharge planning for her rehabilitation for strengthening. Discussion had with the bedside with attending physician Dr. Traylor about CODE STATUS patient and understand state of patient's current condition and are agreeable changing CODE STATUS from full code to no code. 08/13/2017: Patient seen in follow-up today in the ICU, appears tired, patient is status post thoracentesis at the bedside by Dr. Vega, 2 L of fluid removed. Patient' s breathing is much improved. Blood pressure continues to be low systolic 70s to 90s, on midodrine. This is patient's norm. Tolerating about 50% of his diet , is primarily wheelchair-bound so he requires assistance for moving about. Planning for hemodialysis today and remove 3 L if patient can tolerate. REVIEW OF SYSTEMS: Done for constitutional ,cardiovascular, GI, pulmonary with relevant findings as above. CURRENT MEDICATIONS DuoNeb's, Xanax 0.25 mg by mouth daily when necessary, Xanax 0.5 mg by mouth at bedtime, budesonide/formoterol, Aranesp 40 g subcu's every 7 days, heparin 5000 units subcu every 8 hours, Synthroid 137 g by mouth daily Cytomel 5 g by mouth twice a day, ProAmatine 10 mg by mouth before meals 3 times a day, Remeron 15 mg by mouth at bedtime Nephrocaps one by mouth at bedtime, Protonix 40 mg by mouth at bedtime, Renvela 800 mg by mouth before meals twice a day, Silvadene cream applied for local wound care PHYSICAL EXAM VITAL SIGNS: Temperature 97.4, pulse 71, respiratory rate 22, blood pressure 89/50, oxygen saturation 91% on 2 L. GENERAL APPEARANCE: Thin build sitting up in a chair at the bedside not in distress. EYES: Pupils equal. Conjunctiva normal. NECK: JVD not raised. Mass not palpable. RESPIRATORY: Respiratory effort normal. Lungs diminished to auscultation. CARDIOVASCULAR: First and second sounds normal. No edema. ABDOMEN: Soft. Liver and spleen not palpable. No tenderness. No mass palpable. PSYCHIATRY: Alert and oriented x3. Mood and affect normal. INVESTIGATIONS: Hemoglobin 8.9, sodium 134, BUN 29, creatinine 3.89 ASSESSMENT: -Acute on chronic congestive heart failure exacerbation from systolic and diastolic dysfunction, ejection fraction 20-25%. Underlying hypertensive heart disease, stabilized -Status post thoracentesis, 2 L of fluid removed from the right pleural space -Chronically hypotensive multifactorial including low ejection fraction -End-stage kidney disease on hemodialysis Wednesday and Wednesday. -Acute chronic obstructive pulmonary disease exacerbation and an ex-smoker. -Automatic implantable cardioverter defibrillator. -Hyperlipidemia. -Hypothyroidism. -Benign prostatic hypertrophy. -Anemia secondary to chronic kidney disease. -Bilateral pleural effusion. -Underlying congestive heart failure, right greater than left. -Secondary pulmonary hypertension secondary to chronic obstructive pulmonary disease. -Coronary artery disease with prior history of stent. -Depression not otherwise specified. -Moderate protein calorie malnutrition with decreased muscle mass and hypoalbuminemia -Secondary hyperparathyroidism. -Chronic hypotension from decreased muscle mass. Poor ejection fraction. -CODE STATUS: DO NOT RESUSCITATE PLAN: Continue current medication treatment plan hemodialysis scheduled for Wednesday , possible discharge afterwards provided room available. Prognosis remains guarded plan of care discussed with the and the patient at the bedside. We will follow closely. ROLL HAND statement: Patient was seen and examined by nurse practitioner Dulce Burt and all elements of the case discussed with attending Dr. Traylor
--- NOTE | 2017-08-17 20:25 | PN ---
PROGRESS NOTE Patient is seen for followup for end-stage renal disease. He has been lethargic and sleeping most of the time. He is easily arousable and has not been eating much. Currently awaiting placement to an extended care facility. Patient is normally on a Wednesday, Wednesday, Wednesday schedule for dialysis. EXAMINATION: Blood pressure 96/55, heart rate 70 per minute. He is afebrile. Examination of the heart S1, S2. Examination lungs decreased breath sounds at bases. Abdomen is soft, nontender. Examination lower extremities shows chronic skin changes. Edema 1+ bilaterally. LAB: Show sodium 134, potassium 3.9, hemoglobin 8.9 g/dL. ASSESSMENT: 1. End-stage renal disease, on hemodialysis on a Wednesday, Wednesday, Wednesday schedule. 2. Fluid overload, currently improved. 3. Pleural effusion status post thoracentesis on the right side. 4. Cardiomyopathy. 5. Lethargy, check TSH. 6. Hypotension maintained on midodrine. PLAN: Check TSH tomorrow with dialysis and the patient is scheduled for hemodialysis in a.m. Continue with midodrine. MMODL / IJN: [id number] /
[2017-08-17] MEDS: MIRTAZAPINE 15 MG TAB PO SCH (21:23)
[2017-08-17] MEDS: FOLIC ACID-VIT B COMPLEX-VIT C 1 CAP PO SCH (21:23)
[2017-08-17] MEDS: PANTOPRAZOLE 40 MG TABLET PO SCH (21:23)
[2017-08-17] MEDS: ALPRAZolam 0.5 MG TAB PO SCH (21:23)
--- NOTE | 2017-08-18 02:23 | PN ---
PROGRESS NOTE DATE OF SERVICE: 08/17/2017. ATTENDING NOTE: The patient was seen and examined by me. I discussed with my nurse practitioner, Ms. Burt. The patient is sitting up in a chair. Did eat some, tired. is in the room. EXAMINATION: Temperature 98.2, pulse 72, blood pressure 96/55, pulse ox 93% on 2L. LUNGS: Decreased breath sounds. PSYCH: Awake, answering questions. INVESTIGATIONS: White count 4.7, hemoglobin 10.9. ASSESSMENT: Multiple medical problems, including end-stage kidney disease on hemodialysis. PLAN: Care was discussed with the patient. There was no bed available at [facility]. The patient will to go there tomorrow if one is available after hemodialysis. Care was discussed with the and the patient yet again. MMODL / IJN: [id number] /
[2017-08-18] MEDS: SODIUM CHLORIDE 0.9% 500 ML IV SCH (04:12)
[2017-08-18] MEDS: LEVOTHYROXINE 137 MCG TAB PO SCH (06:10)
[2017-08-18] MEDS: SYMBICORT 80-4.5 MCG INHALER INHALATION SCH (07:17)
[2017-08-18] MEDS: IPRATROPIUM-ALBUTEROL 3 ML NEB INHALATION SCH ×2 (07:17→11:02)
[2017-08-18 07:49] VITALS: BP 99/54; PULSE 72; RESP 16; TEMP 97.1
[2017-08-18] MEDS: MIDODRINE 5 MG TAB PO SCH ×2 (08:22→12:11)
[2017-08-18] MEDS: SEVELAMER 800 MG TAB PO SCH (08:23)
[2017-08-18] MEDS: HEPARIN SODIUM,PORCINE 5,000 UNIT/ML 1 ML VIAL SQ SCH (08:23)
[2017-08-18] MEDS: LIOTHYRONINE SODIUM 5 MCG TAB PO SCH (08:23)
[2017-08-18] MEDS: CYANOCOBALAMIN 500 MCG TAB PO SCH (12:14)
--- NOTE | 2017-08-18 13:11 | P.DS ---
Providers Date of admission: 08/11/17 20:24 Expected date of discharge: 08/18/17 Attending physician: Cameron Traylor Consults: 08/11/17 20:23 Consult Physician Stat Consulting Provider: Sheila Orozco Consult Reason/Comments: Mi Do you want consulting provider notified?: Yes Consult Physician Stat Consulting Provider: Bryon Street Consult Reason/Comments: hypotention,mi, Do you want consulting provider notified?: Yes Consult Physician Stat Consulting Provider: Gris Mcelroy Consult Reason/Comments: renal failure Do you want consulting provider notified?: Yes Primary care physician: [facility] Course: FINAL DIAGNOSES: -Acute on chronic congestive heart failure exacerbation from systolic and diastolic dysfunction, ejection fraction 20-25%. Underlying hypertensive heart disease. -Status post thoracentesis, 2 L of fluid removed from the right pleural space -Chronically hypotensive for multiple reasons. Patient has been on a small dose of Levophed overnight now discontinued. -End-stage kidney disease on hemodialysis Wednesday and Wednesday -Acute chronic obstructive pulmonary disease exacerbation and an ex-smoker. -Automatic implantable cardioverter defibrillator. -Hyperlipidemia. -Hypothyroidism. -Benign prostatic hypertrophy. -Anemia secondary to chronic kidney disease. -Bilateral pleural effusion. -Underlying congestive heart failure, right greater than left. -Secondary pulmonary hypertension secondary to chronic obstructive pulmonary disease. -Coronary artery disease with prior history of stent. -Depression not otherwise specified. -Moderate protein calorie malnutrition with decreased muscle mass and hypoalbuminemia -Secondary hyperparathyroidism. -Chronic hypotension from decreased muscle mass. Poor ejection fraction, maintained on midodrine. -CODE STATUS: DO NOT RESUSCITATE HOSPTIAL COURSE: 72-year-old male with history significant for end-stage kidney disease and congestive heart failure, presented with increasing weakness and feeling tired unusually low blood pressure. Chest x-ray revealed pleural effusion and pulmonary edema and was admitted for the same. Home medications reordered and due to his low blood pressure patient was admitted to the ICU and norepinephrine initiated. Pulmonology , cardiology and nephrology consulted. Initiated on norepinephrine however Patient's blood pressure is normally systolic in the 80s , Levophed weaned, continued on admitted drain to support his blood pressure. Chest x-ray revealed a very edema and right-sided pleural effusion, ultrasound showed a 7.8 pocket of fluid in the right pleural space, thoracentesis performed at the bedside, 2 L of fluid removed. Patient's breathing improved, no longer needed norepinephrine transferred to the medical floor. Hemodialysis continued throughout the course of his stay according to his current schedule which is Wednesday and Wednesday. Blood pressure stabilized systolically in the 80s to 90s which is where he normally is, breathing maintained, oxygen saturations 90 to 95 on 3 L, tolerates his dialysis treatments. Patient has some bilateral lower extremity weakness and would benefit from transfer to subacute rehab to increase strength and functional mobility before returning home. Patient tolerates his diet, up with assistance, moving his bowels. Condition is back to patient' baseline, cleared by consultants for discharge to subacute rehab, [facility]. PHYSICAL EXAM: CARDIOVASCULAR: Paced rhythm, generalized edema RESPIRATORY: Respiratory effort mildly increased, breath sounds diminished bilaterally, requires 3 L of oxygen to maintain oxygen saturations. GI: Abdomen soft nontender no guarding or rigidity liver and spleen not palpable MUSKULOSKELETAL: Bilateral lower extremity weakness requiring maximum assistance for transfer PSYCHIATRY: Alert and oriented 3, mood and affect a little tired appearing Patient was seen and examined by nurse practitioner Dulce Burt in all elements of the case discussed with attending Dr. Traylor DISPOSITION: Discharged to [facility] Patient Condition at Discharge: Stable Plan - Discharge Summary Discharge Rx Participant: Yes New Discharge Prescriptions: New Ipratropium-Albuterol Nebulize [Duoneb 0.5 mg-3 mg/3 ml Soln] 3 ml INHALATION RT-QID ampul.neb SILVER sulfADIAZINE CREAM [Silvadene Cream] 1 applic TOPICAL DAILY applic Budesonide [Pulmicort] 0.5 mg INHALATION BID #1 neb Darbepoetin Xander [Aranesp] 40 mcg SQ Q7D syringe Continue Omeprazole [PriLOSEC] 20 mg PO HS Liothyronine Sodium [Cytomel] 5 mcg PO BID Clopidogrel Bisulfate [Plavix] 75 mg PO DAILY Midodrine [ProAmatine] 10 mg PO TID Acetaminophen Tab [Tylenol] 500 mg PO Q6HR PRN PRN Reason: Pain Mirtazapine [Remeron] 15 mg PO HS Cyanocobalamin [Vitamin B-12] 500 mcg PO DAILY Levothyroxine Sodium [Synthroid] 137 mcg PO DAILY Renal Vitamin 1 tab PO HS Sevelamer [Renvela] 800 mg PO AC-BID Ipratropium-Albuterol Nebulize [Duoneb 0.5 mg-3 mg/3 ml Soln] 3 ml INHALATION RT-QID PRN PRN Reason: Shortness Of Breath ALPRAZolam [Xanax] 0.25 mg PO DAILY PRN #10 tab PRN Reason: Anxiety Discontinued Albuterol Inhaler [Ventolin Hfa Inhaler] 2 puff INHALATION RT-QID PRN PRN Reason: Shortness Of Breath Budesonide/Formoterol Fumarate [Symbicort 80-4.5 Mcg Inhaler] 2 puff INHALATION RT-BID ALPRAZolam [Xanax] 0.5 mg PO HS Discharge Medication List Clopidogrel Bisulfate [Plavix] 75 mg PO DAILY 12/12/16 [History] Liothyronine Sodium [Cytomel] 5 mcg PO BID 12/12/16 [History] Omeprazole [PriLOSEC] 20 mg PO HS 12/12/16 [History] Midodrine [ProAmatine] 10 mg PO TID 05/29/17 [History] Acetaminophen Tab [Tylenol] 500 mg PO Q6HR PRN 06/26/17 [History] Cyanocobalamin [Vitamin B-12] 500 mcg PO DAILY 06/26/17 [History] Levothyroxine Sodium [Synthroid] 137 mcg PO DAILY 06/26/17 [History] Mirtazapine [Remeron] 15 mg PO HS 06/26/17 [History] Renal Vitamin 1 tab PO HS 06/26/17 [History] Ipratropium-Albuterol Nebulize [Duoneb 0.5 mg-3 mg/3 ml Soln] 3 ml INHALATION RT -QID PRN 08/11/17 [History] Sevelamer [Renvela] 800 mg PO AC-BID 08/11/17 [History] Ipratropium-Albuterol Nebulize [Duoneb 0.5 mg-3 mg/3 ml Soln] 3 ml INHALATION RT -QID ampul.neb 08/16/17 [Rx] SILVER sulfADIAZINE CREAM [Silvadene Cream] 1 applic TOPICAL DAILY applic 08/16 [Rx] ALPRAZolam [Xanax] 0.25 mg PO DAILY PRN #10 tab 08/18/17 [Rx] Budesonide [Pulmicort] 0.5 mg INHALATION BID #1 neb 08/18/17 [Rx] Darbepoetin Xander [Aranesp] 40 mcg SQ Q7D syringe 08/18/17 [Rx] Follow up Appointment(s)/Referral(s): Bryon Street MD [STAFF PHYSICIAN] - 1 Week Jamal Posada DO [Primary Care Provider] - As Needed Jaxon Koenig MD [STAFF PHYSICIAN] - 08/17/17 Jean Marie DO [STAFF PHYSICIAN] - 1 Week Ambulatory/Diagnostic Orders: Basic Metabolic Panel [LAB.AMB] Location: Determined By Patient Complete Blood Count w/diff [LAB.AMB] Location: Determined By Patient Activity/Diet/Wound Care/Special Instructions: Heart Healthy diet continue local wound care with silvadene cream Discharge Disposition: TRANSFER TO SNF/ECF
--- NOTE | 2017-08-18 19:45 | PN ---
PROGRESS NOTE Patient is seen for followup for end-stage renal disease. Patient is currently seen on dialysis. He is sitting up in bed. He is comfortable. He is not in any acute distress. His and daughter are present at bedside. The patient will be discharged today to rehab facility. PHYSICAL EXAMINATION: Blood pressure was 99/54 earlier this morning. Heart rate 66 per minute. Patient is afebrile. Examination shows chronic skin changes, lower extremities, with trace edema bilaterally. Abdomen is soft, nontender. EXAMINATION OF THE HEART: S1, S2. EXAMINATION OF LUNGS: Bilateral breath sounds are heard. LABS: Sodium 134, potassium 3.9, hemoglobin 8.9 g/dL. ASSESSMENT: 1. End-stage renal disease, on hemodialysis on a Wednesday, Wednesday, Wednesday schedule via [facility]. 2. Chronic hypotension, maintained on midodrine. 3. Fluid overload, slowly improved. 4. Pleural effusion, status post thoracentesis on the right side; close to 2 liters. 5. Generalized debility. PLAN: Hemodialysis today, and then patient will follow up as outpatient for his regular treatment on Wednesday as outpatient. MMGERALDOL / IJN: [id number] /
--- NOTE | 2017-08-19 05:12 | DS ---
DISCHARGE SUMMARY DATE OF SERVICE: 08/18/2017 ATTENDING NOTE: Patient was seen and examined by me. I discussed with the nurse practitioner, Juan Pablosabrina. Had a very lengthy talk with the patient's . patient and the daughter. Did explain to them about overall guarded prognosis. They had questions about any further testing. Did talk in detail about the same. Making understand that the patient is very fortunate to still do as he is doing given his very poor cardiac condition, end-stage kidney disease. Did express expressed understanding. They wanted to check the thyroid status, but said in acute presentation the thyroid numbers will be off. Will not help us guide his treatment and if he remains stable at the [facility] in a week's time, they can repeat that. ON EXAM: LUNGS: Decreased breath sounds. Patient is tired. Answering simple questions. DISPOSITION: [facility]. Discharge planning more than 35 minutes. MMGERALDOL / GABRIELN: [id number] /
== END 2017-08-18 16:30 | DRG 291 ==
LOC: EC 17:34 → 6ICU 20:24 → 6SEL 08-13 19:48 → 5MS5E 08-17 13:12
PROVIDERS: ADMIT Hospitalist; ATTEND Hospitalist
PROC: 0W993ZZ Drainage of Right Pleural Cavity, Percutaneous Approach (ICD-10-PCS; principal; 2017-08-13)
PROC: 5A1D70Z Performance of Urinary Filtration, Intermittent, Less than 6 Hours Per Day (ICD-10-PCS; 2017-08-13)
DX: I50.43 Acute on chronic combined systolic (congestive) and diastolic (congestive) heart failure (principal); R57.1 Hypovolemic shock; N18.6 End stage renal disease; J44.1 Chronic obstructive pulmonary disease with (acute) exacerbation; E44.0 Moderate protein-calorie malnutrition; I48.1 Persistent atrial fibrillation; J90 Pleural effusion, not elsewhere classified; N25.81 Secondary hyperparathyroidism of renal origin; I48.2 Chronic atrial fibrillation; I27.29 Other secondary pulmonary hypertension; I95.89 Other hypotension; F32.9 Major depressive disorder, single episode, unspecified; E03.9 Hypothyroidism, unspecified; I25.5 Ischemic cardiomyopathy; E78.5 Hyperlipidemia, unspecified; I25.10 Atherosclerotic heart disease of native coronary artery without angina pectoris; D63.1 Anemia in chronic kidney disease; F17.200 Nicotine dependence, unspecified, uncomplicated; I73.9 Peripheral vascular disease, unspecified; M89.9 Disorder of bone, unspecified; F41.9 Anxiety disorder, unspecified; I71.4 Abdominal aortic aneurysm, without rupture; N40.0 Benign prostatic hyperplasia without lower urinary tract symptoms; R01.1 Cardiac murmur, unspecified; E87.6 Hypokalemia; Z66 Do not resuscitate; Z79.02 Long term (current) use of antithrombotics/antiplatelets; Z79.51 Long term (current) use of inhaled steroids; Z79.899 Other long term (current) drug therapy; Z99.3 Dependence on wheelchair; Z99.2 Dependence on renal dialysis; Z95.810 Presence of automatic (implantable) cardiac defibrillator; Z95.5 Presence of coronary angioplasty implant and graft; Z88.0 Allergy status to penicillin; Z88.8 Allergy status to other drugs, medicaments and biological substances; Z82.49 Family history of ischemic heart disease and other diseases of the circulatory system; Z68.24 Body mass index [BMI] 24.0-24.9, adult
CPT/HCPCS: 36415; 36556; 70450; 71010; 71020; 76604; 78582; 80048; 80053; 80202; 82550; 82553; 82728; 82803; 83540; 83550; 83605; 83735; 84100; 84443; 84484; 85025; 85027; 85379; 85610; 85730; 87040; 90935; 94640; 96361; 96365; 96366; 96368; 96375; 99291